=== PATIENT | male | born 1960 | race Caucasian/White ===

== ENCOUNTER 2016-10-05 13:07 | Day surgery (SDC) | payer OTHER ==
[2016-10-05 13:32] VITALS: BP 167/112; PULSE 97; RESP 20; TEMP 99.3; O2SAT 93
[2016-10-05] MEDS ORDERED: SUST600T PO (13:38)
[2016-10-05] MEDS ORDERED: TAMS5CAP PO (13:38)
[2016-10-05] MEDS ORDERED: HYDR25TA5 PO (13:38)
[2016-10-05] MEDS ORDERED: POTA-245 PO (13:38)
[2016-10-05] MEDS ORDERED: VALT1TAB PO (13:38)
[2016-10-05] MEDS ORDERED: AMLO10TA2 PO (13:38)
[2016-10-05] MEDS ORDERED: CLON0.2T PO (13:38)
[2016-10-05] MEDS ORDERED: EMTR1TAB4 PO (13:38)
[2016-10-05] MEDS ORDERED: ROSU10 PO (13:38)
[2016-10-05] MEDS ORDERED: ZOFR4TAB PO (13:38)
[2016-10-05] MEDS ORDERED: ASPI-147 PO (13:38)
[2016-10-05] MEDS ORDERED: LISI40TA PO (13:38)
[2016-10-05] MEDS ORDERED: SODIUM CHLOR 0.9% 1000 ML INJ 1,000 ML IV ONE (14:15)
[2016-10-05] MEDS ORDERED: PANTOPRAZOLE SODIUM 40 MG VIAL IV PUSH ONE (14:15)
[2016-10-05 14:23] VITALS: BP 166/112; PULSE 106; RESP 22; O2SAT 90
--- NOTE | 2016-10-05 15:42 | PD.RAD ---
Radiology Post PICC Prog Note Pre Procedure Diagnosis: (1) Dehydration Post Procedure Diagnosis: (1) Dehydration Procedure: Left PICC line placement Procedure Date: Oct 05, 2016 Supervising Radiologist Melchor Hogan Proceduralist/Assist: Mana Daniels RT(R)() Device Side: Left Italian: 4 single lumen cm: 49 Catheter: Power PICC Plan of Activity Patient to Unit: ROPU Patient Condition: Good PICC line can be used immediately Melchor Hogan MD Oct 05, 2016 15:42
[2016-10-05] MEDS ORDERED: SODIUM CHLORIDE 0.9% FLUSH 5 ML FLUSH IVF PRN ×2 (15:45)
[2016-10-06] MEDS ORDERED: SODIUM CHLORIDE 0.9% FLUSH 5 ML FLUSH IVF SCH (09:00)
--- NOTE | 2016-10-06 14:10 | RADRPT ---
EXAM DATE/TIME: 10/05/2016 14:07 [facility] COMPARISON: No previous studies available for comparison. INDICATIONS : Patient with dehydration in need of PICC line placement. MEDICAL HISTORY : HIV, HTN, HLD, Vitamin D deficiency SURGICAL HISTORY : None ENCOUNTER: Initial ACUITY: 2 weeks PAIN SCORE: 10/10 LOCATION: abdomen FLUORO TIME: 0.3 minutes IMAGE SERIES: 1 ACCESS: Left brachial vein DEVICE(S): 1.) 4 Lao single lumen 49 cm Xcela Power PICC PROCEDURE : 1. Ultrasound guidance for venous catheterization. 2. Fluoroscopic guidance. 3. Ultrasound & fluoroscopic guided central venous Power PICC line placement. The risks, benefits and alternatives to the procedure were explained and verbal and written consent w as obtained. The site was prepped in sterile fashion. Full sterile technique was used, including ca p, mask, sterile gloves and gown and a large sterile sheet. Hand hygiene and 2% chlorhexidine prep w as utilized per protocol for cutaneous antisepsis with appropriate dry time for site. The skin and s ubcutaneous tissues were infiltrated with local anesthetic solution. Under direct ultrasound guidance, a suitable vein was accessed and a measuring guidewire was introduc ed and positioned in the central venous system. The ultrasound images depicting access guidance were saved and stored to PACS for permanent record. A Power Injectable PICC line was cut to prescribed length and introduced, positioned with tip at the cavoatrial junction level. The line was flushed and secured per protocol. CONCLUSION: 1. Uncomplicated central venous Power PICC line placement. 2. The PICC line can be used immediately. Melchor Hogan MD on October 06, 2016 at 14:09 Board Certified Radiologist. This report was verified electronically.
== END 2016-10-05 16:30 | disposition home or self-care (01) ==
LOC: HROP 13:07 → HRIP 13:09 → HROP 16:30
PROVIDERS: ATTEND Specialist
DX: E86.0 Dehydration (principal); B20 Human immunodeficiency virus [HIV] disease; E55.9 Vitamin D deficiency, unspecified; E78.5 Hyperlipidemia, unspecified; I10 Essential (primary) hypertension
CPT/HCPCS: 36569; 76937; 77001; 96365; 96366; C1751; C9113; J1642; J7030

== ENCOUNTER 2016-10-16 11:38 | Inpatient (IN) | payer OTHER ==
[~2016-10-16] VITALS: Ht 177.8 cm; Wt 92.3 kg
[2016-10-16] VITALS (8 sets, daily range): BP systolic 119–139; BP diastolic 66–84; PULSE 96–104; RESP 16–32; TEMP 97.5–98.3; O2SAT 89–98
[~2016-10-16 11:38] MED LIST: AMLO10TA2 PO; ASPI-147 PO; CLON0.2T PO; EMTR1TAB4 PO; HYDR25TA5 PO; LISI40TA PO; POTA-245 PO; ROSU10 PO; SUST600T PO; TAMS5CAP PO; VALT1TAB PO; ZOFR4TAB PO
--- NOTE | 2016-10-16 11:58 | PD ---
HPI Chief Complaint: Respiratory Distress Time Seen by Provider: 11:58 Travel History International Travel<30 days: No Contact w/Intl Traveler<30days: No Traveled to known affect area: No History of Present Illness HPI 56-year-old male presents to the emergency department with complaint of confusion 1 week and onset of shortness of breath of the past few days. He had an ultrasound of his liver week ago and was told that he had 2 masses on his liver. He went for an MRI this morning and was unable to finish the test because he couldn't hold his breath long enough. Reports right upper quadrant abdominal pain. Denies fever, chills, nausea, vomiting. Reports constipation and has not had a good bowel movement in approximately 2-1/2 weeks. Did have a small bowel movement last night. Denies hematochezia. Denies chest pain. Had a PICC line, which he says he rolled over on this morning and it came out. Denies tobacco use, drug use, EtOH. Has not drank alcohol for 2 years. Patient is HIV positive and is on medications. Follows up with Dr. Evans, HIV specialist. History of HIV, hypertension, increased cholesterol. Primary care provider is Dr. Mauricio. Allergies to Levaquin. No other modifying factors or associated signs and symptoms. [facility] Social History Alcohol Use: No Tobacco Use: No Substance Use: No Allergies-Medications (Allergen,Severity, Reaction): Coded Allergies: Levaquin (Verified Allergy, Severe, Lethargy, 10/05/16) Reported Meds & Prescriptions Reported Meds & Active Scripts Active Reported Descovy (Emtricitabine-Tenofovir Alafenamide) 200-25 mg Tab 1 Tab PO DAILY Sustiva (Efavirenz) 600 Mg Tab 600 Mg PO HS Flomax (Tamsulosin HCl) 0.4 Mg Cap 0.4 Mg PO HS Crestor (Rosuvastatin Calcium) 10 Mg Tab 10 Mg PO HS Amlodipine (Amlodipine Besylate) 10 Mg Tab 10 Mg PO HS Valtrex (Valacyclovir HCl) 1 Gm Tab 1,000 Mg PO DAILY Clonidine (Clonidine HCl) 0.2 Mg Tab 0.2 Mg PO HS Zofran (Ondansetron HCl) 4 Mg Tab 4 Mg PO Q6HR PRN Ecotrin Low Strength (Aspirin) 81 Mg Tabdr 81 Mg PO DAILY Hydrochlorothiazide 25 Mg Tab 25 Mg PO DAILY Lisinopril 40 Mg Tab 40 Mg PO DAILY Potassium Chloride ER (Potassium Chloride) 20 Meq Tab 20 Meq PO BID Review of Systems Except as stated in HPI: all other systems reviewed are Neg Physical Exam Narrative GENERAL: Well-nourished, well-developed male patient, in no acute distress SKIN: Warm and dry. Jaundiced. HEAD: Atraumatic. Normocephalic. EYES: Pupils equal and round. With scleral icterus. No injection or drainage. ENT: Mucosa pink and moist. Airway patent. EARS: Bilateral pinnae and external canals appear within normal limits. NECK: Trachea midline. CARDIOVASCULAR: Tachycardic rate and rhythm in low 100's. No murmur appreciated. RESPIRATORY: Tachypneic to low 30's. No accessory muscle use. Clear to auscultation. Breath sounds equal bilaterally. No retractions. Patient able to speak in full sentences. GASTROINTESTINAL: Abdomen distended, firm, and with right upper quadrant tenderness on palpation; with ascites. Hepatic and splenic margins not palpable. Hypoactive bowel sounds are active 4 quadrants. MUSCULOSKELETAL: No obvious deformities. No clubbing. No cyanosis. No edema. NEUROLOGICAL: Awake and alert. Oriented 3. No obvious cranial nerve deficits. Motor grossly within normal limits. Normal speech. Moves all extremities. 5/5 strength to all extremities. PSYCHIATRIC: Appropriate mood and affect; insight and judgment normal. Data Data Last Documented VS Vital Signs Date Time Temp Pulse Resp B/P Pulse Ox O2 Delivery O2 Flow Rate FiO2 10/16/16 12:35 20 10/16/16 11:56 91 Nasal Cannula 2 10/16/16 11:54 98.3 103 123/81 Orders Complete Blood Count With Diff (10/16/16 11:57) Comprehensive Metabolic Panel (10/16/16 11:57) Lipase (10/16/16 11:57) Prothrombin Time / Inr (Pt) (10/16/16 11:57) Act Partial Throm Time (Ptt) (10/16/16 11:57) Iv Access Insert/Monitor (10/16/16 11:57) Ecg Monitoring (10/16/16 11:57) Oximetry (10/16/16 11:57) Sodium Chloride 0.9% Flush (Ns Flush) (10/16/16 12:00) Chest, Single Ap (10/16/16 11:57) Oxygen Administration (10/16/16 11:57) Ammonia (10/16/16 11:57) Pantoprazole Inj (Protonix Inj) (10/16/16 12:15) Morphine Inj (Morphine Inj) (10/16/16 12:30) Ct Abd/Pel W/O Iv Contrast (10/16/16 ) Lactulose Liq (Lactulose Liq) (10/16/16 16:45) Labs Laboratory Tests Test 10/16/16 12:05 White Blood Count 14.3 TH/MM3 Red Blood Count 4.38 MIL/MM3 Hemoglobin 13.7 GM/DL Hematocrit 40.6 % Mean Corpuscular Volume 92.7 FL Mean Corpuscular Hemoglobin 31.3 PG Mean Corpuscular Hemoglobin 33.8 % Concent Red Cell Distribution Width 15.8 % Platelet Count 173 TH/MM3 Mean Platelet Volume 8.8 FL Neutrophils (%) (Auto) 85.5 % Lymphocytes (%) (Auto) 4.7 % Monocytes (%) (Auto) 9.6 % Eosinophils (%) (Auto) 0.0 % Basophils (%) (Auto) 0.2 % Neutrophils # (Auto) 12.2 TH/MM3 Lymphocytes # (Auto) 0.7 TH/MM3 Monocytes # (Auto) 1.4 TH/MM3 Eosinophils # (Auto) 0.0 TH/MM3 Basophils # (Auto) 0.0 TH/MM3 CBC Comment DIFF FINAL Differential Comment Prothrombin Time 16.4 SEC Prothromb Time International 1.5 RATIO Ratio Activated Partial 35.2 SEC Thromboplast Time Sodium Level 137 MEQ/L Potassium Level 4.9 MEQ/L Chloride Level 101 MEQ/L Carbon Dioxide Level 19.0 MEQ/L Anion Gap 17 MEQ/L Blood Urea Nitrogen 86 MG/DL Creatinine 2.49 MG/DL Estimat Glomerular Filtration 27 ML/MIN Rate Random Glucose 136 MG/DL Calcium Level 8.6 MG/DL Total Bilirubin 8.8 MG/DL Aspartate Amino Transf 245 U/L (AST/SGOT) Alanine Aminotransferase 90 U/L (ALT/SGPT) Alkaline Phosphatase 920 U/L Ammonia 48 MCMOL/L Total Protein 6.9 GM/DL Albumin 2.1 GM/DL Lipase 324 U/L MDM Medical Decision Making Medical Screen Exam Complete: Yes Emergency Medical Condition: Yes Medical Record Reviewed: Yes Differential Diagnosis Elevated ammonia level, pleural effusion, cirrhosis of liver, metastatic liver disease Narrative Course 56-year-old male, with HIV, presents with shortness of breath. He had an ultrasound a week ago and was told he had 2 masses on his liver. He was having an MRI done this morning and could not hold his breath long enough to complete the test. Patient is jaundiced and was scleral icterus. Patient speaking in full sentences. He follows up with Dr. Evans, HIV specialist. His primary care provider is Dr. Mauricio. Patient placed on cardiopulmonary monitor. IV site obtained. Supplemental Oxygen provided for oxygen saturation 89% on room air. CBC, CMP, lipase, ammonia ordered. Chest x-ray ordered. Ct abd/pelvis and CT thorax/chest ordered. 1234: WBC 14.3. Ammonia 48. 1307: Carbon dioxide 19.0. Anion gap 17. BUN 86. Creatinine 2.49. GFR 27. Total bilirubin 8.8. AST 245. ALT 90. Alkaline phosphatase 920. Chest x-ray concludes Mild streaky opacity at both lung bases with no focal consolidation. This may represent atelectasis and/or scarring. 1611: CT abdomen/pelvis concludes: 1. The liver is enlarged and inhomogeneous with several ill-defined low attenuation masslike areas which are nonspecific but concerning for metastatic disease especially given the adenopathy. The liver margin is mildly lobular and this could indicate cirrhosis. 2. Retroperitoneal adenopathy. 3. Moderate amount of ascitic fluid. 4. Nonspecific, nonobstructive bowel gas pattern most consistent with a mild ileus. 5. Mild diverticulosis. 6. Consolidation in both lung bases with air bronchograms Call out to KESHAWN for inpatient admission. 1640: I discussed the patient with EKSHAWN Sanchez, for patient admission. Physician Communication Physician Communication KESHAWN Sanchez Diagnosis Primary Impression: Confusion Additional Impression: Hypoxia Admitting Information Admitting Physician Requests: Admit Isa Manjarrez Oct 16, 2016 11:58
[2016-10-16] MEDS ORDERED: SODIUM CHLORIDE 0.9% FLUSH 5 ML FLUSH IVF PRN (12:00)
[2016-10-16] MEDS ORDERED: PANTOPRAZOLE SODIUM 40 MG VIAL IV PUSH ONE (12:15)
[2016-10-16 12:23] LABS: AUTOMATED NEUTROPHIL # 12.2 TH/MM3 (1.8-7.7); BASOPHIL % 0.2 % (0.0-2.0); HEMATOCRIT 40.6 % (39.0-51.0); HEMO FLAGS DIFF FINAL; LYMPH % 4.7 % (9.0-44.0); LYMPHOCYTE # 0.7 TH/MM3 (1.0-4.8); MEAN CELL VOLUME 92.7 FL (80.0-100.0); MEAN CORPUSCULAR HEMOGLOBIN 31.3 PG (27.0-34.0); MEAN CORPUSCULAR HGB CONC 33.8 % (32.0-36.0); MONO % 9.6 % (0.0-8.0); NEUT % 85.5 % (16.0-70.0); PLATELET COUNT 173 TH/MM3 (150-450); RED BLOOD COUNT 4.38 MIL/MM3 (4.50-5.90); RED CELL DISTRIBUTION WIDTH 15.8 % (11.6-17.2); WHITE BLOOD COUNT 14.3 TH/MM3 (4.0-11.0)
[2016-10-16] MEDS ORDERED: POTA-163 PO (12:23)
[2016-10-16] MEDS ORDERED: MORPHINE SULFATE 4 MG/ML INJ IV PUSH ONE (12:30)
[2016-10-16 12:34] LABS: INTERNATIONAL NORMALIZED RATIO 1.5 RATIO; PROTHROMBIN TIME - PATIENT 16.4 SEC (9.8-11.6)
[2016-10-16 12:37] LABS: APTT (PATIENT) 35.2 SEC (24.3-30.1)
[2016-10-16 13:02] LABS: ALKALINE PHOSPHATASE 920 U/L (45-117); ALT (GPT) 90 U/L (12-78); ANION GAP 17 MEQ/L (5-15); AST (GOT) 245 U/L (15-37); BLOOD UREA NITROGEN 86 MG/DL (7-18); CHLORIDE 101 MEQ/L (98-107); GLOMERULAR FILTRATION RATE 27 ML/MIN (>89); POTASSIUM 4.9 MEQ/L (3.5-5.1); SODIUM (NA) 137 MEQ/L (136-145); TOTAL BILIRUBIN ADULT 8.8 MG/DL (0.2-1.0)
--- NOTE | 2016-10-16 13:04 | RADRPT ---
EXAM DATE/TIME: 10/16/2016 12:48 [facility] COMPARISON: No previous studies available for comparison. INDICATIONS : Shortness of breath. MEDICAL HISTORY : None. SURGICAL HISTORY : None. ENCOUNTER: Initial ACUITY: 2 weeks PAIN SCORE: 0/10 LOCATION: Bilateral chest FINDINGS: A single view of the chest demonstrates the lungs to be symmetrically aerated without evidence of mas s, confluent infiltrate or effusion. There is mild streaky opacity at both lung bases. The cardiomed iastinal contours are unremarkable. Osseous structures are intact. CONCLUSION: Mild streaky opacity at both lung bases with no focal consolidation. This may represe nt atelectasis and/or scarring. Jayson Fernandez MD on October 16, 2016 at 13:01 Board Certified Radiologist. This report was verified electronically.
--- NOTE | 2016-10-16 15:53 | RADRPT ---
EXAM DATE/TIME: 10/16/2016 15:31 [facility] COMPARISON: No previous studies available for comparison. INDICATIONS : Upper abdominal pain, nausea. ORAL CONTRAST: No oral contrast ingested. RADIATION DOSE: 14.83 CTDIvol (mGy) MEDICAL HISTORY : Hypertension. HIV. Liver mass. SURGICAL HISTORY : None. ENCOUNTER: Initial ACUITY: 3 weeks PAIN SCALE: 7/10 LOCATION: Bilateral upper quadrant TECHNIQUE: Volumetric scanning of the abdomen and pelvis was performed. Using automated exposure control and ad justment of the mA and/or kV according to patient size, radiation dose was kept as low as reasonably achievable to obtain optimal diagnostic quality images. FINDINGS: LOWER LUNGS: There is subluxation in both posterior lung bases with air bronchograms. LIVER: The liver is mildly enlarged with diffuse heterogeneity. There are multiple subtle low attenuation ar eas measuring up to approximately 1 cm in diameter. There is a moderate amount of surrounding ascitic fluid. There is no intrahepatic ductal dilatation. There is fluid surrounding the gallbladder. Bridget n of the liver appears mildly lobular area SPLEEN: Normal size without lesion. PANCREAS: Within normal limits. KIDNEYS: Normal in size and shape. There is no mass, stone, or hydronephrosis. ADRENAL GLANDS: Within normal limits. VASCULAR: There is no aortic aneurysm. BOWEL/MESENTERY: Moderate amount ascitic fluid is present extending down both paracolic gutters into the pelvis. Scatt ered diverticuli are present in the colon. There is no free air. There are several loops of nondilate d air-containing small bowel several small air-fluid levels. ABDOMINAL WALL: Within normal limits. RETROPERITONEUM: Retroperitoneal adenopathy is present with multiple enlarged lymph nodes measuring up to approximatel y 2.6 cm. Adenopathy is noted in the colby hepatis as well. BLADDER: No wall thickening or mass. REPRODUCTIVE: Within normal limits. INGUINAL: There is no lymphadenopathy or hernia. MUSCULOSKELETAL: Within normal limits for patient age. CONCLUSION: 1. The liver is enlarged and inhomogeneous with several ill-defined low attenuation masslike areas wh ich are nonspecific but concerning for metastatic disease especially given the adenopathy. The liver margin is mildly lobular and this could indicate cirrhosis. 2. Retroperitoneal adenopathy. 3. Moderate amount of ascitic fluid. 4. Nonspecific, nonobstructive bowel gas pattern most consistent with a mild ileus. 5. Mild diverticulosis. 6. Consolidation in both lung bases with air bronchograms. Jayson Fernandez MD on October 16, 2016 at 15:46 Board Certified Radiologist. This report was verified electronically.
[2016-10-16] MEDS ORDERED: LACTULOSE SYRUP 20 GM/30 ML CUP PO ONE (16:45)
--- NOTE | 2016-10-16 19:26 | HHI.HP ---
[facility] Unknown Admission Diagnosis CONFUSION, HYPOXIA Diagnoses: (1) Encephalopathy Diagnosis: Principal (2) Liver masses Diagnosis: Principal (3) Coagulopathy Diagnosis: Principal (4) Ascites Diagnosis: Principal (5) PNA (pneumonia) Diagnosis: Principal (6) Hypoxia Diagnosis: Principal (7) HIV (human immunodeficiency virus infection) Diagnosis: Principal (8) SENG (acute kidney injury) Diagnosis: Principal Travel History International Travel<30 Days: No Contact w/Intl Traveler <30 Da: No Traveled to Known Affected Are: No History of Present Illness This is a 56-year-old male with a PMH of HIV on HAART (Unknown CD4), HTN and Hyperlipidemia who was sent to the ER from [facility] secondary to SOB and hypoxia. Per pt he's had ongoing SOB and worsening abdominal distention x2- 3 wks, has been following w/ PCP for symptoms, s/p US w/ apparent liver masses and referred by PCP to [facility] for MRI Abd. Was at [facility] for MRI today , but had acute onset of severe SOB while lying flat, unable to complete MRI. On arrival, O2 sat 89% on RA, BP 123/81, HR 103, Afebrile. WBC 14.3. Creatinine 2.49, no previous labs for comparison. AST 245, ALT 90, ALP 920. Ammonia 48. CXR w/ mild streaky opacity at lung bases w/ no consolidation. CT Abd/Pelvis w/ enlarged liver and several ill-defined low attenuation masslike areas concerning for metastatic disease, likely cirrhosis, retroperitoneal adenopathy, moderate amount of ascites, mild ileus and bilateral lung base consolidation with air bronchograms. Pt noted to have transient episodes of confusion while in ER. S/p Lactulose in ER. Denies any previous knowledge of liver masses prior to recent ultrasound, quit drinking 2yrs ago. Review of Systems Except as stated in HPI: all other systems reviewed are Neg ROS: 14 point review of systems otherwise negative. Past Family Social History Past Medical History PMH: HIV on HAART (Unknown CD4), HTN and Hyperlipidemia Past Surgical History PAST SURGICAL HISTORY: None Allergies: Coded Allergies: Levaquin (Verified Allergy, Severe, Lethargy, 10/05/16) Family History PAST FAMILY HISTORY: Reviewed. No h/o DM or CAD Social History PAST SOCIAL HISTORY: Negative for alcohol, tobacco or drugs. Physical Exam Vital Signs Vital Signs Date Time Temp Pulse Resp B/P Pulse Ox O2 Delivery O2 Flow Rate FiO2 10/16/16 18:53 96 18 119/66 96 Nasal Cannula 6 10/16/16 17:43 99 16 119/66 98 Room Air 10/16/16 16:00 98 20 135/84 96 Nasal Cannula 6 10/16/16 14:00 98 20 125/71 96 Nasal Cannula 6 10/16/16 12:35 20 10/16/16 11:56 91 Nasal Cannula 2 10/16/16 11:54 98.3 103 32 123/81 89 Physical Exam PE: GENERAL: Pleasant middle-aged white male in no acute distress. HEENT: PERRLA, EOMI. + scleral icterus or conjunctival pallor. No lid lag or facial droop. CARDIOVASCULAR: Regular rate and rhythm. No obvious murmurs to auscultation. No chest tenderness to palpation. RESPIRATORY: No obvious rhonchi or wheezing. Clear to auscultation. Breath sounds equal bilaterally. GASTROINTESTINAL: Abdomen distended but soft, +ascites, no tenderness to palpation. BS normal. MUSCULOSKELETAL: Extremities without clubbing, cyanosis, or edema. No obvious deformities. NEUROLOGICAL: Awake, alert and oriented x4. No focal neurologic deficits. Moving both upper and lower extremities spontaneously. Laboratory Laboratory Tests Test 10/16/16 12:05 White Blood Count 14.3 Red Blood Count 4.38 Hemoglobin 13.7 Hematocrit 40.6 Mean Corpuscular Volume 92.7 Mean Corpuscular Hemoglobin 31.3 Mean Corpuscular Hemoglobin 33.8 Concent Red Cell Distribution Width 15.8 Platelet Count 173 Mean Platelet Volume 8.8 Neutrophils (%) (Auto) 85.5 Lymphocytes (%) (Auto) 4.7 Monocytes (%) (Auto) 9.6 Eosinophils (%) (Auto) 0.0 Basophils (%) (Auto) 0.2 Neutrophils # (Auto) 12.2 Lymphocytes # (Auto) 0.7 Monocytes # (Auto) 1.4 Eosinophils # (Auto) 0.0 Basophils # (Auto) 0.0 CBC Comment DIFF FINAL Differential Comment Prothrombin Time 16.4 Prothromb Time International 1.5 Ratio Activated Partial 35.2 Thromboplast Time Sodium Level 137 Potassium Level 4.9 Chloride Level 101 Carbon Dioxide Level 19.0 Anion Gap 17 Blood Urea Nitrogen 86 Creatinine 2.49 Estimat Glomerular Filtration 27 Rate Random Glucose 136 Calcium Level 8.6 Total Bilirubin 8.8 Aspartate Amino Transf 245 (AST/SGOT) Alanine Aminotransferase 90 (ALT/SGPT) Alkaline Phosphatase 920 Ammonia 48 Total Protein 6.9 Albumin 2.1 Lipase 324 Result Diagram: 10/16/16 1205 10/16/16 1205 Assessment and Plan Problem List: (1) Encephalopathy ICD Code: G93.40 Status: Acute (2) Liver masses ICD Code: R16.0 Status: Acute (3) Ascites ICD Code: R18.8 Status: Acute (4) Coagulopathy ICD Code: D68.9 Status: Acute (5) PNA (pneumonia) ICD Code: J18.9 Status: Acute (6) Hypoxia ICD Code: R09.02 Status: Acute (7) HIV (human immunodeficiency virus infection) ICD Code: Z21 Status: Acute (8) SENG (acute kidney injury) ICD Code: N17.9 Status: Acute Assessment and Plan A/P: 1. Encephalopathy: Hepatic Encephalopathy. Secondary to new onset cirrhosis/ liver masses. Intermittent confusion. Ammonia elevated at 48, s/p Lactulose, will continue w/ Lactulose qid. 2. Liver Masses: newly diagnosed liver masses via outpatient US approx 1 wk ago per patient, CT Abd/Pelvis w/ enlarged liver and several masslike areas concerning for metastatic disease, cirrhosis, retroperitoneal adenopathy and moderate ascites, images reviewed by me. Will consult Oncology for further recommendations. Will obtain CT Chest and MRI Brain to eval for possible primary, however unable to use contrast due to renal insufficiency. 3. Ascites: secondary to above. New Onset. CT Abd/Pelvis w/ moderate ascites , +discomfort on exam. Will consult IR for Diagnostic/Therapeutic Paracentesis , check cytology, cell count, amylase, ldh, glucose. Start Propranolol and Aldactone-caution w/ renal insufficiency. 4. Elevated LFTs: no previous labs for comparison, AST 245, ALT 90, ALP 920, Total Bili 8.8, secondary to above findings. Will repeat labs in a.m. 5. Coagulopathy: secondary to cirrhosis/liver masses, INR 1.5, no active bleeding at this time. Will repeat INR in am 6. PNA: CXR w/ bilateral basilar streaky opacities, CT Abd/Pelvis w/ bilateral consolidations at bases w/ air bronchograms, start IV Rocephin/Zithro , DuoNeb prn 7. Hypoxia: Transient, resolved. Multifactorial-orthopnea due to ascites and PNA. O2 sat currently 98% on 5L NC. 8. HIV: Reports CD4 is "real good". Follows w/ Dr. Evans as outpatient, recent medication change in Aug 2016 during last visit, reports compliance w/ meds. Not on prophylaxis per pt. Will check repeat CD4. 9. SENG: Creatinine 2.49, no previous labs for comparison, presumably new. Check U/a, caution w/ diuresis. Nephro eval if needed. 10. DVT Prophylaxis: Pharmacologic contraindication secondary to coagulopathy. 11. Social work for d/c planning as needed. 12. Case discussed w/ ER physician at length. Physician Certification 2 Midnight Certification Type: Admission for Inpatient Services Order for Inpatient Services The services are ordered in accordance with Medicare regulations or non- Medicare payer requirements, as applicable. In the case of services not specified as inpatient-only, they are appropriately provided as inpatient services in accordance with the 2-midnight benchmark. Estimated LOS (days): 2 days is the estimated time the patient will need to remain in the hospital, assuming treatment plan goals are met and no additional complications. Post-Hospital Plan: Not yet determined Anca aBrker MD Oct 16, 2016 19:26
[2016-10-16] MEDS ORDERED: MORPHINE SULFATE 4 MG/ML INJ IV PRN (19:30)
[2016-10-16] MEDS ORDERED: ONDANSETRON HCL 4 MG/2 ML VIAL IVP PRN (19:30)
[2016-10-16] MEDS ORDERED: BISACODYL 10 MG SUPP PR PRN (19:30)
[2016-10-16] MEDS ORDERED: RESP: ALBUTEROL 2.5 MG/IPRATROPIUM 0.5 MG NEB (PRN) NEB (19:30)
[2016-10-16] MEDS ORDERED: SODIUM CHLORIDE 0.9% FLUSH 5 ML FLUSH FLUSH PRN (19:30)
[2016-10-16] MEDS: cefTRIAXone INJ 1,000 MG in SODIUM CHLORIDE 0.9% INJ 100 ML IV SCH (20:25)
--- NOTE | 2016-10-16 21:42 | RADRPT ---
EXAM DATE/TIME: 10/16/2016 21:19 [facility] COMPARISON: CHEST SINGLE AP, October 16, 2016, 12:48. INDICATIONS : Hypoxia; possible mass. RADIATION DOSE: 5.71 CTDIvol (mGy) MEDICAL HISTORY : Hypertension. HIV. Renal insufficiency. liver mass SURGICAL HISTORY : None. ENCOUNTER: Initial ACUITY: 1 day PAIN SCALE: 5/10 LOCATION: chest TECHNIQUE: Volumetric scanning of the chest was performed. Using automated exposure control and adjustment of t he mA and/or kV according to patient size, radiation dose was kept as low as reasonably achievable to obtain optimal diagnostic quality images. FINDINGS: LUNGS: There is minimal bibasilar consolidation in a somewhat linear configuration. Two 4 mm nodules right m iddle lobe. No concerning pulmonary nodule is visualized. PLEURAE: There is no pleural thickening or pleural effusion. MEDIASTINUM: The heart and great vessels demonstrate no acute abnormality. There is no mediastinal or hilar lymph adenopathy. AXILLAE: Within normal limits. No lymphadenopathy. MUSCULOSKELETAL: Within normal limits for patient age. MISCELLANEOUS: The visualized upper abdominal organs demonstrate no acute abnormality. There is abdominal ascites. CONCLUSION: 1. Minimal bibasilar consolidation in a somewhat linear configuration could be minimal infiltrate melissa roselia atelectasis. 2. Benign-appearing nodules right lung. Followup CT chest in 6-12 months. 3. Abdominal ascites. Isaak Jo MD on October 16, 2016 at 21:37 Board Certified Radiologist. This report was verified electronically.
[2016-10-16] MEDS: BUDESONIDE-FORMOTEROL 160/4.5 MCG INHALER INH SCH (22:07)
[2016-10-16] MEDS: SODIUM CHLORIDE 0.9% FLUSH 5 ML FLUSH FLUSH SCH (22:07)
[2016-10-16] MEDS: AZITHROMYCIN INJ 500 MG in SODIUM CHLOR 0.9% 250 ML INJ 250 ML IV SCH (22:08)
[2016-10-16] MEDS: guaiFENesin E.R. 600 MG TAB PO SCH (22:08)
[2016-10-16] MEDS: LACTULOSE SYRUP 20 GM/30 ML CUP PO SCH (22:08)
[2016-10-16] MEDS: TAMSULOSIN HCL 0.4 MG CAP PO SCH (22:08)
[2016-10-16] MEDS: PROPRANOLOL HCL 10 MG TAB PO SCH (23:20)
[2016-10-17 04:00] VITALS: BP 121/74; PULSE 87; RESP 22; TEMP 97.5; O2SAT 98
[2016-10-17 07:42] LABS: BASOPHIL # 0.1 TH/MM3 (0-0.2); BASOPHIL % 0.4 % (0.0-2.0); EOSINOPHIL % 0.1 % (0.0-4.0); HEMATOCRIT 40.4 % (39.0-51.0); HEMO FLAGS DIFF FINAL; INTERNATIONAL NORMALIZED RATIO 1.6 RATIO; LYMPHOCYTE # 0.8 TH/MM3 (1.0-4.8); MEAN CELL VOLUME 92.2 FL (80.0-100.0); MEAN CORPUSCULAR HEMOGLOBIN 31.4 PG (27.0-34.0); MEAN CORPUSCULAR HGB CONC 34.1 % (32.0-36.0); MONO % 8.2 % (0.0-8.0); NEUT % 86.3 % (16.0-70.0); PLATELET COUNT 166 TH/MM3 (150-450); PROTHROMBIN TIME - PATIENT 17.6 SEC (9.8-11.6); RED BLOOD COUNT 4.39 MIL/MM3 (4.50-5.90); RED CELL DISTRIBUTION WIDTH 16.3 % (11.6-17.2)
[2016-10-17 08:00] VITALS: PULSE 89; RESP 28; TEMP 97.3; O2SAT 93
[2016-10-17 08:07] LABS: ALKALINE PHOSPHATASE 845 U/L (45-117); TOTAL BILIRUBIN ADULT 10.7 MG/DL (0.2-1.0)
[2016-10-17 08:26] LABS: ANION GAP 16 MEQ/L (5-15)
[2016-10-17 08:38] LABS: ALT (GPT) 90 U/L (12-78); AST (GOT) 254 U/L (15-37); BICARBONATE 20.8 MEQ/L (21.0-32.0); BLOOD UREA NITROGEN 79 MG/DL (7-18); CHLORIDE 102 MEQ/L (98-107); GLOMERULAR FILTRATION RATE 38 ML/MIN (>89); LDH SERUM 614 U/L (87-241); POTASSIUM 4.7 MEQ/L (3.5-5.1); SODIUM (NA) 139 MEQ/L (136-145)
[2016-10-17] MEDS: TENOFOVIR ALAFENAMIDE PO SCH (09:00)
[2016-10-17] MEDS: EMTRICITABINE PO SCH (09:00)
[2016-10-17] MEDS: SODIUM CHLORIDE 0.9% FLUSH 5 ML FLUSH FLUSH SCH ×2 (10:45→20:54)
[2016-10-17] MEDS: guaiFENesin E.R. 600 MG TAB PO SCH ×2 (10:45→21:03)
[2016-10-17] MEDS: PROPRANOLOL HCL 10 MG TAB PO SCH ×2 (10:45→21:03)
[2016-10-17] MEDS: LACTULOSE SYRUP 20 GM/30 ML CUP PO SCH ×4 (10:45→21:03)
[2016-10-17] MEDS: SPIRONOLACTONE 50 MG TAB PO SCH (10:45)
[2016-10-17] MEDS: BUDESONIDE-FORMOTEROL 160/4.5 MCG INHALER INH SCH ×2 (10:45→21:04)
[2016-10-17 12:00] VITALS: BP 127/80; PULSE 83; RESP 24; TEMP 97.5; O2SAT 93
[2016-10-17] MEDS: valACYclovir HCL 500 MG TAB PO SCH (12:46)
--- NOTE | 2016-10-17 13:51 | HHI.PR ---
Subjective Remarks f/u for AMS and liver mass. Patient is AAO X 1. he knows name. patient stated he is going home and that his mom is going to pick him. He c/o RUQ pain. Denied any N/V. otherwise no other complaints. He stated he has a lot to do and will go home and come back tomorrow. no acute events. per nurse he told her that mother coming to drop off clothes. Objective Vitals Vital Signs Date Time Temp Pulse Resp B/P Pulse Ox O2 Delivery O2 Flow Rate FiO2 10/17/16 12:00 97.5 83 24 127/80 93 10/17/16 08:00 97.3 89 28 93 10/17/16 04:00 97.5 87 22 121/74 98 10/16/16 22:38 97.5 104 22 139/80 93 10/16/16 22:35 97.5 104 22 139/80 93 10/16/16 19:30 96 Nasal Cannula 6.00 10/16/16 18:53 96 18 119/66 96 Nasal Cannula 6 10/16/16 17:43 99 16 119/66 98 Room Air 10/16/16 16:00 98 20 135/84 96 Nasal Cannula 6 10/16/16 14:00 98 20 125/71 96 Nasal Cannula 6 I/O 10/16/16 10/16/16 10/16/16 10/17/16 10/17/16 10/17/16 07:00 15:00 23:00 07:00 15:00 23:00 Output Total 600 ml Balance -600 ml Output Urine Total 600 ml # Voids 2 Result Diagram: 10/17/1646 10/17/16 0646 Objective Remarks GENERAL: in NAD CARDIOVASCULAR: Regular rate and rhythm without murmurs, gallops, or rubs. RESPIRATORY: Breath sounds equal bilaterally. No accessory muscle use. GASTROINTESTINAL: Abdomen soft, non-tender, nondistended. + mild RUQ pain. MUSCULOSKELETAL: No cyanosis, or edema. BACK: Nontender without obvious deformity. No CVA tenderness. Medications and IVs Current Medications IV Flush (NS Flush) 2 ml UNSCH PRN IVF FLUSH AFTER USING IV ACCESS; Start 10/16 at 12:00 Pantoprazole Sodium (Protonix Inj) 40 mg ONCE ONCE IV PUSH Last administered on 10/16/16 12:09; Start 10/16/16 at 12:15; Stop 10/16/16 at 12:16; Status DC Morphine Sulfate (Morphine Inj) 4 mg ONCE ONCE IV PUSH Last administered on 12:28; Start 10/16/16 at 12:30; Stop 10/16/16 at 12:31; Status DC Lactulose (Lactulose Liq) 30 ml ONCE ONCE PO Last administered on 10/16/16 17 :43; Start 10/16/16 at 16:45; Stop 10/16/16 at 16:46; Status DC Albuterol/ Ipratropium (Duoneb Neb) 1 ampule Q4HR NEB PRN NEB SOB/WHEEZING; Start 10/16/16 at 19:30 Budesonide/ Formoterol Fumarate (Symbicort 160-4.5 Inh) 2 puff Q12HR INH Last administered on 10/17/16 10:45; Start 10/16/16 at 21:00 Guaifenesin 600 mg 600 mg BID PO Last administered on 10/17/16 10:45; Start at 21:00 Ceftriaxone Sodium 1000 mg/ Sodium Chloride 100 ml @ 200 mls/hr Q24H IV Last administered on 10/16/16 20:25; Start 10/16/16 at 20:00 Azithromycin/ Sodium Chloride (Zithromax Inj/ NS 250 ml Inj) 250 ml @ 250 mls/ hr Q24H IV Last administered on 10/16/16 22:08; Start 10/16/16 at 21:00 Lactulose (Lactulose Liq) 30 ml QID PO Last administered on 10/17/16 10:45; Start 10/16/16 at 21:00 IV Flush (NS Flush) 2 ml UNSCH PRN FLUSH FLUSH AFTER USING IV ACCESS; Start at 19:30 IV Flush (NS Flush) 2 ml BID FLUSH Last administered on 10/17/16 10:45; Start 10/16/16 at 21:00 Ondansetron HCl (Zofran Inj) 4 mg Q6H PRN IVP NAUSEA OR VOMITING; Start at 19:30 Bisacodyl (Dulcolax Supp) 10 mg DAILY PRN IA CONSTIPATION; Start 10/16/16 at 19 :30 Morphine Sulfate (Morphine Inj) 2 mg Q3H PRN IV Pain 6-10; Start 10/16/16 at 19 :30 Oxycodone HCl (Roxicodone) 5 mg Q4H PRN PO PAIN SCALE 3 TO 5; Start 10/16/16 at 19:30 Efavirenz (Sustiva) 600 mg HS PO Last administered on 10/16/16 23:20; Start at 21:00 Tamsulosin HCl (Flomax) 0.4 mg HS PO Last administered on 10/16/16 22:08; Start 10/16/16 at 21:00 Valacyclovir HCl (Valtrex) 1,000 mg DAILY PO Last administered on 10/17/16 12: 46; Start 10/17/16 at 09:00 Patient Own Medication PT OWN MED: DESCOVY (EMTRICITABINE-TENO... DAILY PO ; Start 10/17/16 at 09:00 Propranolol HCl (Inderal) 10 mg Q12HR PO Last administered on 10/17/16 10:45; Start 10/16/16 at 21:15 Spironolactone (Aldactone) 50 mg DAILY PO Last administered on 10/17/16 10:45 ; Start 10/17/16 at 09:00 A/P Problem List: (1) Encephalopathy ICD Code: G93.40 Status: Acute (2) Liver masses ICD Code: R16.0 Status: Acute (3) Ascites ICD Code: R18.8 Status: Acute (4) Coagulopathy ICD Code: D68.9 Status: Acute (5) PNA (pneumonia) ICD Code: J18.9 Status: Acute (6) Hypoxia ICD Code: R09.02 Status: Acute (7) HIV (human immunodeficiency virus infection) ICD Code: Z21 Status: Acute (8) SENG (acute kidney injury) ICD Code: N17.9 Status: Acute Assessment and Plan Hepatic Encephalopathy -Secondary to new onset cirrhosis/liver masses. Intermittent confusion. Ammonia elevated at 48, s/p Lactulose - will continue w/ Lactulose qid. Liver Masses - newly diagnosed liver masses via outpatient US approx 1 wk ago per patient, CT Abd/Pelvis w/ enlarged liver and several masslike areas concerning for metastatic disease, cirrhosis, retroperitoneal adenopathy and moderate ascites - Oncology consulted for for further recommendations -pending CT Chest and MRI Brain to eval for possible primary, however unable to use contrast due to renal insufficiency. Ascites -secondary to above. New Onset. CT Abd/Pelvis w/ moderate ascites, + discomfort on exam. Will consult IR for Diagnostic/Therapeutic Paracentesis, check cytology, cell count, amylase, ldh, glucose. -on Propranolol and Aldactone-caution w/ renal insufficiency. Elevated LFTs - no previous labs for comparison, AST 245, ALT 90, ALP 920, Total Bili 8.8, secondary to above findings. -continue to trend. will need hepatitis panel. Coagulopathy - secondary to cirrhosis/liver masses, INR 1.5, no active bleeding at this time. -continue to monitor PNA - CXR w/ bilateral basilar streaky opacities, CT Abd/Pelvis w/ bilateral consolidations at bases w/ air bronchograms -continue IV Rocephin/Zithro, DuoNeb prn Hypoxia - Transient, resolved. Multifactorial-orthopnea due to ascites and PNA. O2 sat currently 98% on 5L NC. HIV - Reports CD4 is "real good". Follows w/ Dr. Evans as outpatient, recent medication change in Aug 2016 during last visit, reports compliance w/ meds. Not on prophylaxis per pt. -pending CD4. SENG - Creatinine 2.49, no previous labs for comparison -IMPROVED -continue to monitor. DVT Prophylaxis: Pharmacologic contraindication secondary to coagulopathy. Discharge Planning patient continues to be confused intermittently. I will consult Psychiatrist to determine if he has the capacity to make medical decision since he is asking to leave. At the moment I told the nurse he cannot leave AMA since he is confused. patient will required at least a few days in hospital due to multiple acute complications. Lois Meyers MD Oct 17, 2016 13:51
[2016-10-17 16:00] VITALS: BP 131/78; PULSE 87; RESP 12; TEMP 97.1; O2SAT 91
[2016-10-17 18:36] LABS: PERITONEAL LYMPHS 70 %; PERITONEAL MONOS 22 %; PERITONEAL POLYS(SEGS) 8 %; PERITONEAL WBC 432 /MM3 (0-10)
--- NOTE | 2016-10-17 19:15 | MB ---
cc: MARIBEL REEVES M.D., DANIEL A. M.D. MAZAL, CAMILLE MD RAUSCH,DONNELL MORA M.D., MD DATE OF CONSULTATION: 10/17/2016 REASON FOR CONSULTATION: Consultation requested by Dr. Barker for evaluation of liver masses. HISTORY OF PRESENT ILLNESS: This is a 56-year-old male. He has a history of hypertension, hyperlipidemia, and HIV positive for the last 7 years. He is homosexual. He got it from his ex-partner who has according to the patient's mom. The patient is under the care of Dr. Phi Evans and his primary physician is Dr. Mauricio in [place]. The patient has been sick for the last one month. His appetite is poor. He is not able to drink much fluids. His blood pressure was high and lisinopril was increased recently. The patient was found to have hypotension. He stopped taking all his medications. His blood pressure improved. Dr. Evans had placed a PICC line with the interventional radiologist about two weeks ago on October 05. The patient has been getting hydration, Zantac and nutrition through the PICC line. The patient had an ultrasound of the liver about a week ago which showed two liver masses. He was send to [facility] for an MRI of the liver. When the patient was there, he became quite short of breath and was unable to do the MRI. He was sent to the emergency room. The patient in the emergency room was found to be confused and short of breath. He was found to have abdominal distension and was complaining of abdominal pain. He had a CT scan of the abdomen and pelvis which showed the liver is enlarged and inhomogeneous with several ill-defined low attenuation mass-like areas which are nonspecific but concerning for metastatic disease, especially given the lymphadenopathy. The liver margin is mildly lobular and could indicate cirrhosis. He also has retroperitoneal lymphadenopathy. There is a moderate amount of ascitic fluid noted. Retroperitoneal lymphadenopathy is present with multiple enlarged lymph nodes measuring up to approximately 2.6 cm. There is colby hepatitis lymphadenopathy noted as well. The patient was admitted to the hospital by [facility]. I have been asked to see the patient for evaluation of multiple liver lesions. The patient had a CT scan of the chest which showed minimal bibasilar consolidation in a somewhat linear configuration which could be minimal infiltrate versus atelectasis. There are benign-appearing nodules noted in the right lung. The patient is confused. Most of the history is obtained through the patient's mom and sister who were present. The patient has been ill for the last one month. He denies any fever or night sweats but he has been losing weight. He has jaundice. His blood tests today to reveal a bilirubin of 10.7, AST is 254, ALT is 90 and alkaline phosphatase 845. Serum ammonia level is 48. LDH is 614. Albumin is 1.9. Creatinine yesterday was 2.49 and now is 1.87. The patient had a diagnostic and therapeutic paracentesis by interventional radiology and the results of that are still pending. PAST MEDICAL HISTORY 1. HIV positive for the last 7 years. 2. Homosexual. 3. Hypertension. 4. Hypercholesterolemia. 5. History of shingles. 6. Benign prostate hypertrophy. PAST SURGICAL HISTORY: 1. PICC line placement. 2. Colonoscopy about three weeks ago by Dr. Reeder which showed two polyps. ALLERGIES: Levaquin. MEDICATIONS: Medications prior to coming to the hospital: 1. Descovy. 2. Sustiva. 3. Flomax. 4. Crestor. 5. Amlodipine. 6. Valtrex. 7. Clonidine. 8. Zofran. 9. Aspirin. 10. Hydrochlorothiazide. 11. Lisinopril. 12. Potassium. FAMILY HISTORY: Father from diabetes mellitus and renal failure. Mother is alive and well. The patient has one brother and one sister both are alive with diabetes mellitus and hypertension. The patient does not have any children. SOCIAL HISTORY: The patient was never . He does not smoke cigarettes and does not drink alcohol anymore. He works at [employer]. The patient lives with his mom in [place]. PHYSICAL EXAMINATION: GENERAL: He is a well-developed, well-nourished white male in moderate distress. VITAL SIGNS: Temperature 97.1, heart rate is 87, blood pressure 131/78, O2 saturation 91% on room air. HEAD, EYES, EARS, NOSE, THROAT: Pupils equal, round and reactive to light and accommodation. Extraocular muscles intact. Sclerae are deeply icteric. Oral mucosa is dry. NECK: Cervical lymphadenopathy noted on the left side. He also has left supraclavicular lymphadenopathy. LUNGS: Lungs are clear. No wheezing, rhonchi or rales. HEART: Heart is regular rate and rhythm. ABDOMEN: Abdomen is distended, soft. Bowel sounds present. Unable to feel for liver and spleen due to the abdominal distension. EXTREMITIES: No pedal edema. NEUROLOGIC: Awake, alert, oriented times three. SKIN: Jaundiced. ASSESSMENT: 1. Left cervical, left supraclavicular colby hepatis and retroperitoneal lymphadenopathy. This is most likely consistent with non-Hodgkin's lymphoma until proven otherwise. 2. Multiple liver masses most likely due to lymphoma but other malignancy cannot be ruled out at this time. 3. Patient is severely jaundiced. He has painless jaundice with a bilirubin of 10.7 and elevated liver enzymes. 4. Cirrhosis of the liver with ascites. 5. HIV positive. 6. Acute renal failure most likely due to dehydration. 7. Hypertension. 8. Hyperlipidemia. PLAN: I have reviewed his available records and I have discussed with the patient's mom and his sister. The patient had a screening colonoscopy three weeks ago by Dr. Reeder in [facility]. According to the mom, the patient was found to have two polyps which were benign. This was a screening colonoscopy. He had an ultrasound of the abdomen a week ago which showed two liver masses. He was scheduled to have an MRI of the liver to define the liver masses. He had a CT scan of the abdomen and pelvis in the hospital which showed a port hepatis lymphadenopathy and several liver masses. I have earlier ordered the tumor markers. The beta hCG is normal at 2. The alpha-fetoprotein is normal at 0.9. The CEA is mildly elevated at 5.4, which is nonspecific. The CA 19-9 is elevated at 83. The patient does not have any pancreatic mass. This could be secondary to cholangiocarcinoma. I will consult GI for ERCP with stent placement as his bilirubin was 8.8 yesterday and today it is 10.7. His liver enzymes are also elevated. He has hepatic encephalopathy. The patient has acute renal failure. His creatinine was 2.49 and today it is 1.87, it is improving. We do not know his baseline creatinine. We do not have records from Dr. Evans's. We will ask the department secretary to obtain records from Dr. Evans tomorrow morning. The patient has palpable left cervical and left supraclavicular lymphadenopathy. I suspect that he has a lymphoma. I will ask the general surgery due to the supraclavicular lymph node biopsy for tissue diagnosis. At this time I will hold off on getting biopsy of the liver masses as he would need ERCP and maybe EUS. I have ordered the hepatitis profile for cirrhosis of the liver and the results of that are still pending. The patient has multiple tattoos and he is homosexual. He denies any IV drug abuse. I discussed with the patient's family that if lymphoma is confirmed, he would need chemotherapy. The patient's mom stated that it is difficult for her to travel to [facility] to get the treatment. She stated that they only live 7 minutes from [facility]. I suggested that they should make an appointment with make an appointment with an oncologist in the [place] area. She stated that the patient's dad used to go to an oncologist in [place] who is from the [facility], she could not remember his name; however, she will go home and try to find out the name of the oncologist who they are familiar with. I suggested that the [facility] has its own oncologists as well as there are two other groups, one is [facility] and the other one is [facility], Dr. Alejo's group. The patient had a paracentesis today and the results of that are still pending. The patient's family have asked several questions, and these were answered to their satisfaction. Further recommendations based on his hospital stay. Thank you for asking my opinion. Pal Reeves MD /RICCO /6:20 PM /6:52 PM
[2016-10-17 20:00] VITALS: BP 125/69; PULSE 87; RESP 22; TEMP 97.2; O2SAT 90
[2016-10-17] MEDS: cefTRIAXone INJ 1,000 MG in SODIUM CHLORIDE 0.9% INJ 100 ML IV SCH (21:03)
[2016-10-17] MEDS: TAMSULOSIN HCL 0.4 MG CAP PO SCH (21:03)
[2016-10-17] MEDS: AZITHROMYCIN INJ 500 MG in SODIUM CHLOR 0.9% 250 ML INJ 250 ML IV SCH (21:04)
[2016-10-18] VITALS (8 sets, daily range): BP systolic 92–101; BP diastolic 52–63; PULSE 78–85; RESP 16–20; TEMP 97.1–97.8; O2SAT 90–94
[2016-10-18 06:08] LABS: HEMATOCRIT 39.8 % (39.0-51.0); MEAN CELL VOLUME 91.9 FL (80.0-100.0); MEAN CORPUSCULAR HEMOGLOBIN 31.4 PG (27.0-34.0); MEAN CORPUSCULAR HGB CONC 34.1 % (32.0-36.0); PLATELET COUNT 150 TH/MM3 (150-450); RED BLOOD COUNT 4.33 MIL/MM3 (4.50-5.90); RED CELL DISTRIBUTION WIDTH 16.4 % (11.6-17.2); REVIEW FLAG FINAL; WHITE BLOOD COUNT 14.6 TH/MM3 (4.0-11.0)
[2016-10-18 06:32] LABS: INTERNATIONAL NORMALIZED RATIO 1.8 RATIO; PROTHROMBIN TIME - PATIENT 20.3 SEC (9.8-11.6)
[2016-10-18 06:38] LABS: ALKALINE PHOSPHATASE 792 U/L (45-117); ALT (GPT) 92 U/L (12-78); ANION GAP 16 MEQ/L (5-15); AST (GOT) 294 U/L (15-37); BICARBONATE 21.6 MEQ/L (21.0-32.0); BLOOD UREA NITROGEN 88 MG/DL (7-18); CHLORIDE 101 MEQ/L (98-107); GLOMERULAR FILTRATION RATE 36 ML/MIN (>89); POTASSIUM 4.1 MEQ/L (3.5-5.1); SODIUM (NA) 139 MEQ/L (136-145)
--- NOTE | 2016-10-18 08:30 | RADRPT ---
EXAM DATE/TIME: 10/17/2016 08:42 [facility] COMPARISON: No previous studies available for comparison. EXTERNAL COMPARISON: [facility], US ABDOMEN, COMPLETE, Oct 04 2016. INDICATIONS : Ascites. MEDICAL HISTORY : Hypertension. Dyspnea. Liver masses. HIV. SURGICAL HISTORY : None. ENCOUNTER: Initial ACUITY: 1 week PAIN SCORE: 7/10 LOCATION: Right lower quadrant FLUID: Total volume of 2600 cc of dark yellow fluid was removed. Fluid was sent to lab for ordered studies. Post procedure scanning reveals no hematoma or other complication. TECHNIQUE: 1. Ultrasound guidance for abdominal paracentesis. 2. Paracentesis. The risks, benefits, and alternatives to ultrasound guided paracentesis were explained to the patient in detail including the risk of bleeding and infection. Written and verbal informed consent was obt ained. With the patient on the ultrasound table, ultrasound imaging was used to select the most appropriate approach for paracentesis. Overlying skin was prepped and draped in the usual sterile fashion and wi th a local anesthetic, a dermatotomy was made with an 11 blade scalpel. A 6 [place] [id number] ca theter was introduced into the peritoneal cavity and fluid was collected. The patient tolerated the procedure well and left the ultrasound suite in stable condition. CONCLUSION: Uncomplicated ultrasound guided paracentesis. Ten Loyola MD on October 18, 2016 at 8:28 Board Certified Radiologist. This report was verified electronically.
[2016-10-18] MEDS: BUDESONIDE-FORMOTEROL 160/4.5 MCG INHALER INH SCH ×2 (10:25→22:15)
--- NOTE | 2016-10-18 10:25 | PD.ONC.PN ---
Subjective Subjective Remarks Afebrile overnight. patient resting comfortably. He is frustrated that he is sick and in the hospital, and frustrated with the staff taking care of him. Denies pain. He feels very alert today. Objective Data Date Time Temp Pulse Resp B/P Pulse Ox O2 Delivery O2 Flow Rate FiO2 10/18/16 08:00 97.3 82 20 98/56 93 10/18/16 04:00 97.2 83 20 101/60 91 10/18/16 00:00 97.8 85 20 95/56 90 10/17/16 20:00 97.2 87 22 125/69 90 10/17/16 16:00 97.1 87 12 131/78 91 10/17/16 12:00 97.5 83 24 127/80 93 Result Diagram: 10/18/16 0525 10/18/16 0525 Laboratory Results Laboratory Tests Test 10/17/16 10/18/16 15:50 05:25 Peritoneal Fluid WBC 432 /MM3 Peritoneal Fluid RBC 1186 /MM3 Peritoneal Fluid Neutrophils 8 % Peritoneal Fluid Lymphocytes 70 % Peritoneal Fluid Monocytes 22 % Peritoneal Fluid Total Protein 1.5 GM/DL Peritoneal Fluid Albumin 0.5 G/DL Peritoneal Fluid LDH 123 U/L Peritoneal Fluid Glucose 138 MG/DL Peritoneal Fluid Amylase 21 U/L White Blood Count 14.6 TH/MM3 Red Blood Count 4.33 MIL/MM3 Hemoglobin 13.6 GM/DL Hematocrit 39.8 % Mean Corpuscular Volume 91.9 FL Mean Corpuscular Hemoglobin 31.4 PG Mean Corpuscular Hemoglobin 34.1 % Concent Red Cell Distribution Width 16.4 % Platelet Count 150 TH/MM3 Mean Platelet Volume 8.6 FL Prothrombin Time 20.3 SEC Prothromb Time International 1.8 RATIO Ratio Sodium Level 139 MEQ/L Potassium Level 4.1 MEQ/L Chloride Level 101 MEQ/L Carbon Dioxide Level 21.6 MEQ/L Anion Gap 16 MEQ/L Blood Urea Nitrogen 88 MG/DL Creatinine 1.96 MG/DL Estimat Glomerular Filtration 36 ML/MIN Rate Random Glucose 75 MG/DL Calcium Level 8.4 MG/DL Total Bilirubin 12.0 MG/DL Aspartate Amino Transf 294 U/L (AST/SGOT) Alanine Aminotransferase 92 U/L (ALT/SGPT) Alkaline Phosphatase 792 U/L Total Protein 5.7 GM/DL Albumin 1.7 GM/DL Culture Results Microbiology Date/Time Procedure Status Source Growth 10/17/16 15:50 Gram Stain - Final Resulted Fluid Peritoneal Fluid 10/17/16 15:50 Body Fluid Culture Resulted Fluid Peritoneal Fluid Pending Administered Medications Medications (Trade) Dose Ordered Sig/Elisa Route PRN Reason Start Time Stop Time Status Last Admin Dose Admin Budesonide/ Formoterol Fumarate (Symbicort 160-4.5 Inh) 2 puff Q12HR INH 10/16/16 21:00 10/17/16 21:04 Guaifenesin 600 mg 600 mg BID PO 10/16/16 21:00 10/17/16 21:03 Ceftriaxone Sodium 1000 mg/ Sodium Chloride 100 ml @ 200 mls/hr Q24H IV 10/16/16 20:00 10/17/16 21:03 Azithromycin/ Sodium Chloride (Zithromax Inj/ NS 250 ml Inj) 250 ml @ 250 mls/hr Q24H IV 10/16/16 21:00 10/17/16 21:04 Lactulose (Lactulose Liq) 30 ml QID PO 10/16/16 21:00 10/17/16 21:03 IV Flush (NS Flush) 2 ml BID FLUSH 10/16/16 21:00 10/17/16 20:54 Oxycodone HCl (Roxicodone) 5 mg Q4H PRN PO PAIN SCALE 3 TO 5 10/16/16 19:30 10/17/16 18:43 Efavirenz (Sustiva) 600 mg HS PO 10/16/16 21:00 10/17/16 21:03 Tamsulosin HCl (Flomax) 0.4 mg HS PO 10/16/16 21:00 10/17/16 21:03 Valacyclovir HCl (Valtrex) 1,000 mg DAILY PO 10/17/16 09:00 10/17/16 12:46 Propranolol HCl (Inderal) 10 mg Q12HR PO 10/16/16 21:15 10/17/16 21:03 Spironolactone (Aldactone) 50 mg DAILY PO 10/17/16 09:00 10/17/16 10:45 Objective Remarks GENERAL: Middle aged severely jaundiced male, lying in bed in nad. Sister at bedside. SKIN: Warm and dry. HEAD: Normocephalic. EYES: ++ scleral icterus. No injection or drainage. NECK: Supple, trachea midline. CARDIOVASCULAR: Regular rate and rhythm RESPIRATORY: Breath sounds equal bilaterally. No accessory muscle use. GASTROINTESTINAL: Abdomen soft, non-tender, nondistended. EXTREMITIES: No cyanosis NEUROLOGICAL: awake and alert, normal speech. able to move extremities. Assessment/Plan Problem List: (1) Lymphadenopathy Status: Acute Plan: 10/18: GS consulted for lymph node biopsy. --Left cervical, left supraclavicular colby hepatis and retroperitoneal lymphadenopathy. consistent with non-Hodgkin's lymphoma until proven otherwise. (2) Liver masses Status: Acute Plan: 10/18: MRCP today per GI, depending on the results, they may do ERCP. d/w patient and sister waiting on the results of these two studies. sister is working on getting the patient an appointment with [facility]. release formed signed and faxed to Dr. Evans's office to obtain medical records. Patient and sister were also requesting healthcare surrogate form which I provided to them and went over with them. --CT ab/pelvis shows liver is enlarged and inhomogeneous with several ill- defined low attenuation mass-like areas which are nonspecific but concerning for metastatic disease, especially given the lymphadenopathy. The liver margin is mildly lobular and could indicate cirrhosis. +retroperitoneal lymphadenopathy. --CT chest minimal bibasilar consolidation in a somewhat linear configuration which could be minimal infiltrate versus atelectasis. --s/p diagnostic and therapeutic paracentesis by interventional radiology, pathology pending Assessment 56y/o male with multiple liver masses. h/o HIV positive for the last 7 years. Homosexual. Hypertension. Hypercholesterolemia. History of shingles. Benign prostate hypertrophy. Attending Statement no c/o More awake and alert. GI input noted. MRCP GS input noted. LN bx on tue. Await records from Dr Evans. The exam, history, and the medical decision-making described in the above note were completed with the assistance of the mid-level provider. I reviewed and agree with the findings presented. I attest that I had a [id number] encounter with the patient on the same day, and personally performed and documented my assessment and findings in the medical record. Samantha Hampton Oct 18, 2016 10:25 Kathy Reeves MD Oct 18, 2016 23:45
[2016-10-18] MEDS: SPIRONOLACTONE 50 MG TAB PO SCH (10:26)
[2016-10-18] MEDS: guaiFENesin E.R. 600 MG TAB PO SCH ×2 (10:26→22:15)
[2016-10-18] MEDS: LACTULOSE SYRUP 20 GM/30 ML CUP PO SCH ×4 (10:26→22:17)
[2016-10-18] MEDS: SODIUM CHLORIDE 0.9% FLUSH 5 ML FLUSH FLUSH SCH ×2 (10:26→22:16)
[2016-10-18] MEDS: PROPRANOLOL HCL 10 MG TAB PO SCH ×2 (10:26→22:16)
[2016-10-18] MEDS: EMTRICITABINE PO SCH (10:27)
[2016-10-18] MEDS: TENOFOVIR ALAFENAMIDE PO SCH (10:27)
[2016-10-18] MEDS: valACYclovir HCL 500 MG TAB PO SCH (10:27)
[2016-10-18] MEDS ORDERED: GADOBENATE DIM PF 529 MG/ML 20ML VIAL (for RAD MRI) IV ONE (12:00)
--- NOTE | 2016-10-18 13:13 | PD.CONS ---
HPI History of Present Illness This is a 56 year old male patient who came to the ER for evaluation of abdominal pain and jaundice. He has a hx of HIV (diagnosed 7 years ago, on HAART therapy) and was recently found to have 2 liver masses by US as outpatient last week. He reports that he was doing well up until 2-3 weeks ago when he started having intermittent abdominal pain. He describes this as an intermittent sharp pain in his left upper quadrant/epigastric area radiating to the right upper quadrant and his entire abdomen and back. He cannot identify any aggravating or alleviating factors. He denies any associated nausea or vomiting. He does report a decreased appetite and states that he has lost about 18 pounds over the past 2 weeks. On admission he was noted to have elevated LFTs. Abdomen/Pelvis CT (10/16/16)----> 1. The liver is enlarged and inhomogeneous with several ill-defined low attenuation masslike areas which are nonspecific but concerning for metastatic disease especially given the adenopathy. The liver margin is mildly lobular and this could indicate cirrhosis. 2. Retroperitoneal adenopathy. 3. Moderate amount of ascitic fluid. 4. Nonspecific, nonobstructive bowel gas pattern most consistent with a mild ileus. 5. Mild diverticulosis. 6. Consolidation in both lung bases with air bronchograms. He has just returned from MRCP, although the report is not available yet. He denies any bowel changes, melena, or hematochezia. He denies any history of hepatitis or known liver issues. He reports that he has never been a heavy drinker. He denies any family history of esophageal, gastric , colorectal cancer. He had a colonoscopy 3 weeks ago and had 2 benign polyps removed at that time. He thought that this was done by Dr. Prince that his mother came in and reminded him that it was actually Dr. Hines. (Ghazal Crockett) PFSH Past Medical History HIV on HAART HTN Hyperlipidemia Colon polyps Shingles BPH Past Surgical History Colonoscopy PICC line in past (Ghazal Crockett) Coded Allergies: Levaquin (Verified Allergy, Severe, Lethargy, 10/05/16) Medications Allergies Coded Allergies Type Severity Reaction Last Updated Verified Levaquin Allergy Severe Lethargy 10/05/16 Yes Active Scripts Medications Dose Route/Sig Days Date Category Potassium Chloride ER (Potassium Chloride) 20 Meq Tab 20 Meq PO BID 10/16/16 Reported Descovy (Emtricitabine-Tenofovir Alafenamide) 200-25 mg Tab 1 Tab PO DAILY 10/05/16 Reported Sustiva (Efavirenz) 600 Mg Tab 600 Mg PO HS 10/05/16 Reported Flomax (Tamsulosin HCl) 0.4 Mg Cap 0.4 Mg PO HS 10/05/16 Reported Crestor (Rosuvastatin Calcium) 10 Mg Tab 10 Mg PO HS 10/05/16 Reported Amlodipine (Amlodipine Besylate) 10 Mg Tab 10 Mg PO HS 10/05/16 Reported Valtrex (Valacyclovir HCl) 1 Gm Tab 1,000 Mg PO DAILY 10/05/16 Reported Clonidine (Clonidine HCl) 0.2 Mg Tab 0.2 Mg PO HS 10/05/16 Reported Zofran (Ondansetron HCl) 4 Mg Tab 4 Mg PO Q6HR PRN 10/05/16 Reported Ecotrin Low Strength (Aspirin) 81 Mg Tabdr 81 Mg PO DAILY 10/05/16 Reported Hydrochlorothiazide 25 Mg Tab 25 Mg PO DAILY 10/05/16 Reported Lisinopril 40 Mg Tab 40 Mg PO DAILY 10/05/16 Reported Family History Noncontributory Social History Negative for alcohol, tobacco or drugs. Did smoke for about 20 years, quit 2 years ago (Ghazal Crockett) Review of Systems Constitutional: COMPLAINS OF: Fatigue, Weight loss, Change in appetite, DENIES : Fever, Chills Respiratory: DENIES: Cough, Shortness of breath Cardiovascular: DENIES: Palpitations Gastrointestinal: COMPLAINS OF: Abdominal pain, Anorexia, DENIES: Black stools , Bloody stools, Constipation, Diarrhea, Nausea, Vomiting, Heartburn Musculoskeletal: COMPLAINS OF: Back pain Integumentary: COMPLAINS OF: Jaundice Hematologic/lymphatic: DENIES: Bruising Neurologic: DENIES: Headache Psychiatric: COMPLAINS OF: Confusion (Ghazal Crockett) GI Exam Vitals I&O Vital Signs Date Time Temp Pulse Resp B/P Pulse Ox O2 Delivery O2 Flow Rate FiO2 10/18/16 08:00 97.3 82 20 98/56 93 10/18/16 04:00 97.2 83 20 101/60 91 10/18/16 00:00 97.8 85 20 95/56 90 10/17/16 20:00 97.2 87 22 125/69 90 10/17/16 16:00 97.1 87 12 131/78 91 I/O 10/17/16 10/17/16 10/17/16 10/18/16 10/18/16 10/18/16 07:00 15:00 23:00 07:00 15:00 23:00 Intake Total 840 ml 240 ml Balance 840 ml 240 ml Intake Oral 840 ml 240 ml # Voids 2 # Bowel Movements 2 0 Imaging Last Impressions Cyst Biopsy Asp-Paracentesis US 10/17/16 0000 Signed Impressions: Service Date/Time: Monday, October 17, 2016 08:42 - CONCLUSION: Uncomplicated ultrasound guided paracentesis. Ten Loyola MD Chest X-Ray 10/16/16 1157 Signed Impressions: Service Date/Time: Sunday, October 16, 2016 12:48 - CONCLUSION: Mild streaky opacity at both lung bases with no focal consolidation. This may represent atelectasis and/or scarring. Jayson Fernandez MD Chest CT 10/16/16 0000 Signed Impressions: Service Date/Time: Sunday, October 16, 2016 21:19 - CONCLUSION: 1. Minimal bibasilar consolidation in a somewhat linear configuration could be minimal infiltrate versus atelectasis. 2. Benign-appearing nodules right lung. Followup CT chest in 6-12 months. 3. Abdominal ascites. Isaak Jo MD Abdomen/Pelvis CT 10/16/16 0000 Signed Impressions: Service Date/Time: Sunday, October 16, 2016 15:31 - CONCLUSION: 1. The liver is enlarged and inhomogeneous with several ill-defined low attenuation masslike areas which are nonspecific but concerning for metastatic disease especially given the adenopathy. The liver margin is mildly lobular and this could indicate cirrhosis. 2. Retroperitoneal adenopathy. 3. Moderate amount of ascitic fluid. 4. Nonspecific, nonobstructive bowel gas pattern most consistent with a mild ileus. 5. Mild diverticulosis. 6. Consolidation in both lung bases with air bronchograms. Jayson Fernandez MD Laboratory Test 10/17/16 10/18/16 15:50 05:25 Peritoneal Fluid WBC 432 /MM3 Peritoneal Fluid RBC 1186 /MM3 Peritoneal Fluid Neutrophils 8 % Peritoneal Fluid Lymphocytes 70 % Peritoneal Fluid Monocytes 22 % Peritoneal Fluid Total Protein 1.5 GM/DL Peritoneal Fluid Albumin 0.5 G/DL Peritoneal Fluid LDH 123 U/L Peritoneal Fluid Glucose 138 MG/DL Peritoneal Fluid Amylase 21 U/L White Blood Count 14.6 TH/MM3 Red Blood Count 4.33 MIL/MM3 Hemoglobin 13.6 GM/DL Hematocrit 39.8 % Mean Corpuscular Volume 91.9 FL Mean Corpuscular Hemoglobin 31.4 PG Mean Corpuscular Hemoglobin 34.1 % Concent Red Cell Distribution Width 16.4 % Platelet Count 150 TH/MM3 Mean Platelet Volume 8.6 FL Prothrombin Time 20.3 SEC Prothromb Time International 1.8 RATIO Ratio Sodium Level 139 MEQ/L Potassium Level 4.1 MEQ/L Chloride Level 101 MEQ/L Carbon Dioxide Level 21.6 MEQ/L Anion Gap 16 MEQ/L Blood Urea Nitrogen 88 MG/DL Creatinine 1.96 MG/DL Estimat Glomerular Filtration 36 ML/MIN Rate Random Glucose 75 MG/DL Calcium Level 8.4 MG/DL Total Bilirubin 12.0 MG/DL Aspartate Amino Transf 294 U/L (AST/SGOT) Alanine Aminotransferase 92 U/L (ALT/SGPT) Alkaline Phosphatase 792 U/L Total Protein 5.7 GM/DL Albumin 1.7 GM/DL Date/Time Procedure Status Source Growth 10/17/16 15:50 Gram Stain - Final Resulted Fluid Peritoneal Fluid 10/17/16 15:50 Body Fluid Culture - Preliminary Resulted Fluid Peritoneal Fluid NO GROWTH IN 24 HOURS. Physical Examination HEENT: Normocephalic; atraumatic; + jaundice. CHEST: CTA CARDIAC: RRR ABDOMEN: Soft, round, nondistended, diffuse tenderness; no hepatosplenomegaly; bowel sounds are present in all four quadrants. ascites EXTREMITIES: No clubbing, cyanosis, or edema. SKIN: + jaundice. TELECOMMUNICATIONS FIELD ENGINEER: No focal deficits; lethargic, oriented to person, month, place, and reason for being here, although poor historian. (Ghazal Crockett) Assessment and Plan Plan ASSESSMENT: - Jaundice/Elevated LFTs. Abdomen/Pelvis CT (10/16/16)----> 1. The liver is enlarged and inhomogeneous with several ill-defined low attenuation masslike areas which are nonspecific but concerning for metastatic disease especially given the adenopathy. The liver margin is mildly lobular and this could indicate cirrhosis. 2. Retroperitoneal adenopathy. 3. Moderate amount of ascitic fluid. 4. Nonspecific, nonobstructive bowel gas pattern most consistent with a mild ileus. 5. Mild diverticulosis. 6. Consolidation in both lung bases with air bronchograms. T. Bili 12.0, AST 294, ALT 92, Alk Phosph 792. Needs MRCP. - Liver mass. CT as above. Tumor markers with AFP 0.9, CEA 5.4, Ca 19-9 83.1. S/P diagnostic paracentesis and fluid was sent for cytology. Pt denies any hx of hepatitis or liver disease, never a drinker. Hepatitis panel pending. Recently had colonoscopy 3 weeks ago and had 2 polyps removed, patient states he was told these were benign. (Pt originally said this was Dr. Reeder, but mother clarified that it was actually Dr. Hines). Oncology following. - Abdominal pain. C/O abdominal pain x 2-3 weeks with decreased appetite/weight loss. - Anorexia, Abn. wt. loss. 18 lbs over 2 weeks. - Ascites. S/P Diagnostic paracentesis with removal of 2,600 (10/17). Cytology pending. - Leukocytosis. WBC 14.6. Afebrile. - Coagulopathy. PT 20.3, INR 1.8. - Acute kidney injury. 1.96. - HIV, on HAART therapy. Dx 7 years ago. States that this is well controlled although he does not know his exact numbers. PLAN: - Clear liquids - MRCP with/without contrast- spoke to MRI, this will not be able to be done until tonight because he just received contrast for MRI brain. - Await hepatitis profile. - DREW, ASMA, AMA - Ferritin, Iron Saturation - Ceruloplasmin, Alpha 1 Antitrypsin - Monitor CBC, LFT, INR - ? need for ERCP with stent placement, depending on results of MRCP - Supportive care - Further recommendations to follow based on results of above - Pt seen and examined by Dr. Valencia and myself and this note is written on her behalf (Ghazal Crockett BLACK OFF WORKER) Physician Comments seen, examined agree with above we will await mrcp result, based on this further w-up-liver biopsy vs ercp/eus will be determined (Naz Valencia MD) KeiraGhazal FERNANDO Oct 18, 2016 13:12 Naz Valencia MD Oct 18, 2016 20:27
--- NOTE | 2016-10-18 13:16 | HHI.PR ---
Subjective Remarks f/u for abdominal pain and liver mass. patient's sister is at the bedside. Patient stated abdominal pain has improved. He denies nausea vomiting. Patient has no complaints. Patient able to tell me his name and that he is in the hospital. He was also able to me the month and year after 3 tries. I told patient what happened yesterday and initially he did not remember it then he stated he remembered. Otherwise no acute events. Objective Vitals Vital Signs Date Time Temp Pulse Resp B/P Pulse Ox O2 Delivery O2 Flow Rate FiO2 10/18/16 12:43 93 Nasal Cannula 1.50 10/18/16 08:00 97.3 82 20 98/56 93 10/18/16 04:00 97.2 83 20 101/60 91 10/18/16 00:00 97.8 85 20 95/56 90 10/17/16 20:00 97.2 87 22 125/69 90 10/17/16 16:00 97.1 87 12 131/78 91 I/O 10/17/16 10/17/16 10/17/16 10/18/16 10/18/16 10/18/16 07:00 15:00 23:00 07:00 15:00 23:00 Intake Total 840 ml 240 ml Balance 840 ml 240 ml Intake Oral 840 ml 240 ml # Voids 2 # Bowel Movements 2 0 Result Diagram: 10/18/1625 10/18/16 05 Objective Remarks GENERAL: in NAD sclera icterus CARDIOVASCULAR: Regular rate and rhythm without murmurs, gallops, or rubs. RESPIRATORY: Breath sounds equal bilaterally. No accessory muscle use. GASTROINTESTINAL: Abdomen soft, non-tender, nondistended. + mild RUQ pain. MUSCULOSKELETAL: No cyanosis, or edema. BACK: Nontender without obvious deformity. No CVA tenderness. Medications and IVs Current Medications IV Flush (NS Flush) 2 ml UNSCH PRN IVF FLUSH AFTER USING IV ACCESS; Start 10/16 at 12:00 Pantoprazole Sodium (Protonix Inj) 40 mg ONCE ONCE IV PUSH Last administered on 10/16/16 12:09; Start 10/16/16 at 12:15; Stop 10/16/16 at 12:16; Status DC Morphine Sulfate (Morphine Inj) 4 mg ONCE ONCE IV PUSH Last administered on 12:28; Start 10/16/16 at 12:30; Stop 10/16/16 at 12:31; Status DC Lactulose (Lactulose Liq) 30 ml ONCE ONCE PO Last administered on 10/16/16 17 :43; Start 10/16/16 at 16:45; Stop 10/16/16 at 16:46; Status DC Albuterol/ Ipratropium (Duoneb Neb) 1 ampule Q4HR NEB PRN NEB SOB/WHEEZING; Start 10/16/16 at 19:30 Budesonide/ Formoterol Fumarate (Symbicort 160-4.5 Inh) 2 puff Q12HR INH Last administered on 10/18/16 10:25; Start 10/16/16 at 21:00 Guaifenesin 600 mg 600 mg BID PO Last administered on 10/18/16 10:26; Start at 21:00 Ceftriaxone Sodium 1000 mg/ Sodium Chloride 100 ml @ 200 mls/hr Q24H IV Last administered on 10/17/16 21:03; Start 10/16/16 at 20:00 Azithromycin/ Sodium Chloride (Zithromax Inj/ NS 250 ml Inj) 250 ml @ 250 mls/ hr Q24H IV Last administered on 10/17/16 21:04; Start 10/16/16 at 21:00 Lactulose (Lactulose Liq) 30 ml QID PO Last administered on 10/18/16 10:26; Start 10/16/16 at 21:00 IV Flush (NS Flush) 2 ml UNSCH PRN FLUSH FLUSH AFTER USING IV ACCESS; Start at 19:30 IV Flush (NS Flush) 2 ml BID FLUSH Last administered on 10/18/16 10:26; Start 10/16/16 at 21:00 Ondansetron HCl (Zofran Inj) 4 mg Q6H PRN IVP NAUSEA OR VOMITING; Start at 19:30 Bisacodyl (Dulcolax Supp) 10 mg DAILY PRN FL CONSTIPATION; Start 10/16/16 at 19 :30 Morphine Sulfate (Morphine Inj) 2 mg Q3H PRN IV Pain 6-10; Start 10/16/16 at 19 :30 Oxycodone HCl (Roxicodone) 5 mg Q4H PRN PO PAIN SCALE 3 TO 5 Last administered on 10/17/16 18:43; Start 10/16/16 at 19:30 Efavirenz (Sustiva) 600 mg HS PO Last administered on 10/17/16 21:03; Start at 21:00 Tamsulosin HCl (Flomax) 0.4 mg HS PO Last administered on 10/17/16 21:03; Start 10/16/16 at 21:00 Valacyclovir HCl (Valtrex) 1,000 mg DAILY PO Last administered on 10/18/16 10: 27; Start 10/17/16 at 09:00 Patient Own Medication PT OWN MED: DESCOVY (EMTRICITABINE-TENO... DAILY PO ; Start 10/17/16 at 09:00 Propranolol HCl (Inderal) 10 mg Q12HR PO Last administered on 10/18/16 10:26; Start 10/16/16 at 21:15 Spironolactone (Aldactone) 50 mg DAILY PO Last administered on 10/18/16 10:26 ; Start 10/17/16 at 09:00 Gadobenate Dimeglumine (Multihance Pf Inj) 19 ml STK-MED ONCE IV Last administered on 10/18/16 12:00; Start 10/18/16 at 12:00; Stop 10/18/16 at 12:01 ; Status DC A/P Problem List: (1) Encephalopathy ICD Code: G93.40 Status: Acute (2) Liver masses ICD Code: R16.0 Status: Acute (3) Ascites ICD Code: R18.8 Status: Acute (4) Coagulopathy ICD Code: D68.9 Status: Acute (5) PNA (pneumonia) ICD Code: J18.9 Status: Acute (6) Hypoxia ICD Code: R09.02 Status: Acute (7) HIV (human immunodeficiency virus infection) ICD Code: Z21 Status: Acute (8) SENG (acute kidney injury) ICD Code: N17.9 Status: Acute Assessment and Plan Hepatic Encephalopathy -Secondary to new onset cirrhosis/liver masses. Intermittent confusion. Ammonia elevated at 48, s/p Lactulose - will continue w/ Lactulose qid. Liver Masses - newly diagnosed liver masses via outpatient US approx 1 wk ago per patient, CT Abd/Pelvis w/ enlarged liver and several masslike areas concerning for metastatic disease, cirrhosis, retroperitoneal adenopathy and moderate ascites - Oncology consulted and aprreciate recommendation. patient will cervical lymph node biopsy by surgery. -pending MRI of brain. -patient will get MRCP today. GI gg. ARF -improved then worsening and most likely due to liver disease. -do not have baseline Cr. -consult railroad maintenance clerk. Ascites -secondary to above. New Onset. CT Abd/Pelvis w/ moderate ascites -on Propranolol and Aldactone-caution w/ renal insufficiency. -GI consulted. pending culture and cytology of fluid. Elevated LFTs - no previous labs for comparison, AST 245, ALT 90, ALP 920, Total Bili 8.8, secondary to above findings. -continue to trend. pending hepatitis panel. Coagulopathy - secondary to cirrhosis/liver masses, INR 1.8 now, no active bleeding at this time. -continue to monitor PNA - CXR w/ bilateral basilar streaky opacities, CT Abd/Pelvis w/ bilateral consolidations at bases w/ air bronchograms -continue IV Rocephin/Zithro, DuoNeb prn Hypoxia - Transient, resolved. Multifactorial-orthopnea due to ascites and PNA. O2 sat currently 98% on 5L NC. HIV - Reports CD4 is "real good". Follows w/ Dr. Evans as outpatient, recent medication change in Aug 2016 during last visit, reports compliance w/ meds. Not on prophylaxis per pt. -pending CD4. DVT Prophylaxis: Pharmacologic contraindication secondary to coagulopathy. Discharge Planning patient continues to be confused intermittently. Psychiatrist consulted to evaluate capacity. Per sister at bedside she is making the medical decisions. Lois Meyers MD Oct 18, 2016 13:16 Lois Meyers MD Oct 18, 2016 13:16
[2016-10-18 14:02] LABS: TRANSFERRIN IRON PROFILE 90 MG/DL (200-360)
[2016-10-18 14:05] LABS: FERRITIN 906 NG/ML (26-388)
--- NOTE | 2016-10-18 15:19 | RADRPT ---
EXAM DATE/TIME: 10/18/2016 11:45 [facility] COMPARISON: No previous studies available for comparison. INDICATIONS : Mass. CONTRAST: 19 cc Multihance (gadobenate) IV MEDICAL HISTORY : Hypertension. SURGICAL HISTORY : None. ENCOUNTER: Subsequent ACUITY: 3 day PAIN SCORE: 4/10 LOCATION: Bilateral cranial TECH NOTE: TECHNIQUE: Multiplanar, multisequence MRI of the brain was performed both prior to and following the administrat ion of paramagnetic contrast. FINDINGS: CEREBRUM: The ventricles are normal for age. No evidence of midline shift, mass lesion, hemorrhage or acute in farction. No extraaxial fluid collections are seen. The pituitary gland and suprasellar cistern are normal in configuration. WHITE MATTER: No significant signal abnormalities are seen in the white matter. POSTERIOR FOSSA: The cerebellum and brainstem are intact. The 4th ventricle is midline. The cerebellopontine angle is unremarkable. The cerebellar tonsils are normal in position. DIFFUSION IMAGING: No focal areas of restricted diffusion are seen. No evidence of acute infarction. EXTRACRANIAL: The visualized portions of the orbits and paranasal sinuses are unremarkable. POST-CONTRAST: No abnormal areas of parenchymal or dural enhancement. No evidence of blood-brain barrier breakdown. CONCLUSION: 1. Negative examination. Phi Anne MD on October 18, 2016 at 15:13 Board Certified Radiologist. This report was verified electronically.
--- NOTE | 2016-10-18 16:04 | PD.CONS ---
cc: Preston Sommer MD [facility] Service CONSULTATION NOTE FOR SURGICAL ATTENDING, DR. PRESTON SOMMER General surgery Consult Requested By Dr. Reeves Reason for Consult Left supraclavicular lymph node biopsy Primary Care Physician Unknown History of Present Illness This is a 56-year-old male with a past medical history of HIV, hypertension and hyperlipidemia who was sent to the emergency department from [facility] secondary to shortness of breath and hypoxia. The patient complains of ongoing shortness of breath and worsening abdominal distention it has been imaged by his PCP for the symptoms. He was scheduled for an MRI of his abdomen but was unable to lay flat and became short of breath. Dr. Reeves evaluated the patient and found a palpable left cervical and left supraclavicular lymphadenopathy suspicious for lymphoma. A general surgery consultation has been requested for biopsy of this. Review of Systems Constitutional: COMPLAINS OF: Fatigue Endocrine: DENIES: Polydipsia, Polyuria, Polyphagia Eyes: DENIES: Diplopia Ears, nose, mouth, throat: DENIES: Hearing loss Respiratory: COMPLAINS OF: Shortness of breath Cardiovascular: DENIES: Chest pain Gastrointestinal: COMPLAINS OF: Abdominal pain Genitourinary: DENIES: Urinary incontinence Musculoskeletal: DENIES: Muscle aches, Stiffness Integumentary: DENIES: Abnormal pigmentation Hematologic/lymphatic: DENIES: Bruising Immunologic/allergic: DENIES: Eczema Neurologic: DENIES: Abnormal gait Psychiatric: DENIES: Confusion, Mood changes Past Family Social History Past Medical History HIV Hypertension Hyperlipidemia Past Surgical History None Reported Medications See chart Allergies: Coded Allergies: Levaquin (Verified Allergy, Severe, Lethargy, 10/05/16) Active Ordered Medications Current Medications Medications (Trade) Dose Ordered Sig/Elisa Route Start Time Stop Time Status Last Admin (NS Flush) 2 ml UNSCH PRN IVF 10/16/16 12:00 (Symbicort 160-4.5 Inh) 2 puff Q12HR INH 10/16/16 21:00 10/18/16 10:25 Guaifenesin 600 mg 600 mg BID PO 10/16/16 21:00 10/18/16 10:26 Ceftriaxone Sodium 1000 mg/ Sodium Chloride 100 ml @ 200 mls/hr Q24H IV 10/16/16 20:00 10/17/16 21:03 (Zithromax Inj/ NS 250 ml Inj) 250 ml @ 250 mls/hr Q24H IV 10/16/16 21:00 10/17/16 21:04 (Lactulose Liq) 30 ml QID PO 10/16/16 21:00 10/18/16 13:47 (NS Flush) 2 ml UNSCH PRN FLUSH 10/16/16 19:30 (NS Flush) 2 ml BID FLUSH 10/16/16 21:00 10/18/16 10:26 (Zofran Inj) 4 mg Q6H PRN IVP 10/16/16 19:30 (Dulcolax Supp) 10 mg DAILY PRN AK 10/16/16 19:30 (Morphine Inj) 2 mg Q3H PRN IV 10/16/16 19:30 (Roxicodone) 5 mg Q4H PRN PO 10/16/16 19:30 10/17/16 18:43 (Sustiva) 600 mg HS PO 10/16/16 21:00 10/17/16 21:03 (Flomax) 0.4 mg HS PO 10/16/16 21:00 10/17/16 21:03 (Valtrex) 1,000 mg DAILY PO 10/17/16 09:00 10/18/16 10:27 Patient Own Medication PT OWN MED: DESCOVY (EMTRICITABINE-TENO... DAILY PO 10/17/16 09:00 (Inderal) 10 mg Q12HR PO 10/16/16 21:15 10/18/16 10:26 (Aldactone) 50 mg DAILY PO 10/17/16 09:00 10/18/16 10:26 Family History Noncontributory Social History Denies alcohol use Denies tobacco use Denies illicit drug use Physical Exam Vital Signs Vital Signs Date Time Temp Pulse Resp B/P Pulse Ox O2 Delivery O2 Flow Rate FiO2 10/18/16 14:42 80 10/18/16 12:43 93 Nasal Cannula 1.50 10/18/16 08:00 97.3 82 20 98/56 93 10/18/16 04:00 97.2 83 20 101/60 91 10/18/16 00:00 97.8 85 20 95/56 90 10/17/16 20:00 97.2 87 22 125/69 90 10/17/16 16:00 97.1 87 12 131/78 91 Physical Exam GENERAL: Patient resting in bed in no acute distress SKIN: Warm and dry. HEAD: Atraumatic. Normocephalic. EYES: Pupils equal and round. No scleral icterus. No injection or drainage. ENT: No nasal bleeding or discharge. Mucous membranes pink and moist. NECK: Trachea midline. Palpable left supraclavicular lymph node. About 3 cm in size CARDIOVASCULAR: Regular rate and rhythm. RESPIRATORY: No accessory muscle use. Clear to auscultation. Breath sounds equal bilaterally. GASTROINTESTINAL: Abdomen soft, non-tender, nondistended. MUSCULOSKELETAL: Extremities without clubbing, cyanosis, or edema. No obvious deformities. NEUROLOGICAL: Awake and alert. No obvious cranial nerve deficits. Motor grossly within normal limits. Five out of 5 muscle strength in the arms and legs. Normal speech. PSYCHIATRIC: Appropriate mood and affect; insight and judgment normal. Laboratory Laboratory Tests Test 10/18/16 05:25 White Blood Count 14.6 Red Blood Count 4.33 Hemoglobin 13.6 Hematocrit 39.8 Mean Corpuscular Volume 91.9 Mean Corpuscular Hemoglobin 31.4 Mean Corpuscular Hemoglobin 34.1 Concent Red Cell Distribution Width 16.4 Platelet Count 150 Mean Platelet Volume 8.6 Prothrombin Time 20.3 Prothromb Time International 1.8 Ratio Sodium Level 139 Potassium Level 4.1 Chloride Level 101 Carbon Dioxide Level 21.6 Anion Gap 16 Blood Urea Nitrogen 88 Creatinine 1.96 Estimat Glomerular Filtration 36 Rate Random Glucose 75 Calcium Level 8.4 Iron Level 69 Total Iron Binding Capacity 126 Percent Iron Saturation 54.8 Ferritin 906 Total Bilirubin 12.0 Aspartate Amino Transf 294 (AST/SGOT) Alanine Aminotransferase 92 (ALT/SGPT) Alkaline Phosphatase 792 Total Protein 5.7 Albumin 1.7 Date/Time Procedure Status Source Growth 10/17/16 15:50 Gram Stain - Final Resulted Fluid Peritoneal Fluid 10/17/16 15:50 Body Fluid Culture - Preliminary Resulted Fluid Peritoneal Fluid NO GROWTH IN 24 HOURS. Result Diagram: 10/18/16 0525 10/18/16 0525 Imaging Last Impressions Cholangiopancreatography MRI 10/18/16 0000 Signed Impressions: Service Date/Time: Tuesday, October 18, 2016 20:48 - CONCLUSION: 1. Multiple enhancing lesions throughout the liver characteristic for diffuse liver metastatic disease. 2. No evidence of gallstones or biliary tract obstruction. 3. There is thickening of the gallbladder wall suggestive of chronic gallbladder disease. 4. There is diffuse para-aortic adenopathy suspicious for neoplastic disease. 5. There is ascites in the upper abdomen. Zhou Alejandra MD Brain MRI 10/18/16 0000 Signed Impressions: Service Date/Time: Tuesday, October 18, 2016 11:45 - CONCLUSION: 1. Negative examination. Phi Anne MD Cyst Biopsy Asp-Paracentesis US 10/17/16 0000 Signed Impressions: Service Date/Time: Monday, October 17, 2016 08:42 - CONCLUSION: Uncomplicated ultrasound guided paracentesis. Ten Loyola MD Chest X-Ray 10/16/16 1157 Signed Impressions: Service Date/Time: Saturday, October 16, 2016 12:48 - CONCLUSION: Mild streaky opacity at both lung bases with no focal consolidation. This may represent atelectasis and/or scarring. Jayson Fernandez MD Chest CT 10/16/16 0000 Signed Impressions: Service Date/Time: Sunday, October 16, 2016 21:19 - CONCLUSION: 1. Minimal bibasilar consolidation in a somewhat linear configuration could be minimal infiltrate versus atelectasis. 2. Benign-appearing nodules right lung. Followup CT chest in 6-12 months. 3. Abdominal ascites. Isaak Jo MD Abdomen/Pelvis CT 10/16/16 0000 Signed Impressions: Service Date/Time: Sunday, October 16, 2016 15:31 - CONCLUSION: 1. The liver is enlarged and inhomogeneous with several ill-defined low attenuation masslike areas which are nonspecific but concerning for metastatic disease especially given the adenopathy. The liver margin is mildly lobular and this could indicate cirrhosis. 2. Retroperitoneal adenopathy. 3. Moderate amount of ascitic fluid. 4. Nonspecific, nonobstructive bowel gas pattern most consistent with a mild ileus. 5. Mild diverticulosis. 6. Consolidation in both lung bases with air bronchograms. Jayson Fernandez MD Assessment and Plan Assessment and Plan 56-year-old male with a past medical history of HIV in need of a left supraclavicular lymph node biopsy Plan for lymph node biopsy in OR on Tuesday afternoon Okay to resume diet and nothing by mouth after midnight on Tuesday Hold anticoagulation after Tuesday evening Obtain consents Attending Statement NOTE FOR SURGICAL ATTENDING, DR. PRESTON SOMMER I agree with above assessment and plan. Patient examined Patient has 2 cm lymph node in the left side of his neck Plan surgical excision for diagnosis The exam, history, and the medical decision-making described in the above note were completed with the assistance of the mid-level provider. I reviewed and agree with the findings presented. I attest that I had a [id number] encounter with the patient on the same day, and personally performed and documented my assessment and findings in the medical record. The following services were provided during this hospital visit: Chart data review, vital sign assessments/reviewing monitor data Review of consultations notes if present. Medication orders/review and/or management Ordering and/or reviewing lab tests Ordering and/or interpreting/reviewing x-rays and/or diagnostic studies Care of the patient and discussion of the patient with the care team Documentation time To help prompt me to consider important information that might be impacting today's encounter and assessment, information from prior notes written by myself or my colleagues may have been "brought forward/copy and pasted" into today's note. Stephanie Rinaldi Oct 18, 2016 16:04 Preston Sommer MD Oct 20, 2016 14:35
[2016-10-18 16:13] LABS: BLOOD, URINE NEG (NEG); COMMENT (UR) CULT NOT INDICATED; CULTURE IF INDICATED CULT NOT INDICATED; GLUCOSE,URINE NEG (NEG); GRANULAR CAST, URINE 5 /lpf; HYALINE CAST, URINE 18 /lpf (RARE); KETONE, URINE NEG (NEG); MUCUS URINE FEW /lpf (OCC); NITRITE,URINE NEG (NEG); SQUAMOUS EPITHELIAL CELL URINE <1 /hpf (0-5); URINE COLOR DARK-YELLOW (YELLW/STRAW)
[2016-10-18] MEDS ORDERED: GADOBENATE DIM PF 529 MG/ML 5 ML VIAL (for RAD MRI) IV ONE (21:35)
--- NOTE | 2016-10-18 21:59 | RADRPT ---
EXAM DATE/TIME: 10/18/2016 20:48 [facility] COMPARISON: CT ABDOMEN & PELVIS W/O CONTRAST, October 16, 2016, 15:31. INDICATIONS : Obstruction. Evaluate for liver mass. CONTRAST: 19 cc Multihance (gadobenate) IV MEDICAL HISTORY : Hypertension. SURGICAL HISTORY : None. ENCOUNTER: Subsequent ACUITY: 3 day PAIN SCORE: 5/10 LOCATION: ABDOMEN TECHNIQUE: Multiplanar, multisequence magnetic resonance imaging of the abdomen was performed. High-resolution 3D dataset was utilized to reconstruct maximum-intensity projection (MIP) images. FINDINGS: INTRAHEPATIC BILE DUCTS: Within normal limits. No significant anatomical variant is present. EXTRAHEPATIC BILE DUCTS: The common bile duct measures 3 mm No stone or filling defect is identified. No distal obstructing ma ss is visualized. GALLBLADDER: No definite gallstones. There is some thickening of the gallbladder wall. LIVER: Liver is diffusely heterogeneous and there are multiple enhancing mass lesions scattered throughout t he entire liver. These measure anywhere from 5 mm to 2 cm. PANCREAS: The main pancreatic duct is normal in size. There is no significant anatomical variant. Signal inte nsity is within normal limits. No mass is visualized. OTHER: There is diffuse para-aortic adenopathy. There is ascites in the abdomen. CONCLUSION: 1. Multiple enhancing lesions throughout the liver characteristic for diffuse liver metastatic diseas e. 2. No evidence of gallstones or biliary tract obstruction. 3. There is thickening of the gallbladder wall suggestive of chronic gallbladder disease. 4. There is diffuse para-aortic adenopathy suspicious for neoplastic disease. 5. There is ascites in the upper abdomen. Zhou Alejandra MD on October 18, 2016 at 21:49 Board Certified Radiologist. This report was verified electronically.
[2016-10-18] MEDS: TAMSULOSIN HCL 0.4 MG CAP PO SCH (22:14)
[2016-10-18] MEDS: AZITHROMYCIN INJ 500 MG in SODIUM CHLOR 0.9% 250 ML INJ 250 ML IV SCH (22:15)
[2016-10-18] MEDS: cefTRIAXone INJ 1,000 MG in SODIUM CHLORIDE 0.9% INJ 100 ML IV SCH (22:16)
[2016-10-19] VITALS (10 sets, daily range): BP systolic 86–106; BP diastolic 52–66; PULSE 78–82; RESP 16–22; TEMP 96.9–99.3; O2SAT 93–96
[2016-10-19 06:38] LABS: AUTOMATED NEUTROPHIL # 13.1 TH/MM3 (1.8-7.7); BASOPHIL % 0.3 % (0.0-2.0); HEMATOCRIT 40.9 % (39.0-51.0); HEMO FLAGS DIFF FINAL; LYMPH % 5.2 % (9.0-44.0); LYMPHOCYTE # 0.8 TH/MM3 (1.0-4.8); MEAN CELL VOLUME 91.8 FL (80.0-100.0); MEAN CORPUSCULAR HEMOGLOBIN 32.2 PG (27.0-34.0); MEAN CORPUSCULAR HGB CONC 35.1 % (32.0-36.0); MONO % 7.2 % (0.0-8.0); NEUT % 87.3 % (16.0-70.0); PLATELET COUNT 164 TH/MM3 (150-450); RED BLOOD COUNT 4.45 MIL/MM3 (4.50-5.90); RED CELL DISTRIBUTION WIDTH 16.7 % (11.6-17.2)
[2016-10-19 06:47] LABS: INTERNATIONAL NORMALIZED RATIO 1.9 RATIO; PROTHROMBIN TIME - PATIENT 21.4 SEC (9.8-11.6)
[2016-10-19 07:35] LABS: ALKALINE PHOSPHATASE 867 U/L (45-117); ALT (GPT) 120 U/L (12-78); ANION GAP 17 MEQ/L (5-15); AST (GOT) 425 U/L (15-37); BICARBONATE 20.2 MEQ/L (21.0-32.0); BLOOD UREA NITROGEN 114 MG/DL (7-18); CHLORIDE 98 MEQ/L (98-107); GLOMERULAR FILTRATION RATE 26 ML/MIN (>89); POTASSIUM 4.4 MEQ/L (3.5-5.1); SODIUM (NA) 135 MEQ/L (136-145)
[2016-10-19 07:43] LABS: TOTAL BILIRUBIN ADULT 14.7 MG/DL (0.2-1.0)
--- NOTE | 2016-10-19 08:01 | MB ---
cc: DERIK WINSLOW MD DATE OF CONSULTATION: 10/18/2016 REASON FOR CONSULTATION Elevated BUN and creatinine. HISTORY OF PRESENT ILLNESS This is a 56-year-old male with a past medical history of HIV disease on HAART, history of hypertension and hyperlipidemia, who was transferred from [facility] because of confusion, shortness of breath and hypoxemia. I was called to see the patient because of elevated BUN and creatinine. The patient denies any known history of renal disease. I also asked the sister who was sitting at the bedside. When he was admitted his creatinine was 2.4 and it is now 1.9. The patient has been getting MD HIV treatment and also is taking his antihypertensive medication. According to the sister he got a higher dose of lisinopril a few days before he was admitted to the hospital and he was feeling more weak and tired. The patient was recently diagnosed with opacity at the lung base with no consolidation. He had a CT scan of the abdomen and pelvis which showed that he has an enlarged liver and a mass-like area in the liver, possibly metastasis and likely cirrhosis. There some retroperitoneal lymphadenopathy. The patient was seen by the oncologist here and recommended to get an MRCP. Also serology was sent. They also recommended to get a biopsy of a lymph node and general surgery was consulted. The patient also had a diagnostic and therapeutic paracentesis done for which the pathology is pending. The patient was n.p.o. when I saw him because he was going for MRCP as per GI. The patient denies any nausea or vomiting. No dysuria or hematuria. No history of diarrhea. PAST MEDICAL HISTORY 1. HIV disease. 2. Hypertension. 3. Hyperlipidemia. PAST SURGICAL HISTORY None. REVIEW OF SYSTEMS Denies any history of fever. No sore throat. No headache. He had shortness of breath on admission which is better now. Denies any nausea or vomiting. No abdominal pain. No history of diarrhea. No dysuria or hematuria. Denies taking nonsteroidal anti-inflammatory drugs. He was on morphine at home for pain. SOCIAL HISTORY The patient has a history of homosexuality. He has no history of smoking or alcoholism. FAMILY HISTORY Noncontributory. ALLERGIES He has allergy to LEVAQUIN. MEDICATIONS Currently has been on: 1. Mucinex 600 mg b.i.d. 2. Protonix 40 mg once a day. 3. Valtrex one gram daily. 4. Aldactone 50 mg once a day. 5. Sustiva 600 mg q.h.s. 6. Flomax 0.4 mg q.h.s. 7. Symbicort inhalation. 8. Propranolol 10 mg q.12h. 9. Ceftriaxone one gram q.24h. 10.Azithromycin 500 mg p.o. q.24h. 11.DuoNeb nebulizer. 12.Zofran as needed. 13.Morphine and Roxicodone as needed. PHYSICAL EXAMINATION GENERAL: On examination the patient is awake and alert. He is not in acute distress. VITAL SIGNS: Blood pressure 94/52, temperature 97.1, oxygen saturation 92-93% on 1.5 liters nasal cannula. HEENT: Pupils are equal and reacting to light. Non-icteric sclera. Conjunctiva pale. NECK: Supple. JVD is not elevated. LUNGS: The patient has bilateral decreased air entry with scattered wheezing. HEART: S1, S2, regular rhythm. ABDOMEN: Distended, soft, lax. There is ascites. EXTREMITIES: He has 1+ edema. INVESTIGATIONS WBC count is 14.6, hemoglobin 13.6, platelet count 150, neutrophils 86.3%. Sodium 139, potassium 4.1, chloride 101, bicarb 21.6, BUN 88, creatinine 1.96, AST 294, ALT 92, total bilirubin 12.0, iron saturation 54, ferritin 906, total protein 5.7, albumin 1.7. Carcinoembryonic antigen is 5.4 and CA 19-9 is 83.1. Serology was done including DREW, antimitochondrial and CD4; they are all pending. Hepatitis serology was negative. Pathology is pending. Ascitic fluid shows WBC of 432 and RBC 1186. IMAGING STUDIES MRI of the brain was done which was negative. CT scan of the abdomen and pelvis was done without IV contrast and shows kidneys are normal is size and shape. There is no mass. No urinary bladder thickening. The liver is enlarged with ill-defined low attenuation mass-like areas, possible metastatic disease. Retroperitoneal lymphadenopathy. Consolidation in both lung bases. Mild diverticulosis. ASSESSMENT 1. Acute kidney injury. 2. Liver mass with lymphadenopathy. 3. Jaundice and elevated liver enzymes. 4. Ascites. 5. Encephalopathy. 6. . 7. HIV disease. PLAN The patient has acute kidney injury and has trace proteinuria. The differential diagnosis for acute kidney injury is acute tubular necrosis or interstitial nephritis or the possibility of underlying HIV nephropathy. I will send the urine sodium and also eosinophils. He is on spironolactone. Will continue that. Oncology and GI work-up in progress. Avoid any nephrotoxins. Follow the urine output and the BUN and creatinine. Thank you for the consultation. Derik Winslow MD AQJ/BT /8:00 PM /7:36 AM
--- NOTE | 2016-10-19 10:01 | HHI.PR ---
Subjective Subjective Notes DAILY PROGRESS NOTE FOR SURGICAL ATTENDING, DR. CUONG SOMMER Resting in bed Did not sleep well last night Sister at bedside Objective Vitals/I&O Vital Signs Date Time Temp Pulse Resp B/P Pulse Ox O2 Delivery O2 Flow Rate FiO2 10/19/16 09:16 97.3 79 20 96 10/18/16 12:43 Nasal Cannula 1.50 Labs Laboratory Tests Test 10/18/16 10/19/16 10/19/16 15:35 06:10 06:16 Urine Color DARK-YELLOW Urine Turbidity HAZY Urine pH 5.0 Urine Specific Maple 1.018 Urine Protein TRACE Urine Glucose (UA) NEG Urine Ketones NEG Urine Occult Blood NEG Urine Nitrite NEG Urine Bilirubin LARGE Urine Urobilinogen LESS THAN 2.0 Urine Leukocyte Esterase NEG Urine RBC 1 Urine WBC 4 Urine Squamous Epithelial <1 Cells Urine Hyaline Casts 18 Urine Granular Casts 5 Urine Mucus FEW Microscopic Urinalysis Comment CULT NOT INDICATED Urine Eosinophils NONE SEEN Urine Random Sodium 7 Prothrombin Time 21.4 Prothromb Time International 1.9 Ratio White Blood Count 15.0 Red Blood Count 4.45 Hemoglobin 14.3 Hematocrit 40.9 Mean Corpuscular Volume 91.8 Mean Corpuscular Hemoglobin 32.2 Mean Corpuscular Hemoglobin 35.1 Concent Red Cell Distribution Width 16.7 Platelet Count 164 Mean Platelet Volume 9.3 Neutrophils (%) (Auto) 87.3 Lymphocytes (%) (Auto) 5.2 Monocytes (%) (Auto) 7.2 Eosinophils (%) (Auto) 0.0 Basophils (%) (Auto) 0.3 Neutrophils # (Auto) 13.1 Lymphocytes # (Auto) 0.8 Monocytes # (Auto) 1.1 Eosinophils # (Auto) 0.0 Basophils # (Auto) 0.0 CBC Comment DIFF FINAL Differential Comment Sodium Level 135 Potassium Level 4.4 Chloride Level 98 Carbon Dioxide Level 20.2 Anion Gap 17 Blood Urea Nitrogen 114 Creatinine 2.63 Estimat Glomerular Filtration 26 Rate Random Glucose 70 Calcium Level 7.9 Total Bilirubin 14.7 Aspartate Amino Transf 425 (AST/SGOT) Alanine Aminotransferase 120 (ALT/SGPT) Alkaline Phosphatase 867 Total Protein 5.6 Albumin 1.6 Date/Time Procedure Status Source Growth 10/17/16 15:50 Gram Stain - Final Resulted Fluid Peritoneal Fluid 10/17/16 15:50 Body Fluid Culture - Preliminary Resulted Fluid Peritoneal Fluid NO GROWTH IN 48 HOURS. Cardiovascular: Regular Lungs: Clear Abdomen: Non-distended, Non-tender Narrative Exam LEFT supraclavicular palpable LN A/P Assessment and Plan 56 year old male with PMHx of HIV now with multiple enlarged LN -Plan for bx of LEFT supraclavicular LN tomorrow with Dr. Sommer -Obtain consents -Regular diet today; NPO after MN Attending Statement NOTE FOR SURGICAL ATTENDING, DR. CUONG SOMMER I agree with above assessment and plan. The following services were provided during this hospital visit: Chart data review, vital sign assessments/reviewing monitor data Review of consultations notes if present. Medication orders/review and/or management Ordering and/or reviewing lab tests Ordering and/or interpreting/reviewing x-rays and/or diagnostic studies Care of the patient and discussion of the patient with the care team Documentation time To help prompt me to consider important information that might be impacting today's encounter and assessment, information from prior notes written by myself or my colleagues may have been "brought forward/copy and pasted" into today's note. Stephanie Rinaldi Oct 19, 2016 10:01 Cuong Sommer MD Oct 20, 2016 14:38
[2016-10-19] MEDS: LACTULOSE SYRUP 20 GM/30 ML CUP PO SCH ×4 (10:12→20:40)
[2016-10-19] MEDS: BUDESONIDE-FORMOTEROL 160/4.5 MCG INHALER INH SCH ×2 (10:12→20:36)
[2016-10-19] MEDS: valACYclovir HCL 500 MG TAB PO SCH (10:13)
[2016-10-19] MEDS: guaiFENesin E.R. 600 MG TAB PO SCH ×2 (10:13→20:40)
[2016-10-19] MEDS: SPIRONOLACTONE 50 MG TAB PO SCH (10:15)
[2016-10-19] MEDS: SODIUM CHLORIDE 0.9% FLUSH 5 ML FLUSH FLUSH SCH ×2 (10:16→20:36)
[2016-10-19] MEDS: TENOFOVIR ALAFENAMIDE PO SCH (10:16)
[2016-10-19] MEDS: PROPRANOLOL HCL 10 MG TAB PO SCH ×2 (10:16→20:39)
[2016-10-19] MEDS: EMTRICITABINE PO SCH (10:16)
[2016-10-19] MEDS ORDERED: PHYTONADIONE 5 MG TAB PO ONE (11:45)
--- NOTE | 2016-10-19 11:56 | PD.ONC.PN ---
Subjective Subjective Remarks Afebrile overnight. patient says "I feel better today." His sister is at the bedside. He is still confused. Denies pain. Objective Data Date Time Temp Pulse Resp B/P Pulse Ox O2 Delivery O2 Flow Rate FiO2 10/19/16 09:16 97.3 79 20 96 10/19/16 05:33 97.4 82 16 106/66 93 10/19/16 02:17 92/61 10/19/16 01:03 97.3 78 18 86/54 95 10/18/16 20:10 97.7 81 18 92/63 94 10/18/16 20:00 81 10/18/16 16:00 97.1 78 16 94/52 92 10/18/16 14:42 80 10/18/16 12:43 93 Nasal Cannula 1.50 Result Diagram: 10/19/16 0616 10/19/16 0616 Laboratory Results Laboratory Tests Test 10/18/16 10/19/16 10/19/16 15:35 06:10 06:16 Urine Color DARK-YELLOW Urine Turbidity HAZY Urine pH 5.0 Urine Specific [place] 1.018 Urine Protein TRACE mg/dL Urine Glucose (UA) NEG mg/dL Urine Ketones NEG mg/dL Urine Occult Blood NEG Urine Nitrite NEG Urine Bilirubin LARGE Urine Urobilinogen LESS THAN 2.0 MG/DL Urine Leukocyte Esterase NEG Urine RBC 1 /hpf Urine WBC 4 /hpf Urine Squamous Epithelial <1 /hpf Cells Urine Hyaline Casts 18 /lpf Urine Granular Casts 5 /lpf Urine Mucus FEW /lpf Microscopic Urinalysis Comment CULT NOT INDICATED Urine Eosinophils NONE SEEN /HPF Urine Random Sodium 7 MEQ/L Prothrombin Time 21.4 SEC Prothromb Time International 1.9 RATIO Ratio White Blood Count 15.0 TH/MM3 Red Blood Count 4.45 MIL/MM3 Hemoglobin 14.3 GM/DL Hematocrit 40.9 % Mean Corpuscular Volume 91.8 FL Mean Corpuscular Hemoglobin 32.2 PG Mean Corpuscular Hemoglobin 35.1 % Concent Red Cell Distribution Width 16.7 % Platelet Count 164 TH/MM3 Mean Platelet Volume 9.3 FL Neutrophils (%) (Auto) 87.3 % Lymphocytes (%) (Auto) 5.2 % Monocytes (%) (Auto) 7.2 % Eosinophils (%) (Auto) 0.0 % Basophils (%) (Auto) 0.3 % Neutrophils # (Auto) 13.1 TH/MM3 Lymphocytes # (Auto) 0.8 TH/MM3 Monocytes # (Auto) 1.1 TH/MM3 Eosinophils # (Auto) 0.0 TH/MM3 Basophils # (Auto) 0.0 TH/MM3 CBC Comment DIFF FINAL Differential Comment Sodium Level 135 MEQ/L Potassium Level 4.4 MEQ/L Chloride Level 98 MEQ/L Carbon Dioxide Level 20.2 MEQ/L Anion Gap 17 MEQ/L Blood Urea Nitrogen 114 MG/DL Creatinine 2.63 MG/DL Estimat Glomerular Filtration 26 ML/MIN Rate Random Glucose 70 MG/DL Calcium Level 7.9 MG/DL Total Bilirubin 14.7 MG/DL Aspartate Amino Transf 425 U/L (AST/SGOT) Alanine Aminotransferase 120 U/L (ALT/SGPT) Alkaline Phosphatase 867 U/L Total Protein 5.6 GM/DL Albumin 1.6 GM/DL Culture Results Microbiology Date/Time Procedure Status Source Growth 10/17/16 15:50 Gram Stain - Final Resulted Fluid Peritoneal Fluid 10/17/16 15:50 Body Fluid Culture - Preliminary Resulted Fluid Peritoneal Fluid NO GROWTH IN 48 HOURS. Administered Medications Medications (Trade) Dose Ordered Sig/Elisa Route PRN Reason Start Time Stop Time Status Last Admin Dose Admin Budesonide/ Formoterol Fumarate (Symbicort 160-4.5 Inh) 2 puff Q12HR INH 10/16/16 21:00 10/19/16 10:12 Guaifenesin 600 mg 600 mg BID PO 10/16/16 21:00 10/19/16 10:13 Ceftriaxone Sodium 1000 mg/ Sodium Chloride 100 ml @ 200 mls/hr Q24H IV 10/16/16 20:00 10/18/16 22:16 Azithromycin/ Sodium Chloride (Zithromax Inj/ NS 250 ml Inj) 250 ml @ 250 mls/hr Q24H IV 10/16/16 21:00 10/18/16 22:15 Lactulose (Lactulose Liq) 30 ml QID PO 10/16/16 21:00 10/19/16 10:12 IV Flush (NS Flush) 2 ml BID FLUSH 10/16/16 21:00 10/19/16 10:16 Oxycodone HCl (Roxicodone) 5 mg Q4H PRN PO PAIN SCALE 3 TO 5 10/16/16 19:30 10/17/16 18:43 Efavirenz (Sustiva) 600 mg HS PO 10/16/16 21:00 10/18/16 21:00 Tamsulosin HCl (Flomax) 0.4 mg HS PO 10/16/16 21:00 10/18/16 22:14 Valacyclovir HCl (Valtrex) 1,000 mg DAILY PO 10/17/16 09:00 10/19/16 10:13 Propranolol HCl (Inderal) 10 mg Q12HR PO 10/16/16 21:15 10/18/16 22:16 Spironolactone (Aldactone) 50 mg DAILY PO 10/17/16 09:00 10/18/16 10:26 Objective Remarks GENERAL: Jaundiced male, sitting up in bed. SKIN: Warm and dry. HEAD: Normocephalic. EYES: No injection or drainage. NECK: Supple, trachea midline. CARDIOVASCULAR: Regular rate and rhythm RESPIRATORY: Breath sounds equal bilaterally. No accessory muscle use. GASTROINTESTINAL: Abdomen soft, non-tender, nondistended. EXTREMITIES: No cyanosis MUSCULOSKELETAL: Adequate muscle tone. NEUROLOGICAL: awake, normal speech. oriented to self and place. Assessment/Plan Problem List: (1) Lymphadenopathy Status: Acute Plan: 10/19: plans for LN biopsy tomorrow --Left cervical, left supraclavicular colby hepatis and retroperitoneal lymphadenopathy. consistent with non-Hodgkin's lymphoma until proven otherwise. (2) Liver masses Status: Acute Plan: 10/19: MRCP showed diffuse liver metastatic disease. d/w patient and sister findings of MRCP. reviewed increasing bilirubin. discussed possibility of waiting on LN biopsy for diagnosis. --CT ab/pelvis shows liver is enlarged and inhomogeneous with several ill- defined low attenuation mass-like areas which are nonspecific but concerning for metastatic disease, especially given the lymphadenopathy. The liver margin is mildly lobular and could indicate cirrhosis. +retroperitoneal lymphadenopathy. --CT chest minimal bibasilar consolidation in a somewhat linear configuration which could be minimal infiltrate versus atelectasis. --s/p diagnostic and therapeutic paracentesis by interventional radiology, pathology pending (3) Coagulopathy Status: Acute Plan: --due to liver cirrhosis --start PO Vitamin K 5mg daily Assessment 56y/o male with multiple liver masses. h/o HIV positive for the last 7 years. Homosexual. Hypertension. Hypercholesterolemia. History of shingles. Benign prostate hypertrophy. Attending Statement no new c/o MRCP = multiple liver lesions NO ERCP is indicated. for LN bx tomorrow. The exam, history, and the medical decision-making described in the above note were completed with the assistance of the mid-level provider. I reviewed and agree with the findings presented. I attest that I had a [id number] encounter with the patient on the same day, and personally performed and documented my assessment and findings in the medical record. Samantha Hampton Oct 19, 2016 11:56 Kathy Reeves MD Oct 19, 2016 23:29
--- NOTE | 2016-10-19 14:43 | HHI.PR ---
Subjective Remarks f/u for liver mets, renal failure and elevated liver enzymes. patient has no complaints. He stated his sister left and she will be back in an hour. Denied any abdominal pain, N/V. no acute events overnight. Objective Vitals Vital Signs Date Time Temp Pulse Resp B/P Pulse Ox O2 Delivery O2 Flow Rate FiO2 10/19/16 12:30 96.9 78 20 91/53 95 10/19/16 10:26 81 10/19/16 09:16 97.3 79 20 96 10/19/16 08:55 93 Nasal Cannula 3.00 10/19/16 05:33 97.4 82 16 106/66 93 10/19/16 02:17 92/61 10/19/16 01:03 97.3 78 18 86/54 95 10/18/16 20:10 97.7 81 18 92/63 94 10/18/16 20:00 81 10/18/16 16:00 97.1 78 16 94/52 92 10/18/16 14:42 80 I/O 10/18/16 10/18/16 10/18/16 10/19/16 10/19/16 10/19/16 07:00 15:00 23:00 07:00 15:00 23:00 Intake Total 360 ml 325 ml Balance 360 ml 325 ml Intake Oral 360 ml IV Total 325 ml # Bowel Movements 3 Result Diagram: 10/19/16 0616 10/19/16 0616 Imaging Last Impressions Cholangiopancreatography MRI 10/18/16 0000 Signed Impressions: Service Date/Time: Tuesday, October 18, 2016 20:48 - CONCLUSION: 1. Multiple enhancing lesions throughout the liver characteristic for diffuse liver metastatic disease. 2. No evidence of gallstones or biliary tract obstruction. 3. There is thickening of the gallbladder wall suggestive of chronic gallbladder disease. 4. There is diffuse para-aortic adenopathy suspicious for neoplastic disease. 5. There is ascites in the upper abdomen. Zhou Alejandra MD Brain MRI 10/18/16 0000 Signed Impressions: Service Date/Time: Tuesday, October 18, 2016 11:45 - CONCLUSION: 1. Negative examination. Phi Anne MD Cyst Biopsy Asp-Paracentesis US 10/17/16 0000 Signed Impressions: Service Date/Time: Monday, October 17, 2016 08:42 - CONCLUSION: Uncomplicated ultrasound guided paracentesis. Ten Loyola MD Chest X-Ray 10/16/16 1157 Signed Impressions: Service Date/Time: Sunday, October 16, 2016 12:48 - CONCLUSION: Mild streaky opacity at both lung bases with no focal consolidation. This may represent atelectasis and/or scarring. Jayson Fernandez MD Chest CT 10/16/16 0000 Signed Impressions: Service Date/Time: Sunday, October 16, 2016 21:19 - CONCLUSION: 1. Minimal bibasilar consolidation in a somewhat linear configuration could be minimal infiltrate versus atelectasis. 2. Benign-appearing nodules right lung. Followup CT chest in 6-12 months. 3. Abdominal ascites. Isaak Jo MD Abdomen/Pelvis CT 10/16/16 0000 Signed Impressions: Service Date/Time: Sunday, October 16, 2016 15:31 - CONCLUSION: 1. The liver is enlarged and inhomogeneous with several ill-defined low attenuation masslike areas which are nonspecific but concerning for metastatic disease especially given the adenopathy. The liver margin is mildly lobular and this could indicate cirrhosis. 2. Retroperitoneal adenopathy. 3. Moderate amount of ascitic fluid. 4. Nonspecific, nonobstructive bowel gas pattern most consistent with a mild ileus. 5. Mild diverticulosis. 6. Consolidation in both lung bases with air bronchograms. Jayson Fernandez MD Objective Remarks GENERAL: in NAD sclera icterus CARDIOVASCULAR: Regular rate and rhythm without murmurs, gallops, or rubs. RESPIRATORY: Breath sounds equal bilaterally. No accessory muscle use. GASTROINTESTINAL: Abdomen soft, non-tender, nondistended. no TTP. MUSCULOSKELETAL: No cyanosis, or edema. BACK: Nontender without obvious deformity. No CVA tenderness. Medications and IVs Current Medications IV Flush (NS Flush) 2 ml UNSCH PRN IVF FLUSH AFTER USING IV ACCESS; Start 10/16 at 12:00 Pantoprazole Sodium (Protonix Inj) 40 mg ONCE ONCE IV PUSH Last administered on 10/16/16 12:09; Start 10/16/16 at 12:15; Stop 10/16/16 at 12:16; Status DC Morphine Sulfate (Morphine Inj) 4 mg ONCE ONCE IV PUSH Last administered on 12:28; Start 10/16/16 at 12:30; Stop 10/16/16 at 12:31; Status DC Lactulose (Lactulose Liq) 30 ml ONCE ONCE PO Last administered on 10/16/16 17 :43; Start 10/16/16 at 16:45; Stop 10/16/16 at 16:46; Status DC Albuterol/ Ipratropium (Duoneb Neb) 1 ampule Q4HR NEB PRN NEB SOB/WHEEZING; Start 10/16/16 at 19:30 Budesonide/ Formoterol Fumarate (Symbicort 160-4.5 Inh) 2 puff Q12HR INH Last administered on 10/19/16 10:12; Start 10/16/16 at 21:00 Guaifenesin 600 mg 600 mg BID PO Last administered on 10/19/16 10:13; Start at 21:00 Ceftriaxone Sodium 1000 mg/ Sodium Chloride 100 ml @ 200 mls/hr Q24H IV Last administered on 10/18/16 22:16; Start 10/16/16 at 20:00 Azithromycin/ Sodium Chloride (Zithromax Inj/ NS 250 ml Inj) 250 ml @ 250 mls/ hr Q24H IV Last administered on 10/18/16 22:15; Start 10/16/16 at 21:00 Lactulose (Lactulose Liq) 30 ml QID PO Last administered on 10/19/16 10:12; Start 10/16/16 at 21:00 IV Flush (NS Flush) 2 ml UNSCH PRN FLUSH FLUSH AFTER USING IV ACCESS; Start at 19:30 IV Flush (NS Flush) 2 ml BID FLUSH Last administered on 10/19/16 10:16; Start 10/16/16 at 21:00 Ondansetron HCl (Zofran Inj) 4 mg Q6H PRN IVP NAUSEA OR VOMITING; Start at 19:30 Bisacodyl (Dulcolax Supp) 10 mg DAILY PRN DE CONSTIPATION; Start 10/16/16 at 19 :30 Morphine Sulfate (Morphine Inj) 2 mg Q3H PRN IV Pain 6-10; Start 10/16/16 at 19 :30 Oxycodone HCl (Roxicodone) 5 mg Q4H PRN PO PAIN SCALE 3 TO 5 Last administered on 10/17/16 18:43; Start 10/16/16 at 19:30 Efavirenz (Sustiva) 600 mg HS PO Last administered on 10/18/16 21:00; Start at 21:00 Tamsulosin HCl (Flomax) 0.4 mg HS PO Last administered on 10/18/16 22:14; Start 10/16/16 at 21:00 Valacyclovir HCl (Valtrex) 1,000 mg DAILY PO Last administered on 10/19/16 10: 13; Start 10/17/16 at 09:00 Patient Own Medication PT OWN MED: DESCOVY (EMTRICITABINE-TENO... DAILY PO ; Start 10/17/16 at 09:00 Propranolol HCl (Inderal) 10 mg Q12HR PO Last administered on 10/18/16 22:16; Start 10/16/16 at 21:15 Spironolactone (Aldactone) 50 mg DAILY PO Last administered on 10/18/16 10:26 ; Start 10/17/16 at 09:00 Gadobenate Dimeglumine (Multihance Pf Inj) 19 ml STK-MED ONCE IV Last administered on 10/18/16 12:00; Start 10/18/16 at 12:00; Stop 10/18/16 at 12:01 ; Status DC Gadobenate Dimeglumine (Multihance Pf Inj) 19 ml STK-MED ONCE IV Last administered on 10/18/16 21:35; Start 10/18/16 at 21:35; Stop 10/18/16 at 21:36 ; Status DC Phytonadione (Mephyton) 5 mg DAILY PO ; Start 10/20/16 at 09:00 Phytonadione (Mephyton) 5 mg ONCE ONCE PO ; Start 10/19/16 at 11:45; Stop 10/19 at 12:20; Status DC A/P Problem List: (1) Encephalopathy ICD Code: G93.40 Status: Acute (2) Liver masses ICD Code: R16.0 Status: Acute (3) Ascites ICD Code: R18.8 Status: Acute (4) Coagulopathy ICD Code: D68.9 Status: Acute (5) PNA (pneumonia) ICD Code: J18.9 Status: Acute (6) Hypoxia ICD Code: R09.02 Status: Acute (7) HIV (human immunodeficiency virus infection) ICD Code: Z21 Status: Acute (8) SENG (acute kidney injury) ICD Code: N17.9 Status: Acute Assessment and Plan Hepatic Encephalopathy -Secondary to new onset cirrhosis/liver masses. Intermittent confusion. Ammonia elevated at 48, s/p Lactulose - will continue w/ Lactulose qid. Liver Masses - newly diagnosed liver masses via outpatient US approx 1 wk ago per patient, CT Abd/Pelvis w/ enlarged liver and several masslike areas concerning for metastatic disease, cirrhosis, retroperitoneal adenopathy and moderate ascites - Oncology consulted and appreciate recommendation. patient will cervical lymph node biopsy by surgery tomorrow. -MRCP showed by multiple enhancing lesions throughout the liver characteristic for diffuse liver metastatic disease, there is thickening of the gallbladder wall suggestive of chronic gallbladder, there is diffuse para-aortic adenopathy suspicious for neoplastic disease and here is ascites in the upper abdomen. -LFT increasing but most likely due to mets. ARF -improved then worsening and continues to worsens. -media operator on board and is working up. -continue to monitor. strict i/o. -avoid nephrotoxins. Ascites -secondary to above. New Onset. CT Abd/Pelvis w/ moderate ascites -on Propranolol and Aldactone-caution w/ renal insufficiency. -GI consulted. pending culture. Elevated LFTs -continues increasing. -no previous labs for comparison, AST 245, ALT 90, ALP 920, Total Bili 8.8, secondary to above findings. -due to liver mets. -hepatitis panel negative. Coagulopathy - secondary to cirrhosis/liver masses, INR 1.8 now, no active bleeding at this time. -continue to monitor -dental receptionist giving vitamin K. PNA - CXR w/ bilateral basilar streaky opacities, CT Abd/Pelvis w/ bilateral consolidations at bases w/ air bronchograms -continue IV Rocephin/Zithro, DuoNeb prn Hypoxia - Transient, resolved. Multifactorial-orthopnea due to ascites and PNA. O2 sat currently 98% on 5L NC. HIV - Reports CD4 is "real good". Follows w/ Dr. Evans as outpatient, recent medication change in Aug 2016 during last visit, reports compliance w/ meds. Not on prophylaxis per pt. -pending CD4. DVT Prophylaxis: Pharmacologic contraindication secondary to coagulopathy. Discharge Planning patient continues to be confused intermittently. LFTs and ARF has worsen so need to continue with hospitalization. Plan for biopsy tomorrow. Lois Meyers MD Oct 19, 2016 14:43
--- NOTE | 2016-10-19 19:47 | HHI.NPPN ---
Subjective Renal Failure: Acute History of Present Illness 56-year-old male with a past medical history of HIV disease on HAART, history of hypertension and hyperlipidemia, who was transferred from [facility] because of confusion, shortness of breath and hypoxemia. I was called to see the patient because of elevated BUN and creatinine. Additional Remarks Patient is alert, no SOB, eating well. Review of Systems General Constitutional: Fatigue Cardiovascular Cardiac: [place] Objective Data Data 10/18/16 10/19/16 19:00 07:00 Intake Total 360 ml 325 ml Balance 360 ml 325 ml Intake Oral 360 ml IV Total 325 ml # Bowel Movements 3 Vital Signs Date Time Temp Pulse Resp B/P Pulse Ox O2 Delivery O2 Flow Rate FiO2 10/19/16 16:30 99.3 81 20 94/52 95 10/19/16 12:30 96.9 78 20 91/53 95 10/19/16 10:26 81 10/19/16 09:16 97.3 79 20 96 10/19/16 09:00 88/55 10/19/16 08:55 93 Nasal Cannula 3.00 10/19/16 05:33 97.4 82 16 106/66 93 10/19/16 02:17 92/61 10/19/16 01:03 97.3 78 18 86/54 95 10/18/16 20:10 97.7 81 18 92/63 94 10/18/16 20:00 81 -: 10/19/16 0616 10/19/16 0616 Physical Exam General Appearance: No Acute Distress, Comfortable Eyes Eye Exam: Pupils Equal Throat Throat Exam: Oral Mucosa [place] & Moist Pulmonary Resp Exam: Breath Sounds Equal, No Distress, Decreased Bases Cardiology CV Exam: Regular, Normal Sinus Rhythm Gastrointestinal/Abdomen GI Exam: Soft, Non-Tender, Bowel Sounds Present, Non-Distended Extremeties Extremities Exam: Trace Edema Neurologic Neuro Exam: Alert, Awake, Oriented Psychiatric Psych Exam: Appropriate Responses Assessment/Plan Assessment Summary: SENG/Acute Renal Failure Problem List: (1) Ascites (2) HIV (human immunodeficiency virus infection) (3) Liver masses (4) PNA (pneumonia) (5) Lymphadenopathy (6) SENG (acute kidney injury) Plan Patient has low urine Na. Differential for renal failure will be ATN, Possible Hepato renal or HIV Nephropathy. Non oliguric. Creatinine is still increasing. Has Paracentesis done. Will have LN Biopsy tomorrow. Oncology following. Avoid Nephrotoxins, Follow urine out put and BMP. Balwinder Jade MD Oct 19, 2016 19:47
[2016-10-19] MEDS: cefTRIAXone INJ 1,000 MG in SODIUM CHLORIDE 0.9% INJ 100 ML IV SCH (20:35)
[2016-10-19] MEDS: AZITHROMYCIN INJ 500 MG in SODIUM CHLOR 0.9% 250 ML INJ 250 ML IV SCH (20:36)
[2016-10-19] MEDS: TAMSULOSIN HCL 0.4 MG CAP PO SCH (20:40)
[2016-10-20] VITALS: BP 155/80; PULSE 81; RESP 22; TEMP 97.8; O2SAT 94
[2016-10-20 04:00] VITALS: BP 92/58; PULSE 81; RESP 22; TEMP 98; O2SAT 93
[2016-10-20 07:50] VITALS: BP 55/31
[2016-10-20 08:10] VITALS: BP 77/41
[2016-10-20 08:12] LABS: AUTOMATED NEUTROPHIL # 14.8 TH/MM3 (1.8-7.7); BASOPHIL % 0.2 % (0.0-2.0); HEMATOCRIT 39.8 % (39.0-51.0); LYMPH % 4.2 % (9.0-44.0); LYMPHOCYTE # 0.7 TH/MM3 (1.0-4.8); MEAN CELL VOLUME 93.4 FL (80.0-100.0); MEAN CORPUSCULAR HEMOGLOBIN 31.3 PG (27.0-34.0); MEAN CORPUSCULAR HGB CONC 33.5 % (32.0-36.0); MONO % 6.4 % (0.0-8.0); NEUT % 89.2 % (16.0-70.0); PLATELET COUNT 146 TH/MM3 (150-450); RED BLOOD COUNT 4.26 MIL/MM3 (4.50-5.90); RED CELL DISTRIBUTION WIDTH 17.5 % (11.6-17.2); WHITE BLOOD COUNT 16.6 TH/MM3 (4.0-11.0)
[2016-10-20 08:15] LABS: HEMO FLAGS AUTO DIFF
[2016-10-20 08:19] LABS: APTT (PATIENT) 52.2 SEC (24.3-30.1); PROTHROMBIN TIME - PATIENT 22.7 SEC (9.8-11.6)
[2016-10-20] MEDS ORDERED: SODIUM CHLORID 0.9% 500 ML INJ 500 ML IV ONE ×2 (08:30→17:15)
[2016-10-20] MEDS: PROPRANOLOL HCL 10 MG TAB PO SCH ×2 (09:00→09:56)
[2016-10-20] MEDS: valACYclovir HCL 500 MG TAB PO SCH (09:00)
[2016-10-20 09:08] LABS: BICARBONATE 15.9 MEQ/L (21.0-32.0); INDIRECT BILIRUBIN 2.7 MG/DL (0.0-0.8); POTASSIUM 4.6 MEQ/L (3.5-5.1)
[2016-10-20 09:11] LABS: TOTAL BILIRUBIN ADULT 15.9 MG/DL (0.2-1.0)
[2016-10-20] MEDS: ALBUMIN HUMAN 25% 12.5 GM/50 ML BAGP IV SCH ×2 (09:49→20:35)
[2016-10-20 09:56] LABS: SCAN/DIFF AUTO DIFF CONFIRMED
[2016-10-20] MEDS: SPIRONOLACTONE 50 MG TAB PO SCH (09:56)
[2016-10-20] MEDS: LACTULOSE SYRUP 20 GM/30 ML CUP PO SCH ×4 (09:56→21:00)
[2016-10-20] MEDS: guaiFENesin E.R. 600 MG TAB PO SCH (09:56)
[2016-10-20] MEDS: EMTRICITABINE PO SCH (09:59)
[2016-10-20] MEDS: TENOFOVIR ALAFENAMIDE PO SCH (09:59)
[2016-10-20] MEDS: SODIUM CHLORIDE 0.9% FLUSH 5 ML FLUSH FLUSH SCH ×2 (10:03→20:37)
[2016-10-20] MEDS: BUDESONIDE-FORMOTEROL 160/4.5 MCG INHALER INH SCH ×2 (10:03→20:37)
[2016-10-20] MEDS ORDERED: DEXTROSE 50% IN WATER 50 ML SYRINGE ONE (10:08)
[2016-10-20] MEDS: PHYTONADIONE 5 MG TAB PO SCH (10:20)
--- NOTE | 2016-10-20 10:20 | PD.ONC.PN ---
Subjective Subjective Remarks Afebrile overnight. Patient blood pressure was low this AM. He was NPO after midnight for procedures today and has been ordered D50 as well as a bolus of saline. He states he feels fine. He reiterates his desire to go home. Denies pain. Objective Data Date Time Temp Pulse Resp B/P Pulse Ox O2 Delivery O2 Flow Rate FiO2 10/20/16 08:10 77/41 10/20/16 07:50 55/31 10/20/16 04:00 98.0 81 22 92/58 93 10/20/16 00:00 97.8 81 22 155/80 94 10/19/16 20:00 79 10/19/16 20:00 98.0 82 22 106/57 94 10/19/16 16:30 99.3 81 20 94/52 95 10/19/16 12:30 96.9 78 20 91/53 95 10/19/16 10:26 81 10/20/16 10/20/16 10/20/16 07:00 15:00 23:00 Intake Total 120 ml Balance 120 ml Result Diagram: 10/20/16 0714 10/20/16713 Laboratory Results Laboratory Tests Test 10/20/16 07:14 White Blood Count 16.6 TH/MM3 Red Blood Count 4.26 MIL/MM3 Hemoglobin 13.3 GM/DL Hematocrit 39.8 % Mean Corpuscular Volume 93.4 FL Mean Corpuscular Hemoglobin 31.3 PG Mean Corpuscular Hemoglobin 33.5 % Concent Red Cell Distribution Width 17.5 % Platelet Count 146 TH/MM3 Mean Platelet Volume 9.2 FL Neutrophils (%) (Auto) 89.2 % Lymphocytes (%) (Auto) 4.2 % Monocytes (%) (Auto) 6.4 % Eosinophils (%) (Auto) 0.0 % Basophils (%) (Auto) 0.2 % Neutrophils # (Auto) 14.8 TH/MM3 Lymphocytes # (Auto) 0.7 TH/MM3 Monocytes # (Auto) 1.1 TH/MM3 Eosinophils # (Auto) 0.0 TH/MM3 Basophils # (Auto) 0.0 TH/MM3 CBC Comment AUTO DIFF Differential Comment AUTO DIFF CONFIRMED Prothrombin Time 22.7 SEC Prothromb Time International 2.0 RATIO Ratio Activated Partial 52.2 SEC Thromboplast Time Sodium Level 135 MEQ/L Potassium Level 4.6 MEQ/L Chloride Level 99 MEQ/L Carbon Dioxide Level 15.9 MEQ/L Anion Gap 20 MEQ/L Blood Urea Nitrogen 141 MG/DL Creatinine 3.68 MG/DL Estimat Glomerular Filtration 17 ML/MIN Rate Random Glucose 49 MG/DL Calcium Level 7.7 MG/DL Total Bilirubin 15.9 MG/DL Direct Bilirubin 13.2 MG/DL Indirect Bilirubin 2.7 MG/DL Aspartate Amino Transf 488 U/L (AST/SGOT) Alanine Aminotransferase 137 U/L (ALT/SGPT) Alkaline Phosphatase 842 U/L Total Protein 5.2 GM/DL Albumin 1.7 GM/DL Culture Results Microbiology Date/Time Procedure Status Source Growth 10/17/16 15:50 Gram Stain - Final Complete Fluid Peritoneal Fluid 10/17/16 15:50 Body Fluid Culture - Final Complete Fluid Peritoneal Fluid NO GROWTH IN 72 HRS.--AEROBICALLY OR ... Administered Medications Medications (Trade) Dose Ordered Sig/Elisa Route PRN Reason Start Time Stop Time Status Last Admin Dose Admin Budesonide/ Formoterol Fumarate (Symbicort 160-4.5 Inh) 2 puff Q12HR INH 10/16/16 21:00 10/20/16 10:03 Guaifenesin 600 mg 600 mg BID PO 10/16/16 21:00 10/20/16 09:56 Ceftriaxone Sodium 1000 mg/ Sodium Chloride 100 ml @ 200 mls/hr Q24H IV 10/16/16 20:00 10/19/16 20:35 Azithromycin/ Sodium Chloride (Zithromax Inj/ NS 250 ml Inj) 250 ml @ 250 mls/hr Q24H IV 10/16/16 21:00 10/19/16 20:36 Lactulose (Lactulose Liq) 30 ml QID PO 10/16/16 21:00 10/20/16 09:56 IV Flush (NS Flush) 2 ml BID FLUSH 10/16/16 21:00 10/20/16 10:03 Oxycodone HCl (Roxicodone) 5 mg Q4H PRN PO PAIN SCALE 3 TO 5 10/16/16 19:30 10/17/16 18:43 Efavirenz (Sustiva) 600 mg HS PO 10/16/16 21:00 10/19/16 20:39 Tamsulosin HCl (Flomax) 0.4 mg HS PO 10/16/16 21:00 10/19/16 20:40 Valacyclovir HCl (Valtrex) 1,000 mg DAILY PO 10/17/16 09:00 10/20/16 09:00 Patient Own Medication PT OWN MED: DESCOVY (EMTRICITABINE-TENO... DAILY PO 10/17/16 09:00 10/20/16 09:59 Propranolol HCl (Inderal) 10 mg Q12HR PO 10/16/16 21:15 10/20/16 09:56 Spironolactone (Aldactone) 50 mg DAILY PO 10/17/16 09:00 10/20/16 09:56 Albumin Human (Albumin 25% Inj) 12.5 gm Q12H IV 10/20/16 09:00 10/20/16 09:49 Objective Remarks GENERAL: Chronically ill appearing male, lying in bed in nad. SKIN: Warm and dry. HEAD: Normocephalic. EYES: No injection or drainage. NECK: Supple, trachea midline. CARDIOVASCULAR: Regular rate and rhythm RESPIRATORY: Breath sounds equal bilaterally. No accessory muscle use. GASTROINTESTINAL: Abdomen soft, non-tender, nondistended. EXTREMITIES: No cyanosis MUSCULOSKELETAL: Adequate muscle tone. NEUROLOGICAL: awake, normal speech. oriented to self and place. Assessment/Plan Problem List: (1) Lymphadenopathy Status: Acute Plan: 10/20: LN biopsy this afternoon at 3PM. --Left cervical, left supraclavicular colby hepatis and retroperitoneal lymphadenopathy. consistent with non-Hodgkin's lymphoma until proven otherwise. (2) Liver masses Status: Acute Plan: 10/20: possible liver mass biopsy today --CT ab/pelvis shows liver is enlarged and inhomogeneous with several ill- defined low attenuation mass-like areas which are nonspecific but concerning for metastatic disease, especially given the lymphadenopathy. The liver margin is mildly lobular and could indicate cirrhosis. +retroperitoneal lymphadenopathy. --CT chest minimal bibasilar consolidation in a somewhat linear configuration which could be minimal infiltrate versus atelectasis. --s/p diagnostic and therapeutic paracentesis by interventional radiology, pathology pending (3) Coagulopathy Status: Acute Plan: --due to liver cirrhosis --on PO Vitamin K 5mg daily Assessment 56y/o male with multiple liver masses. h/o HIV positive for the last 7 years. Homosexual. Hypertension. Hypercholesterolemia. History of shingles. Benign prostate hypertrophy. Attending Statement no new c/o wants to go home. For LN and liver mass bx today. will follow. The exam, history, and the medical decision-making described in the above note were completed with the assistance of the mid-level provider. I reviewed and agree with the findings presented. I attest that I had a [id number] encounter with the patient on the same day, and personally performed and documented my assessment and findings in the medical record. Samantha Hampton Oct 20, 2016 10:20 Kathy Reeves MD Oct 20, 2016 18:37
[2016-10-20] MEDS ORDERED: DEXTROSE 50% IN WATER 50 ML VIAL(D50) IV PUSH ONE (10:30)
[2016-10-20] MEDS: DEXT 5%-NACL 0.9% 1000 ML INJ 1,000 ML IV SCH ×2 (11:14→20:37)
--- NOTE | 2016-10-20 11:30 | HHI.GIFU ---
Subjective Remarks Patient resting in bed. Complains of being thirsty and hungry. Denies any nausea, vomiting, abdominal pain. States she's having significant diarrhea with the lactulose. He cannot quantify the amount but reports that its more than 4 episodes per day. (Ghazal Crockett) Objective Vitals I&O Vital Signs Date Time Temp Pulse Resp B/P Pulse Ox O2 Delivery O2 Flow Rate FiO2 10/20/16 08:10 77/41 10/20/16 07:50 55/31 10/20/16 04:00 98.0 81 22 92/58 93 10/20/16 00:00 97.8 81 22 155/80 94 10/19/16 20:00 79 10/19/16 20:00 98.0 82 22 106/57 94 10/19/16 16:30 99.3 81 20 94/52 95 10/19/16 12:30 96.9 78 20 91/53 95 I/O 10/19/16 10/19/16 10/19/16 10/20/16 10/20/16 10/20/16 07:00 15:00 23:00 07:00 15:00 23:00 Intake Total 598 ml 120 ml Balance 598 ml 120 ml Intake Oral 240 ml 120 ml IV Total 358 ml # Voids 2 5 # Bowel Movements 1 4 Laboratory Laboratory Tests Test 10/20/16 07:14 White Blood Count 16.6 Red Blood Count 4.26 Hemoglobin 13.3 Hematocrit 39.8 Mean Corpuscular Volume 93.4 Mean Corpuscular Hemoglobin 31.3 Mean Corpuscular Hemoglobin 33.5 Concent Red Cell Distribution Width 17.5 Platelet Count 146 Mean Platelet Volume 9.2 Neutrophils (%) (Auto) 89.2 Lymphocytes (%) (Auto) 4.2 Monocytes (%) (Auto) 6.4 Eosinophils (%) (Auto) 0.0 Basophils (%) (Auto) 0.2 Neutrophils # (Auto) 14.8 Lymphocytes # (Auto) 0.7 Monocytes # (Auto) 1.1 Eosinophils # (Auto) 0.0 Basophils # (Auto) 0.0 CBC Comment AUTO DIFF Differential Comment AUTO DIFF CONFIRMED Prothrombin Time 22.7 Prothromb Time International 2.0 Ratio Activated Partial 52.2 Thromboplast Time Sodium Level 135 Potassium Level 4.6 Chloride Level 99 Carbon Dioxide Level 15.9 Anion Gap 20 Blood Urea Nitrogen 141 Creatinine 3.68 Estimat Glomerular Filtration 17 Rate Random Glucose 49 Calcium Level 7.7 Total Bilirubin 15.9 Direct Bilirubin 13.2 Indirect Bilirubin 2.7 Aspartate Amino Transf 488 (AST/SGOT) Alanine Aminotransferase 137 (ALT/SGPT) Alkaline Phosphatase 842 Total Protein 5.2 Albumin 1.7 Date/Time Procedure Status Source Growth 10/17/16 15:50 Gram Stain - Final Complete Fluid Peritoneal Fluid 10/17/16 15:50 Body Fluid Culture - Final Complete Fluid Peritoneal Fluid NO GROWTH IN 72 HRS.--AEROBICALLY OR ... Imaging Last Impressions Cholangiopancreatography MRI 10/18/16 0000 Signed Impressions: Service Date/Time: Tuesday, October 18, 2016 20:48 - CONCLUSION: 1. Multiple enhancing lesions throughout the liver characteristic for diffuse liver metastatic disease. 2. No evidence of gallstones or biliary tract obstruction. 3. There is thickening of the gallbladder wall suggestive of chronic gallbladder disease. 4. There is diffuse para-aortic adenopathy suspicious for neoplastic disease. 5. There is ascites in the upper abdomen. Zhou Alejandra MD Brain MRI 10/18/16 0000 Signed Impressions: Service Date/Time: Tuesday, October 18, 2016 11:45 - CONCLUSION: 1. Negative examination. Phi Anne MD Cyst Biopsy Asp-Paracentesis US 10/17/16 0000 Signed Impressions: Service Date/Time: Monday, October 17, 2016 08:42 - CONCLUSION: Uncomplicated ultrasound guided paracentesis. Ten Loyola MD Chest X-Ray 10/16/16 1157 Signed Impressions: Service Date/Time: Sunday, October 16, 2016 12:48 - CONCLUSION: Mild streaky opacity at both lung bases with no focal consolidation. This may represent atelectasis and/or scarring. Jayson Fernandez MD Chest CT 10/16/16 0000 Signed Impressions: Service Date/Time: Sunday, October 16, 2016 21:19 - CONCLUSION: 1. Minimal bibasilar consolidation in a somewhat linear configuration could be minimal infiltrate versus atelectasis. 2. Benign-appearing nodules right lung. Followup CT chest in 6-12 months. 3. Abdominal ascites. Isaak Jo MD Abdomen/Pelvis CT 10/16/16 0000 Signed Impressions: Service Date/Time: Sunday, October 16, 2016 15:31 - CONCLUSION: 1. The liver is enlarged and inhomogeneous with several ill-defined low attenuation masslike areas which are nonspecific but concerning for metastatic disease especially given the adenopathy. The liver margin is mildly lobular and this could indicate cirrhosis. 2. Retroperitoneal adenopathy. 3. Moderate amount of ascitic fluid. 4. Nonspecific, nonobstructive bowel gas pattern most consistent with a mild ileus. 5. Mild diverticulosis. 6. Consolidation in both lung bases with air bronchograms. Jayson Fernandez MD Physical Exam HEENT: Normocephalic; atraumatic; + jaundice. CHEST: CTA CARDIAC: RRR. ABDOMEN: Soft, nondistended, nontender; no hepatosplenomegaly; bowel sounds are present in all four quadrants. Ascites. EXTREMITIES: No clubbing, cyanosis, or edema. SKIN: Normal; no rash; + jaundice. SEED PELLETER: No focal deficits;Lethargic and oriented times three. (Ghazal Crockett LIFT SLAB OPERATOR) Assessment and Plan Plan ASSESSMENT: - Jaundice/Elevated LFTs. Abdomen/Pelvis CT (10/16/16)----> 1. The liver is enlarged and inhomogeneous with several ill-defined low attenuation masslike areas which are nonspecific but concerning for metastatic disease especially given the adenopathy. The liver margin is mildly lobular and this could indicate cirrhosis. 2. Retroperitoneal adenopathy. 3. Moderate amount of ascitic fluid. 4. Nonspecific, nonobstructive bowel gas pattern most consistent with a mild ileus. 5. Mild diverticulosis. 6. Consolidation in both lung bases with air bronchograms. MRCP (10/18/16)-----> 1. Multiple enhancing lesions throughout the liver characteristic for diffuse liver metastatic disease. 2. No evidence of gallstones or biliary tract obstruction. 3. There is thickening of the gallbladder wall suggestive of chronic gallbladder disease. 4. There is diffuse para-aortic adenopathy suspicious for neoplastic disease. 5. There is ascites in the upper abdomen. Worsening LFTs, T. Bili 15.9, AST 488, ALT 137, Alk Phosph 842. Unfortunately, there is no obstructive process in the CBD and therefore ERCP would not be of any benefit. CT guided liver biopsy ordered, but the plan is to get lymph node biospy first. Of note, his INR is 2.0 today. Will notify hematology, surgery. Oncology following. - Liver mass. CT as above. Tumor markers with AFP 0.9, CEA 5.4, Ca 19-9 83.1. S/P diagnostic paracentesis and fluid was sent for cytology. Pt denies any hx of hepatitis or liver disease, never a drinker. Hepatitis panel negative. Recently had colonoscopy 3 weeks ago and had 2 polyps removed, patient states he was told these were benign. (Pt originally said this was Dr. Reeder, but mother clarified that it was actually Dr. Hines). Oncology following. Going for lymph node biopsy today, possible liver biopsy depending on results. - Abdominal pain. C/O abdominal pain x 2-3 weeks with decreased appetite/weight loss. - Anorexia, Abn. wt. loss. 18 lbs over 2 weeks. - Ascites. S/P Diagnostic paracentesis with removal of 2,600 (10/17). Cytology pending. - Leukocytosis. WBC 16.6. Afebrile. - Coagulopathy, worsening. PT 22.7, INR 2.0. - Acute renal failure, worsening kidney function. Creat 3.68 today. - Hypotension. Started on albumin. - HIV, on HAART therapy. Dx 7 years ago. States that this is well controlled although he does not know his exact numbers. PLAN: - NPO for lymph node biopsy - Will notify hematology/gs of INR (2.0), as he is scheduled for lymph node biopsy at 3pm. - Await liver workup - Monitor labs - Supportive care - Pt with poor prognosis - Further recommendations to follow based on results of above - Pt seen and examined by Dr. Valencia and myself and this note is written on her behalf (Ghazal Crockett) Physician Comments seen, examined agree with above liver failure , metastatic liver disease suspicion for lymphoma consider hospice (Naz Valencia MD) Ghazal Crockett Oct 20, 2016 11:30 Naz Valencia MD Oct 20, 2016 17:49
[2016-10-20] MEDS ORDERED: PHYTONADIONE 10 MG/ML VIAL SQ ONE (12:45)
[2016-10-20 14:12] LABS: INTERNATIONAL NORMALIZED RATIO 2.1 RATIO
[2016-10-20 15:14] LABS: ANA SCREEN POS (NEG)
--- NOTE | 2016-10-20 15:57 | HHI.PR ---
Subjective Remarks f/u for liver mass and acute renal failure. patient was hypotensive in the AM with SBP in 50s recheck and in 70s. Patient stated he is feeling better despite him looking more ill. He stated abdominal pain has improved. Denied any N/V. he stated he is eating but from what I gathered for his sister who is at the bedside he lost his appetite. Continue to make urine. Objective Vitals Vital Signs Date Time Temp Pulse Resp B/P Pulse Ox O2 Delivery O2 Flow Rate FiO2 10/20/16 08:10 77/41 10/20/16 07:50 55/31 10/20/16 04:00 98.0 81 22 92/58 93 10/20/16 00:00 97.8 81 22 155/80 94 10/19/16 20:00 79 10/19/16 20:00 98.0 82 22 106/57 94 10/19/16 16:30 99.3 81 20 94/52 95 I/O 10/19/16 10/19/16 10/19/16 10/20/16 10/20/16 10/20/16 07:00 15:00 23:00 07:00 15:00 23:00 Intake Total 598 ml 120 ml Balance 598 ml 120 ml Intake Oral 240 ml 120 ml IV Total 358 ml # Voids 2 5 # Bowel Movements 1 4 Result Diagram: 10/20/1671310/20/1614 Objective Remarks GENERAL: in NAD sclera icterus CARDIOVASCULAR: Regular rate and rhythm without murmurs, gallops, or rubs. RESPIRATORY: Breath sounds equal bilaterally. No accessory muscle use. GASTROINTESTINAL: Abdomen soft, non-tender, nondistended. no TTP. MUSCULOSKELETAL: No cyanosis, or edema. BACK: Nontender without obvious deformity. No CVA tenderness. Medications and IVs Current Medications IV Flush (NS Flush) 2 ml UNSCH PRN IVF FLUSH AFTER USING IV ACCESS; Start 10/16 at 12:00; Stop 10/20/16 at 08:22; Status DC Pantoprazole Sodium (Protonix Inj) 40 mg ONCE ONCE IV PUSH Last administered on 10/16/16t 12:09; Start 10/16/16 at 12:15; Stop 10/16/16 at 12:16; Status DC Morphine Sulfate (Morphine Inj) 4 mg ONCE ONCE IV PUSH Last administered on 12:28; Start 10/16/16 at 12:30; Stop 10/16/16 at 12:31; Status DC Lactulose (Lactulose Liq) 30 ml ONCE ONCE PO Last administered on 10/16/16 17 :43; Start 10/16/16 at 16:45; Stop 10/16/16 at 16:46; Status DC Albuterol/ Ipratropium (Duoneb Neb) 1 ampule Q4HR NEB PRN NEB SOB/WHEEZING; Start 10/16/16 at 19:30 Budesonide/ Formoterol Fumarate (Symbicort 160-4.5 Inh) 2 puff Q12HR INH Last administered on 10/20/16 10:03; Start 10/16/16 at 21:00 Guaifenesin 600 mg 600 mg BID PO Last administered on 10/20/16 09:56; Start at 21:00 Ceftriaxone Sodium 1000 mg/ Sodium Chloride 100 ml @ 200 mls/hr Q24H IV Last administered on 10/19/16 20:35; Start 10/16/16 at 20:00 Azithromycin/ Sodium Chloride (Zithromax Inj/ NS 250 ml Inj) 250 ml @ 250 mls/ hr Q24H IV Last administered on 10/19/16 20:36; Start 10/16/16 at 21:00 Lactulose (Lactulose Liq) 30 ml QID PO Last administered on 10/20/16 12:29; Start 10/16/16 at 21:00 IV Flush (NS Flush) 2 ml UNSCH PRN FLUSH FLUSH AFTER USING IV ACCESS; Start at 19:30 IV Flush (NS Flush) 2 ml BID FLUSH Last administered on 10/20/16 10:03; Start 10/16/16 at 21:00 Ondansetron HCl (Zofran Inj) 4 mg Q6H PRN IVP NAUSEA OR VOMITING; Start at 19:30 Bisacodyl (Dulcolax Supp) 10 mg DAILY PRN MA CONSTIPATION; Start 10/16/16 at 19 :30 Morphine Sulfate (Morphine Inj) 2 mg Q3H PRN IV Pain 6-10; Start 10/16/16 at 19 :30 Oxycodone HCl (Roxicodone) 5 mg Q4H PRN PO PAIN SCALE 3 TO 5 Last administered on 10/17/16 18:43; Start 10/16/16 at 19:30 Efavirenz (Sustiva) 600 mg HS PO Last administered on 10/19/16 20:39; Start at 21:00 Tamsulosin HCl (Flomax) 0.4 mg HS PO Last administered on 10/19/16 20:40; Start 10/16/16 at 21:00 Valacyclovir HCl (Valtrex) 1,000 mg DAILY PO Last administered on 10/20/16 09: 00; Start 10/17/16 at 09:00 Patient Own Medication PT OWN MED: DESCOVY (EMTRICITABINE-TENO... DAILY PO Last administered on 10/20/16 09:59; Start 10/17/16 at 09:00 Propranolol HCl (Inderal) 10 mg Q12HR PO Last administered on 10/18/16 22:16; Start 10/16/16 at 21:15 Spironolactone (Aldactone) 50 mg DAILY PO Last administered on 10/20/16 09:56 ; Start 10/17/16 at 09:00 Gadobenate Dimeglumine (Multihance Pf Inj) 19 ml STK-MED ONCE IV Last administered on 10/18/16 12:00; Start 10/18/16 at 12:00; Stop 10/18/16 at 12:01 ; Status DC Gadobenate Dimeglumine (Multihance Pf Inj) 19 ml STK-MED ONCE IV Last administered on 10/18/16 21:35; Start 10/18/16 at 21:35; Stop 10/18/16 at 21:36 ; Status DC Phytonadione (Mephyton) 5 mg DAILY PO Last administered on 10/20/16 10:20; Start 10/20/16 at 09:00 Phytonadione 5 mg 5 mg ONCE ONCE PO Last administered on 10/19/16 15:00; Start 10/19/16 at 11:45; Stop 10/19/16 at 12:20; Status DC Sodium Chloride (NS 500 ml Inj) 500 ml @ 0 mls/hr BOLUS ONCE IV Last administered on 10/20/16 08:30; Start 10/20/16 at 08:30; Stop 10/20/16 at 08:31 ; Status DC Albumin Human (Albumin 25% Inj) 12.5 gm Q12H IV Last administered on 10/20/16 09:49; Start 10/20/16 at 09:00 Dextrose (D50w (Syr) Inj) 50 ml STK-MED ONCE .ROUTE Last administered on 10:21; Start 10/20/16 at 10:08; Stop 10/20/16 at 10:09; Status DC Dextrose 25 ml 25 ml NOW ONCE IV PUSH ; Start 10/20/16 at 10:30; Stop 10/20/16 at 10:31; Status DC Dextrose/Sodium Chloride (D5W-NS 1000 ml Inj) 1,000 ml @ 75 mls/hr [id number] IV Last administered on 10/20/16 11:14; Start 10/20/16 at 10:21 Phytonadione (Vitamin K Inj) 10 mg ONCE ONCE SQ Last administered on 14:34; Start 10/20/16 at 12:45; Stop 10/20/16 at 12:46; Status DC A/P Problem List: (1) Encephalopathy ICD Code: G93.40 Status: Acute (2) Liver masses ICD Code: R16.0 Status: Acute (3) Ascites ICD Code: R18.8 Status: Acute (4) Coagulopathy ICD Code: D68.9 Status: Acute (5) PNA (pneumonia) ICD Code: J18.9 Status: Acute (6) Hypoxia ICD Code: R09.02 Status: Acute (7) HIV (human immunodeficiency virus infection) ICD Code: Z21 Status: Acute (8) SENG (acute kidney injury) ICD Code: N17.9 Status: Acute Assessment and Plan Hepatic Encephalopathy -Secondary to new onset cirrhosis/liver masses. Intermittent confusion. Ammonia elevated at 48, s/p Lactulose - will continue w/ Lactulose qid. Hypotension -due to severe liver disease and ARF. -patient given bolus, started on albumin, and will need to start fluids D5NS. -continue to monitor. Liver Masses - newly diagnosed liver masses via outpatient US approx 1 wk ago per patient, CT Abd/Pelvis w/ enlarged liver and several masslike areas concerning for metastatic disease, cirrhosis, retroperitoneal adenopathy and moderate ascites - Oncology consulted and appreciate recommendation. patient will cervical lymph node biopsy by surgery tomorrow. -MRCP showed by multiple enhancing lesions throughout the liver characteristic for diffuse liver metastatic disease, there is thickening of the gallbladder wall suggestive of chronic gallbladder, there is diffuse para-aortic adenopathy suspicious for neoplastic disease and here is ascites in the upper abdomen. -LFT increasing but most likely due to mets. -GI ff. -INR increasing and heme/onc gave vitamin K. ARF -improved then worsening and continues to worsens. -school community relations coordinator on board and is working up. -he stated can be hepatorenal vs ATN. -continue to monitor. strict i/o. patient is making urine. -avoid nephrotoxins. Ascites -secondary to above. New Onset. CT Abd/Pelvis w/ moderate ascites -on Propranolol and Aldactone-caution w/ renal insufficiency but that was held due to hypotension. -GI consulted. pending culture. Elevated LFTs -continues increasing. -no previous labs for comparison, AST 245, ALT 90, ALP 920, Total Bili 8.8, secondary to above findings. -due to liver mets. -hepatitis panel negative. Coagulopathy - secondary to cirrhosis/liver masses, INR 2.0 now, no active bleeding at this time. -continue to monitor -pipe or steam fitter furnace installer giving vitamin K. PNA - CXR w/ bilateral basilar streaky opacities, CT Abd/Pelvis w/ bilateral consolidations at bases w/ air bronchograms -continue IV Rocephin/Zithro, DuoNeb prn Hypoxia - Transient, resolved. Multifactorial-orthopnea due to ascites and PNA. O2 sat currently 98% on 5L NC. HIV - Reports CD4 is "real good". Follows w/ Dr. Evans as outpatient, recent medication change in Aug 2016 during last visit, reports compliance w/ meds. Not on prophylaxis per pt. -pending CD4. DVT Prophylaxis: Pharmacologic contraindication secondary to coagulopathy. Discharge Planning Very poor prognosis. Liver and renal failure are worsening. I d/w patient and his sister at the bedside in regards to prognosis and told them that he has a very poor prognosis and that if a diagnosis is able to be obtain most likely cannot tolerate chemo. Sister wants to wait for results before making decision. She also asked me to fill out FMLA forms. Lois Meyers MD Oct 20, 2016 15:57
[2016-10-20] MEDS ORDERED: SODIUM CHLOR 0.9% 1000 ML INJ 1,000 ML IV ONE ×2 (17:30→18:30)
[2016-10-20] MEDS ORDERED: CEFEPIME INJ 2,000 MG in SODIUM CHLORIDE 0.9% INJ 100 ML IV SCH (18:00)
--- NOTE | 2016-10-20 19:19 | HHI.NPPN ---
Subjective Renal Failure: Acute History of Present Illness 56-year-old male with a past medical history of HIV disease on HAART, history of hypertension and hyperlipidemia, who was transferred from [facility] because of confusion, shortness of breath and hypoxemia. I was called to see the patient because of elevated BUN and creatinine. Additional Remarks Patient is alert, seen in RR, has still low BP. Review of Systems General Constitutional: Fatigue Cardiovascular Cardiac: [place] Objective Data Data 10/19/16 10/20/16 19:00 07:00 Intake Total 718 ml Balance 718 ml Intake Oral 360 ml IV Total 358 ml # Voids 7 # Bowel Movements 5 Vital Signs Date Time Temp Pulse Resp B/P Pulse Ox O2 Delivery O2 Flow Rate FiO2 10/20/16 08:10 77/41 10/20/16 07:50 55/31 10/20/16 04:00 98.0 81 22 92/58 93 10/20/16 00:00 97.8 81 22 155/80 94 10/19/16 20:00 79 10/19/16 20:00 98.0 82 22 106/57 94 -: 10/20/16 0714 10/20/16 0714 Physical Exam General Appearance: No Acute Distress, Comfortable Eyes Eye Exam: Pupils Equal Throat Throat Exam: Oral Mucosa [place] & Moist Pulmonary Resp Exam: Breath Sounds Equal, No Distress, Decreased Bases Cardiology CV Exam: Regular, Normal Sinus Rhythm Gastrointestinal/Abdomen GI Exam: Soft, Non-Tender, Bowel Sounds Present, Non-Distended Extremeties Extremities Exam: Trace Edema Neurologic Neuro Exam: Alert, Awake, Oriented Psychiatric Psych Exam: Appropriate Responses Assessment/Plan Assessment Summary: SENG/Acute Renal Failure Problem List: (1) Ascites (2) HIV (human immunodeficiency virus infection) (3) Liver masses (4) PNA (pneumonia) (5) Lymphadenopathy (6) SENG (acute kidney injury) Plan Patient has low urine Na. Differential for renal failure will be ATN, Possible Hepato renal or HIV Nephropathy. Non oliguric. Creatinine is still increasing. Has Paracentesis done yesterday. BP dropped and LN Biopsy not done. Got IVF Bolus. To transfer to [facility] [place]. Follow urine out put and BMP. Balwinder Jade MD Oct 20, 2016 19:19
[2016-10-20 20:00] VITALS: BP 75/44; PULSE 72; RESP 49; TEMP 98; O2SAT 90
[2016-10-20 20:15] VITALS: O2SAT 92
[2016-10-20] MEDS ORDERED: TERBUTALINE INJ 1 MG/ML AMP SQ PRN (20:30)
[2016-10-20] MEDS: DOPamine INJ PREMIX 500 ML IV SCH (20:35)
[2016-10-20] MEDS: AZITHROMYCIN INJ 500 MG in SODIUM CHLOR 0.9% 250 ML INJ 250 ML IV SCH (20:36)
[2016-10-20] MEDS ORDERED: CHLORHEXIDINE GLUCONATE 2 % 1 PACK (2 CLOTHS)(extra cloths) TOP PRN (20:45)
[2016-10-21] VITALS (8 sets, daily range): BP systolic 87–147; BP diastolic 51–82; PULSE 78–81; RESP 19–24; TEMP 98.2–98.6; O2SAT 90–94
[2016-10-21] MEDS: MORPHINE SULFATE 4 MG/ML INJ IV PUSH PRN ×2 (03:32→08:18)
[2016-10-21] MEDS ORDERED: CHLORHEXIDINE GLUCONATE 2 % 1 PACK (2 CLOTHS)(taper/protocol) TOP SCH (04:00)
[2016-10-21 06:33] LABS: AUTOMATED NEUTROPHIL # 18.7 TH/MM3 (1.8-7.7); BASOPHIL # 0.1 TH/MM3 (0-0.2); BASOPHIL % 0.3 % (0.0-2.0); EOSINOPHIL % 0.1 % (0.0-4.0); HEMATOCRIT 39.6 % (39.0-51.0); LYMPH % 3.4 % (9.0-44.0); LYMPHOCYTE # 0.7 TH/MM3 (1.0-4.8); MEAN CELL VOLUME 94.1 FL (80.0-100.0); MEAN CORPUSCULAR HEMOGLOBIN 31.8 PG (27.0-34.0); MEAN CORPUSCULAR HGB CONC 33.8 % (32.0-36.0); MONO % 5.2 % (0.0-8.0); PLATELET COUNT 160 TH/MM3 (150-450); RED BLOOD COUNT 4.21 MIL/MM3 (4.50-5.90); RED CELL DISTRIBUTION WIDTH 17.4 % (11.6-17.2); WHITE BLOOD COUNT 20.6 TH/MM3 (4.0-11.0)
[2016-10-21 06:41] LABS: HEMO FLAGS AUTO DIFF
[2016-10-21 07:04] LABS: APTT (PATIENT) 54.3 SEC (24.3-30.1); INTERNATIONAL NORMALIZED RATIO 1.9 RATIO; PROTHROMBIN TIME - PATIENT 21.2 SEC (9.8-11.6)
[2016-10-21 07:22] LABS: BANDS 5 % (0-6); NEUTROPHIL # MANUAL DIFF 18.5 TH/MM3 (1.8-7.7); POLYS (SEG NEUTROPHILS) 85 % (16-70); WBC DIFF SAMPLE 100
[2016-10-21 07:23] LABS: PLATELET ESTIMATE SMEAR NORMAL (NORMAL); PLATELET MORPHOLOGY CLUMPED (NORMAL); SCAN/DIFF FINAL DIFF MANUAL; TARGET CELLS 1+ (NORMAL)
[2016-10-21] MEDS: DEXT 5%-NACL 0.9% 1000 ML INJ 1,000 ML IV SCH (08:08)
[2016-10-21] MEDS: ALBUMIN HUMAN 25% 12.5 GM/50 ML BAGP IV SCH (08:16)
[2016-10-21] MEDS: SODIUM CHLORIDE 0.9% FLUSH 5 ML FLUSH FLUSH SCH (08:17)
[2016-10-21] MEDS: LACTULOSE SYRUP 20 GM/30 ML CUP PO SCH ×2 (08:17→13:10)
[2016-10-21] MEDS: PHYTONADIONE 5 MG TAB PO SCH (08:17)
[2016-10-21 08:50] LABS: TOTAL BILIRUBIN ADULT 20.1 MG/DL (0.2-1.0)
[2016-10-21 08:51] LABS: INDIRECT BILIRUBIN 4.6 MG/DL (0.0-0.8)
--- NOTE | 2016-10-21 09:57 | PD.CONS ---
Consult Service Palliative Care . Consult Requested By Dr. Meyers . Primary Care Physician Dr. Mauricio in [place] . Reason for Consultation a. To assist with evaluation and management of symptoms including: pain, decreased appetite, weakness, lethargy, restlessness, pain. b. To assist medical decision maker(s) with: better understanding of current medical conditions; weighing benefits/burdens of medical treatment options; making medical treatment decisions. . (DEVORA MENESES) HPI History of Present Illness Mr. Epps is a 56 year old male with past medical history of hypertension, hyperlipidemia, HIV + for 7 years on HAART, BPH and prior Shingles. He is followed by Dr. Evans for management of HIV. Colonoscopy with Dr. Reeder 3 weeks ago which revealed 2 polyps, reportedly benign. Patient presented to [facility] emergency department on 10/16/16 with worsening confusion and shortness of breath in the days prior to presentation. Patient had an outpatient liver ultrasound and was told he had 2 liver masses. He was scheduled for MRI, was unable to complete the test given shortness of breath and sent to ER for further evaluation. Upon presentation the patient also reported right upper quadrant abdominal pain. Denied fever, chills, nausea or vomiting. He reported constipation stating he had not had a good bowel movement in 2 1/2 weeks. Initial evaluation revealed: * VS: 98.3, pulse 103, resp 20, BP 123/81 and O2 sat 91% on 2L NC * WBC 14.3, hemoglobin 13.7, hematocrit 40.6, platelets 173, neutrophils 85.5% * PT 16.4, INR 1.5, PTT 35.2 * sodium 137, potassium 4.9, chloride 101, carbon dioxide 19, BUN 86, creatinine 2.49, GFR 27, glucose 136 * total bilirubin 8.8, AST 245, ALT 90, alkaline phosphatase 920 * ammonia 48 * total protein 6.9, albumin 2.1 * lipase 324 * CT chest minimal bibasilar consolidation linear configuration could be minimal infiltrate versus atelectasis, benign appearing nodules right lung, abdominal ascites. * CT abdomen pelvis liver is enlarged with several ill-defined low attenuation masslike areas concerning for metastatic disease, retroperitoneal adenopathy, moderate amount of ascitic fluid, nonobstructive bowel gas pattern most consistent with mild ileus, mild diverticulosis, consolidation both lungs with air bronchograms. Patient was admitted with encephalopathy, coagulopathy, pneumonia, ascites and liver masses. Patient underwent ultrasound guided paracentesis with removal of 2.6 L fluid, cytology negative malignant cells. MRCP revealed multiple enhancing lesions throughout the liver characteristic for diffuse liver metastatic disease, no gallstones or biliary tract obstruction, thickening of the gallbladder wall suggestive of chronic gallbladder disease, diffuse para- aortic adenopathy suspicious for neoplastic disease, ascites in the upper abdomen. Dr. Reeves, medical oncologist was consulted for evaluation of liver masses. Family reported to Dr. Reeves he had been ill for the past month with weight loss, weakness and jaundice. Patient was also found to have left cervical, supraclavicular and retroperitoneal lymphadenopathy with concern for possible non-Hodgkin's lymphoma, though given liver masses other malignancy cannot be ruled out. CA 19-9 is elevated 83.1. He was scheduled for lymph node biopsy for diagnostic purposes (not done), however he developed severe hypotension with systolic BP in the 70's and was transferred to ICU. His liver and renal function are worsening. Total bilirubin has continue to rise, increased significantly to 20.1 from 15 yesterday, AST 787 , ALT 189, Alk phos 882. Creatinine 3.68, BUN 141, GFR 17. Albumin 1.9. WBC 20.6 Palliative care is consulted for worsening condition and poor prognosis to assist with further clarification of treatment goals. . Function/Cognitive Trajectory Recent rapid decline. (DEVORA MENESES OUTSIDE INSTALLER APPRENTICE-C) Review of Systems ROS Limitations: Altered Mental Status (intermittent confusion and lethargy. ) Constitutional: COMPLAINS OF: Fatigue, Weight loss (20 pounds over past month. ), Change in appetite (decreased, eating bites and sips), Generalized weakness Ears, nose, mouth, throat: DENIES: Tinnitus, Hearing loss, Vertigo, Nasal discharge, Oral lesions, Throat pain, Hoarseness, Ear Pain, Running Nose, Epistaxis, Sinus Pain, Toothache, Odynophagia Respiratory: DENIES: Apneas, Cough, Snoring, Wheezing, Hemoptysis, Sputum production, Shortness of breath Gastrointestinal: COMPLAINS OF: Abdominal pain (on admission now resolved. ), Constipation, Anorexia, Bloating Musculoskeletal: COMPLAINS OF: Back pain Integumentary: COMPLAINS OF: Abnormal pigmentation (jaundice) Hematologic/Lymphatics: COMPLAINS OF: Bruising Psychiatric: COMPLAINS OF: Anxiety Other ROS: scleral icterus (ZAIRADEVORA) Past Family Social History Coded Allergies: Levaquin (Verified Allergy, Severe, Lethargy, 10/05/16) Past Medical History HIV on HAART HTN Hyperlipidemia Colon polyps Shingles BPH . Past Surgical History Colonoscopy PICC line in past . Reported Medications Reported Meds & Active Scripts Active Reported Descovy (Emtricitabine-Tenofovir Alafenamide) 200-25 mg Tab 1 Tab PO DAILY Sustiva (Efavirenz) 600 Mg Tab 600 Mg PO HS Flomax (Tamsulosin HCl) 0.4 Mg Cap 0.4 Mg PO HS Crestor (Rosuvastatin Calcium) 10 Mg Tab 10 Mg PO HS Amlodipine (Amlodipine Besylate) 10 Mg Tab 10 Mg PO HS Valtrex (Valacyclovir HCl) 1 Gm Tab 1,000 Mg PO DAILY Clonidine (Clonidine HCl) 0.2 Mg Tab 0.2 Mg PO HS Zofran (Ondansetron HCl) 4 Mg Tab 4 Mg PO Q6HR PRN Ecotrin Low Strength (Aspirin) 81 Mg Tabdr 81 Mg PO DAILY Hydrochlorothiazide 25 Mg Tab 25 Mg PO DAILY Lisinopril 40 Mg Tab 40 Mg PO DAILY Potassium Chloride ER (Potassium Chloride) 20 Meq Tab 20 Meq PO BID . Current Medications Medications (Trade) Dose Ordered Sig/Elisa Route Start Time Stop Time Status Last Admin (Symbicort 160-4.5 Inh) 2 puff Q12HR INH 10/16/16 21:00 10/20/16 10:03 Guaifenesin 600 mg 600 mg BID PO 10/16/16 21:00 Hold 10/20/16 09:56 (Zithromax Inj/ NS 250 ml Inj) 250 ml @ 250 mls/hr Q24H IV 10/16/16 21:00 10/20/16 20:36 (Lactulose Liq) 30 ml QID PO 10/16/16 21:00 10/21/16 08:17 (NS Flush) 2 ml UNSCH PRN FLUSH 10/16/16 19:30 (NS Flush) 2 ml BID FLUSH 10/16/16 21:00 10/21/16 08:17 (Zofran Inj) 4 mg Q6H PRN IVP 10/16/16 19:30 (Dulcolax Supp) 10 mg DAILY PRN IL 10/16/16 19:30 (Roxicodone) 5 mg Q4H PRN PO 10/16/16 19:30 Hold 10/17/16 18:43 (Sustiva) 600 mg HS PO 10/16/16 21:00 Hold 10/19/16 20:39 (Flomax) 0.4 mg HS PO 10/16/16 21:00 Hold 10/19/16 20:40 (Valtrex) 1,000 mg DAILY PO 10/17/16 09:00 Hold 10/20/16 09:00 Patient Own Medication PT OWN MED: DESCOVY (EMTRICITABINE-TENO... DAILY PO 10/17/16 09:00 Hold 10/20/16 09:59 (Inderal) 10 mg Q12HR PO 10/16/16 21:15 Hold 10/18/16 22:16 (Mephyton) 5 mg DAILY PO 10/20/16 09:00 10/21/16 08:17 Albumin Human 12.5 gm 12.5 gm Q12H IV 10/20/16 09:00 10/21/16 08:16 Dextrose/Sodium Chloride 1,000 ml @ 100 mls/hr Q10H IV 10/20/16 10:21 10/20/16 20:37 Cefepime HCl 2000 mg/Sodium Chloride 100 ml @ 200 mls/hr DAILY@18 IV 10/20/16 18:00 10/20/16 18:00 (DOPamine INJ PREMIX) 500 ml @ 10.305 mls/ hr TITRATE IV 10/20/16 20:30 10/20/16 20:35 (Brethine Inj) 1 mg UNSCH PRN SQ 10/20/16 20:30 Miscellaneous Information Patient in critical care unit? Ass... Q361D XX 10/20/16 20:45 10/20/16 20:45 (Chlorhexidine 2% Cloth) 3 pack DAILY@04 TOP 10/21/16 04:00 10/25/16 04:01 10/21/16 03:00 (Chlorhexidine 2% Cloth) 3 pack UNSCH PRN TOP 10/20/16 20:45 10/25/16 20:40 (Morphine Inj) 1 mg Q3H PRN IV PUSH 10/21/16 03:00 10/21/16 08:18 . Family History Father of DM and renal failure. Mother alive and well. 1 brother and 1 sister alive with DM and HTN. No children. . Substance Use Tobacco: Alcohol: Prescription med abuse: Illicits: Psychosocial History Single. No children. Lives with his mother in [place]. Has 1 brother and 1 sister. Works at [employer]. . Spiritual/Cultural Factors Sabianism eleonora, offered derivatives trader, family has contacted their derivatives trader, will let us know if hospital derivatives trader needed. . (DEVORA MENESES) Health Care Surrogate: Copy in medical record (faxed to HIM to be scanned into EMR. ) Date completed: 10/18/16 Health Care Surrogate(s): Designated his sister, Socorro Hamilton as primary HCS and mother, Katina Epps as alternate HCS. Today's verbally stated goals: Elects NO CODE. Patient does not want to in the hospital, considering home with hospice vs hospice care center placement. . Family/friends goals: Family understands poor prognosis. Hospice consulted. Ethical and Legal Issues Recommend shared decision making given renal and liver failure and associated encephalopathy/ lethargy. Designated his sister, Socorro Hamilton as primary HCS and mother, Katina Epps as alternate HCS. . (DEVORA MENESES) Physical Exam Vital Signs Date Time Temp Pulse Resp B/P Pulse Ox O2 Delivery O2 Flow Rate FiO2 10/21/16 08:27 20 10/21/16 04:00 98.4 81 23 94/51 91 10/21/16 00:00 98.2 81 19 87/52 91 10/20/16 20:15 92 Simple Mask 10.00 10/20/16 20:00 98.0 72 49 75/44 90 10/20/16 18:50 97 Nasal Cannula 2 10/20/16 18:45 69 12 83/39 97 10/20/16 18:30 69 12 79/33 96 10/20/16 18:15 66 12 59/34 96 10/20/16 18:00 82 12 66/37 96 10/20/16 17:45 67 12 62/34 97 10/20/16 17:30 66 12 59/36 97 10/20/16 17:15 68 12 67/36 96 3/22/17 17:00 66 12 65/33 93 10/20/16 16:45 82 12 63/30 94 10/20/16 16:30 71 12 60/35 93 10/20/16 16:30 93 Nasal Cannula 2 10/20/16 10/21/16 19:00 07:00 Intake Total 1910 ml Output Total 490 ml Balance 1420 ml Intake Oral 480 ml IV Total 1430 ml Output Urine Total 490 ml # Bowel Movements 2 Exam CONSTITUTIONAL/GENERAL: This is an adequately nourished, jaundiced patient, restless and lethargic. TUBES/LINES/DRAINS: NC, PIV, SCDs SKIN: + jaundice. Ecchymoses on upper extremities. Buttocks red. Skin temperature appropriate. Not diaphoretic. HEAD: Atraumatic. Normocephalic. EYES: Pupils equal and round and reactive. Extraocular motions intact. + scleral icterus. ENT: Hearing grossly normal. Nose without bleeding or purulent drainage. Throat without visible erythema, exudates, masses, or lesions. NECK: Trachea midline. CARDIOVASCULAR: Intermittent tachycardia. No JVD. Peripheral pulses symmetric. RESPIRATORY/CHEST: Symmetric, unlabored respirations. Clear to auscultation. GASTROINTESTINAL: Abdomen firm, distended., non-tender. No guarding. Bowel sounds present. GENITOURINARY: Without palpable bladder distension. MUSCULOSKELETAL: Extremities without clubbing, cyanosis, or edema. No mottling or clubbing. LYMPHATICS: + cervical or supraclavicular adenopathy. NEUROLOGICAL: Awakens easily, lethargic, attempts to remain engaged in conversation, appears difficult. Follows commands. Moves all extremities. PSYCHIATRIC: Restless. . (DEVORA MENESES OUTSIDE INSTALLER APPRENTICE-C) Diagnostic Tests Laboratory Laboratory Tests Test 10/18/16 10/18/16 10/18/16 10/19/16 13:25 13:58 15:35 06:10 Anti-Smooth Muscle Antibody Negative (Negative) Svfya-4-Jloqosszcrd 315 mg/dL (100 - 190) Anti-Nuclear Antibody Screen POS (NEG) Urine Color DARK-YELLOW (YELLW/STRAW) Urine Turbidity HAZY (CLEAR) Urine pH 5.0 (5.0-8.5) Urine Specific [place] 1.018 (1.002-1.035) Urine Protein TRACE mg/dL (NEG-TRACE) Urine Glucose (UA) NEG mg/dL (NEG) Urine Ketones NEG mg/dL (NEG) Urine Occult Blood NEG (NEG) Urine Nitrite NEG (NEG) Urine Bilirubin LARGE (NEG) Urine Urobilinogen LESS THAN 2.0 MG/DL (LESS THAN 2.0) Urine Leukocyte Esterase NEG (NEG) Urine RBC 1 /hpf (0-3) Urine WBC 4 /hpf (0-5) Urine Squamous Epithelial <1 /hpf (0-5) Cells Urine Hyaline Casts 18 /lpf (RARE) Urine Granular Casts 5 /lpf (NONE) Urine Mucus FEW /lpf (OCC) Microscopic Urinalysis Comment CULT NOT INDICATED Urine Eosinophils NONE SEEN /HPF (NONE SEEN) Urine Random Sodium 7 MEQ/L Prothrombin Time 21.4 SEC (9.8-11.6) Prothromb Time International 1.9 RATIO Ratio Test 10/19/16 10/20/16 10/20/16 10/20/16 06:16 07:14 13:30 19:10 White Blood Count 15.0 TH/MM3 16.6 TH/MM3 (4.0-11.0) (4.0-11.0) Red Blood Count 4.45 MIL/MM3 4.26 MIL/MM3 (4.50-5.90) (4.50-5.90) Hemoglobin 14.3 GM/DL 13.3 GM/DL (13.0-17.0) (13.0-17.0) Hematocrit 40.9 % 39.8 % (39.0-51.0) (39.0-51.0) Mean Corpuscular Volume 91.8 FL 93.4 FL (80.0-100.0) (80.0-100.0) Mean Corpuscular Hemoglobin 32.2 PG 31.3 PG (27.0-34.0) (27.0-34.0) Mean Corpuscular Hemoglobin 35.1 % 33.5 % Concent (32.0-36.0) (32.0-36.0) Red Cell Distribution Width 16.7 % 17.5 % (11.6-17.2) (11.6-17.2) Platelet Count 164 TH/MM3 146 TH/MM3 (150-450) (150-450) Mean Platelet Volume 9.3 FL 9.2 FL (7.0-11.0) (7.0-11.0) Neutrophils (%) (Auto) 87.3 % 89.2 % (16.0-70.0) (16.0-70.0) Lymphocytes (%) (Auto) 5.2 % 4.2 % (9.0-44.0) (9.0-44.0) Monocytes (%) (Auto) 7.2 % (0.0-8.0) 6.4 % (0.0-8.0) Eosinophils (%) (Auto) 0.0 % (0.0-4.0) 0.0 % (0.0-4.0) Basophils (%) (Auto) 0.3 % (0.0-2.0) 0.2 % (0.0-2.0) Neutrophils # (Auto) 13.1 TH/MM3 14.8 TH/MM3 (1.8-7.7) (1.8-7.7) Lymphocytes # (Auto) 0.8 TH/MM3 0.7 TH/MM3 (1.0-4.8) (1.0-4.8) Monocytes # (Auto) 1.1 TH/MM3 1.1 TH/MM3 (0-0.9) (0-0.9) Eosinophils # (Auto) 0.0 TH/MM3 0.0 TH/MM3 (0-0.4) (0-0.4) Basophils # (Auto) 0.0 TH/MM3 0.0 TH/MM3 (0-0.2) (0-0.2) CBC Comment DIFF FINAL AUTO DIFF Differential Comment AUTO DIFF CONFIRMED Sodium Level 135 MEQ/L 135 MEQ/L (136-145) (136-145) Potassium Level 4.4 MEQ/L 4.6 MEQ/L (3.5-5.1) (3.5-5.1) Chloride Level 98 MEQ/L 99 MEQ/L (98-107) (98-107) Carbon Dioxide Level 20.2 MEQ/L 15.9 MEQ/L (21.0-32.0) (21.0-32.0) Anion Gap 17 MEQ/L (5-15) 20 MEQ/L (5-15) Blood Urea Nitrogen 114 MG/DL 141 MG/DL (7-18) (7-18) Creatinine 2.63 MG/DL 3.68 MG/DL (0.60-1.30) (0.60-1.30) Estimat Glomerular Filtration 26 ML/MIN (>89) 17 ML/MIN (>89) Rate Random Glucose 70 MG/DL 49 MG/DL (74-106) (74-106) Calcium Level 7.9 MG/DL 7.7 MG/DL (8.5-10.1) (8.5-10.1) Total Bilirubin 14.7 MG/DL 15.9 MG/DL (0.2-1.0) (0.2-1.0) Aspartate Amino Transf 425 U/L (15-37) 488 U/L (15-37) (AST/SGOT) Alanine Aminotransferase 120 U/L (12-78) 137 U/L (12-78) (ALT/SGPT) Alkaline Phosphatase 867 U/L 842 U/L (45-117) (45-117) Total Protein 5.6 GM/DL 5.2 GM/DL (6.4-8.2) (6.4-8.2) Albumin 1.6 GM/DL 1.7 GM/DL (3.4-5.0) (3.4-5.0) Prothrombin Time 22.7 SEC 24.0 SEC (9.8-11.6) (9.8-11.6) Prothromb Time International 2.0 RATIO 2.1 RATIO Ratio Activated Partial 52.2 SEC Thromboplast Time (24.3-30.1) Direct Bilirubin 13.2 MG/DL (0.0-0.2) Indirect Bilirubin 2.7 MG/DL (0.0-0.8) Nasal Screen MRSA (PCR) NEGATIVE (NEGATIVE) Test 10/21/16 06:05 White Blood Count 20.6 TH/MM3 (4.0-11.0) Red Blood Count 4.21 MIL/MM3 (4.50-5.90) Hemoglobin 13.4 GM/DL (13.0-17.0) Hematocrit 39.6 % (39.0-51.0) Mean Corpuscular Volume 94.1 FL (80.0-100.0) Mean Corpuscular Hemoglobin 31.8 PG (27.0-34.0) Mean Corpuscular Hemoglobin 33.8 % Concent (32.0-36.0) Red Cell Distribution Width 17.4 % (11.6-17.2) Platelet Count 160 TH/MM3 (150-450) Mean Platelet Volume 9.3 FL (7.0-11.0) Neutrophils (%) (Auto) 91.0 % (16.0-70.0) Lymphocytes (%) (Auto) 3.4 % (9.0-44.0) Monocytes (%) (Auto) 5.2 % (0.0-8.0) Eosinophils (%) (Auto) 0.1 % (0.0-4.0) Basophils (%) (Auto) 0.3 % (0.0-2.0) Neutrophils # (Auto) 18.7 TH/MM3 (1.8-7.7) Lymphocytes # (Auto) 0.7 TH/MM3 (1.0-4.8) Monocytes # (Auto) 1.1 TH/MM3 (0-0.9) Eosinophils # (Auto) 0.0 TH/MM3 (0-0.4) Basophils # (Auto) 0.1 TH/MM3 (0-0.2) CBC Comment AUTO DIFF Differential Total Cells 100 Counted Neutrophils % (Manual) 85 % (16-70) Band Neutrophils % 5 % (0-6) Lymphocytes % 4 % (9-44) Monocytes % 6 % (0-8) Neutrophils # (Manual) 18.5 TH/MM3 (1.8-7.7) Differential Comment FINAL DIFF MANUAL Platelet Estimate NORMAL (NORMAL) Platelet Morphology Comment CLUMPED (NORMAL) Target Cells 1+ (NORMAL) Prothrombin Time 21.2 SEC (9.8-11.6) Prothromb Time International 1.9 RATIO Ratio Activated Partial 54.3 SEC Thromboplast Time (24.3-30.1) Total Bilirubin 20.1 MG/DL (0.2-1.0) Direct Bilirubin 15.5 MG/DL (0.0-0.2) Indirect Bilirubin 4.6 MG/DL (0.0-0.8) Aspartate Amino Transf 787 U/L (15-37) (AST/SGOT) Alanine Aminotransferase 189 U/L (12-78) (ALT/SGPT) Alkaline Phosphatase 882 U/L (45-117) Total Protein 5.3 GM/DL (6.4-8.2) Albumin 1.9 GM/DL (3.4-5.0) (DEVORA MENESES) Result Diagram: 10/21/16 0605 10/20/16 0714 Microbiology Microbiology Date/Time Procedure Status Source Growth 10/21/16 11:42 Aerobic Blood Culture Received Blood Peripheral Pending 10/21/16 11:42 Anaerobic Blood Culture Received Blood Peripheral Pending 10/17/16 15:50 Gram Stain - Final Complete Fluid Peritoneal Fluid 10/17/16 15:50 Body Fluid Culture - Final Complete Fluid Peritoneal Fluid NO GROWTH IN 72 HRS.--AEROBICALLY OR ... Imaging Last Impressions Cholangiopancreatography MRI 10/18/16 0000 Signed Impressions: Service Date/Time: Tuesday, October 18, 2016 20:48 - CONCLUSION: 1. Multiple enhancing lesions throughout the liver characteristic for diffuse liver metastatic disease. 2. No evidence of gallstones or biliary tract obstruction. 3. There is thickening of the gallbladder wall suggestive of chronic gallbladder disease. 4. There is diffuse para-aortic adenopathy suspicious for neoplastic disease. 5. There is ascites in the upper abdomen. Zhou Alejandra MD Brain MRI 10/18/16 0000 Signed Impressions: Service Date/Time: Tuesday, October 18, 2016 11:45 - CONCLUSION: 1. Negative examination. Phi Anne MD Cyst Biopsy Asp-Paracentesis US 10/17/16 0000 Signed Impressions: Service Date/Time: Monday, October 17, 2016 08:42 - CONCLUSION: Uncomplicated ultrasound guided paracentesis. Ten Loyola MD Chest X-Ray 10/16/16 1157 Signed Impressions: Service Date/Time: Sunday, October 16, 2016 12:48 - CONCLUSION: Mild streaky opacity at both lung bases with no focal consolidation. This may represent atelectasis and/or scarring. Jayson Fernandez MD Chest CT 10/16/16 0000 Signed Impressions: Service Date/Time: Sunday, October 16, 2016 21:19 - CONCLUSION: 1. Minimal bibasilar consolidation in a somewhat linear configuration could be minimal infiltrate versus atelectasis. 2. Benign-appearing nodules right lung. Followup CT chest in 6-12 months. 3. Abdominal ascites. Isaak Jo MD Abdomen/Pelvis CT 10/16/16 0000 Signed Impressions: Service Date/Time: Sunday, October 16, 2016 15:31 - CONCLUSION: 1. The liver is enlarged and inhomogeneous with several ill-defined low attenuation masslike areas which are nonspecific but concerning for metastatic disease especially given the adenopathy. The liver margin is mildly lobular and this could indicate cirrhosis. 2. Retroperitoneal adenopathy. 3. Moderate amount of ascitic fluid. 4. Nonspecific, nonobstructive bowel gas pattern most consistent with a mild ileus. 5. Mild diverticulosis. 6. Consolidation in both lung bases with air bronchograms. Jayson Fernandez MD (DEVORA MENESES) Patient/Family Conference Present at Family Conference: Met with patient, Socorro (sister) and Katina (mother). Family Conference Time (mins): 90 Family Conference Location: Bedside Issues Discussed: * Palliative care role, purpose, approach * Additional medical, psychosocial, and spiritual history * Patients general health, functional status, and cognitive changes in the months leading up to the current hospitalization * Patient/family understanding of the current medical problems * Patient/family understanding of prognosis * Patients goals of care as best understood from advance directives and/or conversations and/or values * Current medical treatment options and benefits/burdens of those options * Likely scenarios comparing ongoing aggressive care with a transition to comfort measures only * Questions answered to the best of my ability * Palliative care contact information provided (DEVORA MENESES) Assessment and Plan Disease Oriented Problem List: (1) Liver masses (2) Lymphadenopathy (3) Ascites (4) PNA (pneumonia) (5) SENG (acute kidney injury) (6) HIV (human immunodeficiency virus infection) (7) Hypoxia (8) Encephalopathy (9) Coagulopathy Symptom Scale: (1) Confusion 0-10 Scale: Unable to quantify Comment: intermittent (2) Decreased appetite 0-10 Scale: Unable to quantify Comment: albumin 1.9 (3) Lethargy 0-10 Scale: Unable to quantify (4) Restlessness 0-10 Scale: Unable to quantify (5) Weakness 0-10 Scale: Unable to quantify Pertinent Non-Medical Issues Psychosocial: Single. Lives with his mother. Supported by his mother and sister. Spiritual:Sabianism eleonora. Legal: Designated his sister, Socorro Hamilton as primary HCS and mother, Katina Epps as alternate HCS. Ethical issues impacting care: No known concerns at this time. . Important Contacts * Socorro Aguirre, sister/primary HCS: [phone] * Katina Epps, mother/ alternate HCS: [phone] . Prognosis Mr. Epps is a 56-year-old male with HIV, metastatic disease of uncertain origin , clinically appears septic with worsening renal and hepatic function, likely hepatorenal failure. Overall prognosis appears poor. Code Status: No Code Plan * Recommend shared decision making as patient is encephalopathic with some confusion and lethargy. Designated his sister, Socorro Hamilton as primary HCS and mother, Katina Epps as alternate HCS. * NO CODE - will need [place] DNR on DC. * Palliative care met with patient/ family:Patient supported by his family elect NO CODE. They have requested to meet with hospice in hopes to bring pt to [facility] vs home with hospice in the coming day(s). Patient and family understand the reality of his limited life expectancy and that he is not a candidate for chemotherapy. They speak openly about his illness and are very supportive. They are familiar with hospice as they cared for the patient's father recently. Eating bites and sips. Will likely rapidly decline. Family reports patient DID NOT tolerate Lorazepam well recently. * Spoke with case management assistant Rachel to request a list be provided for hired caregiver agencies at home. * Discussed with Dr. Reeves, Dr. Bueno and nursing staff. * SYMPTOMS: Pain: patient currently denies pain. Dyspnea:denies. Lethargy: secondary to renal and liver failure. Restlessness: due to liver and renal failure,encephalopathy. Confusion: intermittent due to liver and renal failure. * Palliative care number provided. * Palliative care will continue to follow throughout hospital course to assist with symptom management and clarification of goals as needed. . (DEVORA MENESES) Thank you for the opportunity to participate in the care of Mr. Epps. (DEVORA MENESES) Attestation To help prompt me to consider important information that might be impacting today's encounter and assessment, information from prior notes written by myself or my colleagues may have been "brought forward" into today's note. My signature on this note, however, is an attestation that I personally performed the exam, history, and/or decision-making noted today, and, unless otherwise indicated, the interactions with patient, family, and staff as well as the review of records all occurred today. I also attest that the listed assessment and stated plan reflect my best clinical judgment today based on the combination of historical information, prior notes, and today's exam/ interactions. When time spent is documented, it refers only to time spent today by the signer, or if indicated, combined time spent today by collaborating physician/nurse practitioner. (DEVORA MENESES) Collaborating MD Comments . Chart reviewed. Cased discussed with palliative care OUTSIDE INSTALLER APPRENTICE. Above OUTSIDE INSTALLER APPRENTICE note reviewed and I concur. . (David Tello MD) DEVORA MENESES Oct 21, 2016 09:56 David Tello MD December 27, 2016 14:38
[2016-10-21] MEDS: DOPamine INJ PREMIX 500 ML IV SCH (10:42)
[2016-10-21 12:48] LABS: BICARBONATE 13.8 MEQ/L (21.0-32.0); POTASSIUM 5.2 MEQ/L (3.5-5.1)
--- NOTE | 2016-10-21 13:21 | PD.ONC.PN ---
Subjective Subjective Remarks Afebrile overnight. patient transferred to [facility] overnight. His mother and sister are at the bedside. He wants to go home with hospice. Hospice has been consulted and they are waiting to set up care at home. Objective Data Date Time Temp Pulse Resp B/P Pulse Ox O2 Delivery O2 Flow Rate FiO2 10/21/16 12:00 79 10/21/16 12:00 98.2 79 22 91/55 94 10/21/16 11:16 91 Nasal Cannula 5.00 10/21/16 10:00 78 10/21/16 08:27 20 10/21/16 08:00 80 10/21/16 08:00 98.6 80 24 147/82 91 10/21/16 04:00 98.4 81 23 94/51 91 10/21/16 00:00 98.2 81 19 87/52 91 10/20/16 20:15 92 Simple Mask 10.00 10/20/16 20:00 98.0 72 49 75/44 90 10/20/16 18:50 97 Nasal Cannula 2 10/20/16 18:45 69 12 83/39 97 10/20/16 18:30 69 12 79/33 96 10/20/16 18:15 66 12 59/34 96 10/20/16 18:00 82 12 66/37 96 10/20/16 17:45 67 12 62/34 97 10/20/16 17:30 66 12 59/36 97 10/20/16 17:15 68 12 67/36 96 10/20/16 17:00 66 12 65/33 93 10/20/16 16:45 82 12 63/30 94 10/20/16 16:30 71 12 60/35 93 10/20/16 16:30 93 Nasal Cannula 2 10/21/16 10/21/16 10/21/16 07:00 15:00 23:00 Intake Total 1170 ml Output Total 240 ml Balance 930 ml Result Diagram: 10/21/16 0605 10/21/16 1128 Laboratory Results Laboratory Tests Test 10/20/16 10/20/16 10/21/16 10/21/16 13:30 19:10 06:05 11:28 Prothrombin Time 24.0 SEC 21.2 SEC Prothromb Time International 2.1 RATIO 1.9 RATIO Ratio Nasal Screen MRSA (PCR) NEGATIVE White Blood Count 20.6 TH/MM3 Red Blood Count 4.21 MIL/MM3 Hemoglobin 13.4 GM/DL Hematocrit 39.6 % Mean Corpuscular Volume 94.1 FL Mean Corpuscular Hemoglobin 31.8 PG Mean Corpuscular Hemoglobin 33.8 % Concent Red Cell Distribution Width 17.4 % Platelet Count 160 TH/MM3 Mean Platelet Volume 9.3 FL Neutrophils (%) (Auto) 91.0 % Lymphocytes (%) (Auto) 3.4 % Monocytes (%) (Auto) 5.2 % Eosinophils (%) (Auto) 0.1 % Basophils (%) (Auto) 0.3 % Neutrophils # (Auto) 18.7 TH/MM3 Lymphocytes # (Auto) 0.7 TH/MM3 Monocytes # (Auto) 1.1 TH/MM3 Eosinophils # (Auto) 0.0 TH/MM3 Basophils # (Auto) 0.1 TH/MM3 CBC Comment AUTO DIFF Differential Total Cells 100 Counted Neutrophils % (Manual) 85 % Band Neutrophils % 5 % Lymphocytes % 4 % Monocytes % 6 % Neutrophils # (Manual) 18.5 TH/MM3 Differential Comment FINAL DIFF MANUAL Platelet Estimate NORMAL Platelet Morphology Comment CLUMPED Target Cells 1+ Activated Partial 54.3 SEC Thromboplast Time Total Bilirubin 20.1 MG/DL Direct Bilirubin 15.5 MG/DL Indirect Bilirubin 4.6 MG/DL Aspartate Amino Transf 787 U/L (AST/SGOT) Alanine Aminotransferase 189 U/L (ALT/SGPT) Alkaline Phosphatase 882 U/L Total Protein 5.3 GM/DL Albumin 1.9 GM/DL Sodium Level 134 MEQ/L Potassium Level 5.2 MEQ/L Chloride Level 101 MEQ/L Carbon Dioxide Level 13.8 MEQ/L Anion Gap 19 MEQ/L Blood Urea Nitrogen 153 MG/DL Creatinine 4.99 MG/DL Estimat Glomerular Filtration 12 ML/MIN Rate Random Glucose 124 MG/DL Calcium Level 6.4 MG/DL Culture Results Microbiology Date/Time Procedure Status Source Growth 10/21/16 11:28 Aerobic Blood Culture Received Blood Peripheral Pending 10/21/16 11:28 Anaerobic Blood Culture Received Blood Peripheral Pending 10/21/16 11:42 Aerobic Blood Culture Received Blood Peripheral Pending 10/21/16 11:42 Anaerobic Blood Culture Received Blood Peripheral Pending Administered Medications Medications (Trade) Dose Ordered Sig/Elisa Route PRN Reason Start Time Stop Time Status Last Admin Dose Admin Budesonide/ Formoterol Fumarate (Symbicort 160-4.5 Inh) 2 puff Q12HR INH 10/16/16 21:00 10/20/16 10:03 Guaifenesin 600 mg 600 mg BID PO 10/16/16 21:00 Hold 10/20/16 09:56 Azithromycin/ Sodium Chloride (Zithromax Inj/ NS 250 ml Inj) 250 ml @ 250 mls/hr Q24H IV 10/16/16 21:00 10/20/16 20:36 Lactulose (Lactulose Liq) 30 ml QID PO 10/16/16 21:00 10/21/16 13:10 IV Flush (NS Flush) 2 ml BID FLUSH 10/16/16 21:00 10/21/16 08:17 Oxycodone HCl (Roxicodone) 5 mg Q4H PRN PO PAIN SCALE 3 TO 5 10/16/16 19:30 Hold 10/17/16 18:43 Efavirenz (Sustiva) 600 mg HS PO 10/16/16 21:00 Hold 10/19/16 20:39 Tamsulosin HCl (Flomax) 0.4 mg HS PO 10/16/16 21:00 Hold 10/19/16 20:40 Valacyclovir HCl (Valtrex) 1,000 mg DAILY PO 10/17/16 09:00 Hold 10/20/16 09:00 Patient Own Medication PT OWN MED: DESCOVY (EMTRICITABINE-TENO... DAILY PO 10/17/16 09:00 Hold 10/20/16 09:59 Propranolol HCl (Inderal) 10 mg Q12HR PO 10/16/16 21:15 Hold 10/18/16 22:16 Phytonadione (Mephyton) 5 mg DAILY PO 10/20/16 09:00 10/21/16 08:17 Albumin Human 12.5 gm 12.5 gm Q12H IV 10/20/16 09:00 10/21/16 08:16 Dextrose/Sodium Chloride 1,000 ml @ 100 mls/hr Q10H IV 10/20/16 10:21 10/20/16 20:37 Cefepime HCl 2000 mg/Sodium Chloride 100 ml @ 200 mls/hr DAILY@18 IV 10/20/16 18:00 10/20/16 18:00 Dopamine HCl/ Dextrose (DOPamine INJ PREMIX) 500 ml @ 10.305 mls/ hr TITRATE IV 10/20/16 20:30 10/21/16 10:42 Miscellaneous Information Patient in critical care unit? Ass... [id number] XX 10/20/16 20:45 10/20/16 20:45 Chlorhexidine Gluconate (Chlorhexidine 2% Cloth) 3 pack DAILY@04 TOP 10/21/16 04:00 10/25/16 04:01 10/21/16 03:00 Morphine Sulfate (Morphine Inj) 1 mg Q3H PRN IV PUSH pain >5 10/21/16 03:00 10/21/16 08:18 Objective Remarks GENERAL: Severely jaundiced male, lying in bed resting. SKIN: Warm and dry. HEAD: Normocephalic. EYES: No injection or drainage. NECK: Supple, trachea midline. CARDIOVASCULAR: Regular rate and rhythm RESPIRATORY: anterior vyas on occasional rhonchi. On 5L O2 via NC GASTROINTESTINAL: Abdomen mildly distended with ascites. EXTREMITIES: No cyanosis NEUROLOGICAL: awake, normal speech. moving all extremities. Assessment/Plan Problem List: (1) Liver masses Status: Acute Plan: 10/21: patient has chosen hospice, he will be discharged home with hospice care sometime later today. d/w patient, sister and mother prognosis, questions answered. emotional support provided. --CT ab/pelvis shows liver is enlarged and inhomogeneous with several ill- defined low attenuation mass-like areas which are nonspecific but concerning for metastatic disease, especially given the lymphadenopathy. The liver margin is mildly lobular and could indicate cirrhosis. +retroperitoneal lymphadenopathy. --CT chest minimal bibasilar consolidation in a somewhat linear configuration which could be minimal infiltrate versus atelectasis. --s/p diagnostic and therapeutic paracentesis by interventional radiology (2) Coagulopathy Status: Acute Plan: --due to liver cirrhosis --on PO Vitamin K 5mg daily Assessment 56y/o male with multiple liver masses. h/o HIV positive for the last 7 years. Homosexual. Hypertension. Hypercholesterolemia. History of shingles. Benign prostate hypertrophy. Attending Statement doing very poorly moved to ICU Bilirubin continues to rise. Hepatic encephalopathy. recommend hospice. d/w palliative care Samantha Sinclair Oct 21, 2016 13:21 Kathy Reeves MD Oct 21, 2016 23:19
[2016-10-21 13:27] LABS: CALCIUM-PROTEIN CORRECTED 7.1 MG/DL (8.5-10.1)
--- NOTE | 2016-10-21 13:38 | MB ---
cc: ADONAY BUENO MD DATE OF CONSULTATION 10/21/[address] Meyers. REASON A 56-year-old male with history of HIV and right upper quadrant pain, found to have liver mets and went into hepatic and renal failure. Clinical signs of sepsis. HISTORY OF PRESENT ILLNESS This is a 56-year-old white male who was admitted to the hospital on October 16 with confusion and hypoxia. The patient has HIV disease and is followed by Dr. Evans who is an HIV specialist. He has been managed for HIV disease and was stable on medications. He presented early in the month with abdominal pain which had been going on for a couple of weeks and he had also constipation and was evaluated as an outpatient by Dr. Evans and a PICC line was inserted for IV nutrition. The abdominal pain was noted to be severe in intensity. The patient was noted to not be sleeping because of the pain and he had to take a leave from work also as a result. He was evaluated by Dr. Evans on 10/04/2016. The patient presented to [facility] on 10/16 with respiratory distress. He was also complaining of confusion x 1 week 04/01 with confusion x 1 week and became short of breath over the few days prior to presenting. He had previous liver ultrasound which was noted to have two masses on the liver. He was due to have an MRI in the morning when he presented but he was unable to complete that test. He had complaints of right upper quadrant abdominal pain on presentation as well. Further evaluation was performed and the patient was found to have an enlarged liver with inhomogeneous, ill-defined low-attenuation mass-like areas which are concerning for metastatic disease. He was also noted to have retroperitoneal adenopathy and a moderate amount of ascitic fluid and nonobstructive bowel gas pattern consistent with mild ileus and there was also consolidation in both lung bases with air bronchograms. The patient has been evaluated by Oncology. He was due to undergo a biopsy of the lymph node yesterday but he became hypotensive while waiting for that procedure and he also became confused and the procedure was cancelled. He has markedly elevated liver function tests and also markedly elevated white count which was 20,000 today. It was 16.6 yesterday. He also has worsening renal function with a creatinine today of 3.68 and estimated GFR of 17 which has deteriorated. When he was admitted, his creatinine was 2.48. The patient is very restless. He is uncomfortable just laying in bed and he states that he feels very tired and sleepy but he arouses very easily and tries to stay awake during the interview and examination. He denies pain. He denies chills, itching, shortness of breath, nausea, diarrhea. He has been afebrile since admission. This consultation is requested because of concern for sepsis given the hypotension and elevated white blood cell count. The patient fell on the morning before he presented to the emergency department. He has been treated for HIV disease and has been reported to be stable. His CD-4 count is 401. His viral load was noted to be undetectable. Blood culture has been taken today. Peritoneal fluid from the paracentesis on 10/17 had no growth. Urinalysis from 10/18 had 4 white cells and culture was not indicated. The chest x-ray from 10/16 showed streaky opacity at both lung bases and no focal consolidation. The patient had no sputum production. A cholangiopancreatography MRI on and 10/18 showed multiple enhancing lesions throughout the liver characteristic of diffuse liver metastases. There was no evidence of gallstones or biliary tract obstruction. There was thickening of the gallbladder with wall which suggested chronic gallbladder disease. There was diffuse para-aortic adenopathy suspicious for neoplastic disease and there was ascites in the upper abdomen. The patient denies any significant weight loss except for having lost some weight over the past three weeks. His appetite is very poor. PAST MEDICAL HISTORY 1. HIV disease on HAART. 2. Hypertension. 3. Hyperlipidemia. 4. BPH. 5. Shingles. 6. Colonoscopy with removal of colon polyps. ALLERGIES LEVAQUIN. MEDICATIONS 1. Cefepime. 2. Morphine sulfate p.r.n. 3. Dopamine. 4. Albumin. 5. Azithromycin. 6. Lactulose. SOCIAL HISTORY No tobacco use. No alcohol use. No illicit drug use. The patient is homosexual. FAMILY HISTORY Noncontributory. REVIEW OF SYSTEMS Pertinent as mentioned above in the History of Present Illness. GENERAL: No fever or chills. HEAD, EYES, EARS, NOSE, AND THROAT: No visual blurring or diplopia. No nose bleeding. No difficulty swallowing. Decreased appetite. NECK: No swelling or pain. CARDIOVASCULAR: No palpitation or chest pain. RESPIRATORY: Positive for shortness of breath. No cough or sputum production. GASTROINTESTINAL: Significant for constipation, abdominal pain, diarrhea. GENITOURINARY: No urgency, frequency, dysuria. HEMOPOIETIC: He reports no easy bruising or bleeding. INTEGUMENTARY: No skin rash. NEUROLOGIC: No problems with coordination or headaches. PHYSICAL EXAMINATION GENERAL: This is a well-developed who is profoundly jaundiced. He is awake and alert, though he appears lethargic. VITAL SIGNS: Temperature of 98.2, BP is 105/55, respirations 20, heart rate 80. HEENT: The head is atraumatic. Extraocular movements grossly intact, pupils reactive to light. Positive icterus. No conjunctival erythema. Oropharynx - No visible lesions and no thrush. Mucosa is moist. NECK: Supple. Positive right anterior cervical adenopathy. LUNGS: Clear breath sounds which are diminished throughout. HEART: Regular rate and rhythm. No audible murmurs or rubs or gallops. ABDOMEN: Bowel sounds present. Abdomen is firm. No tenderness. No palpable mass. RECTAL: Not performed. EXTREMITIES: No clubbing, cyanosis or edema. SKIN: Severe jaundice. NEURO: Nonfocal. PSYCH: The patient is calm and cooperative. LABORATORY DATA WBC 20.6, platelet count 91,000, hemoglobin 13.4. Creatinine 3.68, BUN 141, sodium 135. Total bilirubin 20.1, AST 787, ALT 189, alk phos 82. IMPRESSION 1. HIV disease. 2. Hepatic failure. 3. Acute renal failure. 4. Suspected malignancy with liver metastases. 5. Hypotension and elevated white blood cell count suggesting sepsis. However, the patient is afebrile. It is unclear whether he does indeed have sepsis at this point. The elevated white blood cell count could be reactive to the underlying malignancy process. RECOMMENDATIONS 1. Follow the blood cultures and treat depending on the results. It may be a couple of days before we can be certain whether he does have sepsis based on blood cultures findings. 2. Continue Cefepime which is adjusted because of his renal function. 3. Monitor the white blood cell count and also monitor the blood pressure. The patient has been meeting with Palliative Care and it appears that he may elect to transition to Hospice. At this point, given the severity of his illness, I think the HIV medications can be put on hold. He appears to be very restless and given his liver function abnormalities, medication effect can also be at play in contributing to the restlessness. Thank you for this consultation. The plans have been discussed with the patient's mother and sister at bedside. Given the severity of his illness, it does appear reasonable to consider hospice. Adonay Bueno MD FD/SSB /12:34 PM /1:11 PM [email or web address]
--- NOTE | 2016-10-21 13:56 | HHI.PR ---
Subjective Remarks f/u hypotension, liver mets, hepatic and renal failure. patient able to have conversation with me. He denied any SOB but looks very ills. He was on a mask now but that has been weaned off. Dopamine gtt was started last night. His sister is at the bed side. patient has no complaints and he is asking if he can sleep. Objective Vitals Vital Signs Date Time Temp Pulse Resp B/P Pulse Ox O2 Delivery O2 Flow Rate FiO2 10/21/16 12:00 79 10/21/16 12:00 98.2 79 22 91/55 94 10/21/16 11:16 91 Nasal Cannula 5.00 10/21/16 10:00 78 10/21/16 08:27 20 10/21/16 08:00 80 10/21/16 08:00 98.6 80 24 147/82 91 10/21/16 04:00 98.4 81 23 94/51 91 10/21/16 00:00 98.2 81 19 87/52 91 10/20/16 20:15 92 Simple Mask 10.00 10/20/16 20:00 98.0 72 49 75/44 90 10/20/16 18:50 97 Nasal Cannula 2 10/20/16 18:45 69 12 83/39 97 10/20/16 18:30 69 12 79/33 96 10/20/16 18:15 66 12 59/34 96 10/20/16 18:00 82 12 66/37 96 10/20/16 17:45 67 12 62/34 97 10/20/16 17:30 66 12 59/36 97 10/20/16 17:15 68 12 67/36 96 10/20/16 17:00 66 12 65/33 93 10/20/16 16:45 82 12 63/30 94 10/20/16 16:30 71 12 60/35 93 10/20/16 16:30 93 Nasal Cannula 2 I/O 10/20/16 10/20/16 10/20/16 10/21/16 10/21/16 10/21/16 07:00 15:00 23:00 07:00 15:00 23:00 Intake Total 120 ml 740 ml 1170 ml Output Total 250 ml 240 ml Balance 120 ml 490 ml 930 ml Intake Oral 120 ml 240 ml 240 ml IV Total 500 ml 930 ml Output Urine Total 250 ml 240 ml # Voids 5 # Bowel Movements 4 1 1 Result Diagram: 10/21/16 0605 10/21/16 1128 Objective Remarks GENERAL: in mild respiratory distress and ill with jaundice/sclera icterus CARDIOVASCULAR: Regular rate and rhythm without murmurs, gallops, or rubs. RESPIRATORY: Breath sounds equal bilaterally. No accessory muscle use. GASTROINTESTINAL: Abdomen soft, non-tender, + distended. no TTP. MUSCULOSKELETAL: No cyanosis, or edema. BACK: Nontender without obvious deformity. No CVA tenderness. Medications and IVs Reported Meds & Active Scripts Active Reported Potassium Chloride ER (Potassium Chloride) 20 Meq Tab 20 Meq PO BID Descovy (Emtricitabine-Tenofovir Alafenamide) 200-25 mg Tab 1 Tab PO DAILY Sustiva (Efavirenz) 600 Mg Tab 600 Mg PO HS Flomax (Tamsulosin HCl) 0.4 Mg Cap 0.4 Mg PO HS Crestor (Rosuvastatin Calcium) 10 Mg Tab 10 Mg PO HS Amlodipine (Amlodipine Besylate) 10 Mg Tab 10 Mg PO HS Valtrex (Valacyclovir HCl) 1 Gm Tab 1,000 Mg PO DAILY Clonidine (Clonidine HCl) 0.2 Mg Tab 0.2 Mg PO HS Zofran (Ondansetron HCl) 4 Mg Tab 4 Mg PO Q6HR PRN Ecotrin Low Strength (Aspirin) 81 Mg Tabdr 81 Mg PO DAILY Hydrochlorothiazide 25 Mg Tab 25 Mg PO DAILY Lisinopril 40 Mg Tab 40 Mg PO DAILY A/P Problem List: (1) Encephalopathy ICD Code: G93.40 Status: Acute (2) Liver masses ICD Code: R16.0 Status: Acute (3) Ascites ICD Code: R18.8 Status: Acute (4) Coagulopathy ICD Code: D68.9 Status: Acute (5) PNA (pneumonia) ICD Code: J18.9 Status: Acute (6) Hypoxia ICD Code: R09.02 Status: Acute (7) HIV (human immunodeficiency virus infection) ICD Code: Z21 Status: Acute (8) SENG (acute kidney injury) ICD Code: N17.9 Status: Acute Assessment and Plan Hepatic Encephalopathy -Secondary to new onset cirrhosis/liver masses. Intermittent confusion. Ammonia elevated at 48, s/p Lactulose - continue w/ Lactulose qid. Hypotension -due to severe liver disease and ARF. -patient multiple IVFs bolus yesterday night and now on pressor with dopamine gtt. -he is being treated empirically for sepsis but there is no infectious source. see below. SIRS -+ leukocytosis, increase R. afebrile. -treating empirically for sepsis. on cefepime renally dose. -blood cultures obtains. - Infectious disease consulted. Liver Masses - newly diagnosed liver masses via outpatient US approx 1 wk ago per patient, CT Abd/Pelvis w/ enlarged liver and several masslike areas concerning for metastatic disease, cirrhosis, retroperitoneal adenopathy and moderate ascites - Oncology consulted and appreciate recommendation. patient will cervical lymph node biopsy by surgery tomorrow. -MRCP showed by multiple enhancing lesions throughout the liver characteristic for diffuse liver metastatic disease, there is thickening of the gallbladder wall suggestive of chronic gallbladder, there is diffuse para-aortic adenopathy suspicious for neoplastic disease and here is ascites in the upper abdomen. -LFT increasing but most likely due to mets. -GI ff. -INR increasing and heme/onc gave vitamin K. -VERY POOR PROGNOSIS. unable to get biopsy due to hypotension. ARF -worsening. -train inspector on board who stated can be hepatorenal vs ATN. -continue to monitor. strict i/o. patient is making urine. -avoid nephrotoxins. Ascites -secondary to above. New Onset. CT Abd/Pelvis w/ moderate ascites -on Propranolol and Aldactone-caution w/ renal insufficiency but that was held due to hypotension. -GI consulted. pending culture. Elevated LFTs -continues increasing. -due to liver mets. -hepatitis panel negative. Coagulopathy - secondary to cirrhosis/liver masses, INR 1.8 now, no active bleeding at this time. -continue to monitor -s/p Vit K by polls or surveys interviewer. PNA - CXR w/ bilateral basilar streaky opacities, CT Abd/Pelvis w/ bilateral consolidations at bases w/ air bronchograms -on cefepime/Zithro, DuoNeb prn. rocephin d/c on due to adding cefepime for increase coverage. Hypoxia - Transient, resolved. Multifactorial-orthopnea due to ascites and PNA. O2 sat currently 98% on 5L NC. HIV - CD4 40. DVT Prophylaxis: Pharmacologic contraindication secondary to coagulopathy. Discharge Planning Very poor prognosis. spent extensive time with sister at bedside. patient was too sleepy and weak to hear discussion. Nurse at the bedside. She wants to speak with palliative care before making final decision. Also asked for patient to be DNR. Lois Meyers MD Oct 21, 2016 13:56
--- NOTE | 2016-10-21 14:44 | HHI.GIFU ---
Subjective Remarks Patient was not stable to have lymph node biopsy yesterday. His condition has worsened and he is currently on a dopamine drip. His family is at the bedside. The patient and his family report that they would like for him to go home with hospice, but they are waiting a consult with the hospice nurse to determine if they would have resources to help him at home versus possible admission to the care center. He denies any pain. He does not have an appetite. (Ghazal Crockett) Objective Vitals I&O Vital Signs Date Time Temp Pulse Resp B/P Pulse Ox O2 Delivery O2 Flow Rate FiO2 10/21/16 12:00 79 10/21/16 12:00 98.2 79 22 91/55 94 10/21/16 11:16 91 Nasal Cannula 5.00 10/21/16 10:00 78 10/21/16 08:27 20 10/21/16 08:00 80 10/21/16 08:00 98.6 80 24 147/82 91 10/21/16 04:00 98.4 81 23 94/51 91 10/21/16 00:00 98.2 81 19 87/52 91 10/20/16 20:15 92 Simple Mask 10.00 10/20/16 20:00 98.0 72 49 75/44 90 10/20/16 18:50 97 Nasal Cannula 2 10/20/16 18:45 69 12 83/39 97 10/20/16 18:30 69 12 79/33 96 10/20/16 18:15 66 12 59/34 96 10/20/16 18:00 82 12 66/37 96 10/20/16 17:45 67 12 62/34 97 10/20/16 17:30 66 12 59/36 97 10/20/16 17:15 68 12 67/36 96 10/20/16 17:00 66 12 65/33 93 10/20/16 16:45 82 12 63/30 94 10/20/16 16:30 71 12 60/35 93 10/20/16 16:30 93 Nasal Cannula 2 I/O 10/20/16 10/20/16 10/20/16 10/21/16 10/21/16 10/21/16 07:00 15:00 23:00 07:00 15:00 23:00 Intake Total 120 ml 740 ml 1170 ml Output Total 250 ml 240 ml Balance 120 ml 490 ml 930 ml Intake Oral 120 ml 240 ml 240 ml IV Total 500 ml 930 ml Output Urine Total 250 ml 240 ml # Voids 5 # Bowel Movements 4 1 1 Laboratory Laboratory Tests Test 10/20/16 10/21/16 10/21/16 19:10 06:05 11:28 Nasal Screen MRSA (PCR) NEGATIVE White Blood Count 20.6 Red Blood Count 4.21 Hemoglobin 13.4 Hematocrit 39.6 Mean Corpuscular Volume 94.1 Mean Corpuscular Hemoglobin 31.8 Mean Corpuscular Hemoglobin 33.8 Concent Red Cell Distribution Width 17.4 Platelet Count 160 Mean Platelet Volume 9.3 Neutrophils (%) (Auto) 91.0 Lymphocytes (%) (Auto) 3.4 Monocytes (%) (Auto) 5.2 Eosinophils (%) (Auto) 0.1 Basophils (%) (Auto) 0.3 Neutrophils # (Auto) 18.7 Lymphocytes # (Auto) 0.7 Monocytes # (Auto) 1.1 Eosinophils # (Auto) 0.0 Basophils # (Auto) 0.1 CBC Comment AUTO DIFF Differential Total Cells 100 Counted Neutrophils % (Manual) 85 Band Neutrophils % 5 Lymphocytes % 4 Monocytes % 6 Neutrophils # (Manual) 18.5 Differential Comment FINAL DIFF MANUAL Platelet Estimate NORMAL Platelet Morphology Comment CLUMPED Target Cells 1+ Prothrombin Time 21.2 Prothromb Time International 1.9 Ratio Activated Partial 54.3 Thromboplast Time Total Bilirubin 20.1 Direct Bilirubin 15.5 Indirect Bilirubin 4.6 Aspartate Amino Transf 787 (AST/SGOT) Alanine Aminotransferase 189 (ALT/SGPT) Alkaline Phosphatase 882 Total Protein 5.3 5.7 Albumin 1.9 Sodium Level 134 Potassium Level 5.2 Chloride Level 101 Carbon Dioxide Level 13.8 Anion Gap 19 Blood Urea Nitrogen 153 Creatinine 4.99 Estimat Glomerular Filtration 12 Rate Random Glucose 124 Calcium Level 6.4 Protein Corrected Calcium 7.1 Date/Time Procedure Status Source Growth 10/21/16 11:42 Aerobic Blood Culture Received Blood Peripheral Pending 10/21/16 11:42 Anaerobic Blood Culture Received Blood Peripheral Pending 10/17/16 15:50 Gram Stain - Final Complete Fluid Peritoneal Fluid 10/17/16 15:50 Body Fluid Culture - Final Complete Fluid Peritoneal Fluid NO GROWTH IN 72 HRS.--AEROBICALLY OR ... Imaging Last Impressions Cholangiopancreatography MRI 10/18/16 0000 Signed Impressions: Service Date/Time: Tuesday, October 18, 2016 20:48 - CONCLUSION: 1. Multiple enhancing lesions throughout the liver characteristic for diffuse liver metastatic disease. 2. No evidence of gallstones or biliary tract obstruction. 3. There is thickening of the gallbladder wall suggestive of chronic gallbladder disease. 4. There is diffuse para-aortic adenopathy suspicious for neoplastic disease. 5. There is ascites in the upper abdomen. Zhou Alejandra MD Brain MRI 10/18/16 0000 Signed Impressions: Service Date/Time: Tuesday, October 18, 2016 11:45 - CONCLUSION: 1. Negative examination. Phi Anne MD Cyst Biopsy Asp-Paracentesis US 10/17/16 0000 Signed Impressions: Service Date/Time: Monday, October 17, 2016 08:42 - CONCLUSION: Uncomplicated ultrasound guided paracentesis. Ten Loyola MD Chest X-Ray 10/16/16 1157 Signed Impressions: Service Date/Time: Sunday, October 16, 2016 12:48 - CONCLUSION: Mild streaky opacity at both lung bases with no focal consolidation. This may represent atelectasis and/or scarring. Jayson Fernandez MD Chest CT 10/16/16 0000 Signed Impressions: Service Date/Time: Sunday, October 16, 2016 21:19 - CONCLUSION: 1. Minimal bibasilar consolidation in a somewhat linear configuration could be minimal infiltrate versus atelectasis. 2. Benign-appearing nodules right lung. Followup CT chest in 6-12 months. 3. Abdominal ascites. Isaak Jo MD Abdomen/Pelvis CT 10/16/16 0000 Signed Impressions: Service Date/Time: Sunday, October 16, 2016 15:31 - CONCLUSION: 1. The liver is enlarged and inhomogeneous with several ill-defined low attenuation masslike areas which are nonspecific but concerning for metastatic disease especially given the adenopathy. The liver margin is mildly lobular and this could indicate cirrhosis. 2. Retroperitoneal adenopathy. 3. Moderate amount of ascitic fluid. 4. Nonspecific, nonobstructive bowel gas pattern most consistent with a mild ileus. 5. Mild diverticulosis. 6. Consolidation in both lung bases with air bronchograms. Jayson Fernandez MD Physical Exam HEENT: Normocephalic; atraumatic; + jaundice. CHEST: CTA CARDIAC: RRR. ABDOMEN: Soft, nondistended, nontender; no hepatosplenomegaly; bowel sounds are present in all four quadrants. Ascites. EXTREMITIES: No clubbing, cyanosis, or edema. SKIN: Normal; no rash; + jaundice. HEALTH COORDINATOR: No focal deficits;Lethargic and oriented times three. ([facility]al Crockett [facility]) Assessment and Plan Plan ASSESSMENT: - Jaundice/Elevated LFTs. Abdomen/Pelvis CT (10/16/16)----> 1. The liver is enlarged and inhomogeneous with several ill-defined low attenuation masslike areas which are nonspecific but concerning for metastatic disease especially given the adenopathy. The liver margin is mildly lobular and this could indicate cirrhosis. 2. Retroperitoneal adenopathy. 3. Moderate amount of ascitic fluid. 4. Nonspecific, nonobstructive bowel gas pattern most consistent with a mild ileus. 5. Mild diverticulosis. 6. Consolidation in both lung bases with air bronchograms. MRCP (10/18/16)-----> 1. Multiple enhancing lesions throughout the liver characteristic for diffuse liver metastatic disease. 2. No evidence of gallstones or biliary tract obstruction. 3. There is thickening of the gallbladder wall suggestive of chronic gallbladder disease. 4. There is diffuse para-aortic adenopathy suspicious for neoplastic disease. 5. There is ascites in the upper abdomen. The patient has worsening LFTs. He was not stable enough to have a lymph node biopsy yesterday. Both his renal and liver function is worsening and it is unlikely that he would be a candidate for any type of treatment, even if he was able to get the lymph node biopsy. Palliative care/oncology. The patient and his family report that they would like for him to go on comfort measures only and hopefully be discharged home with hospice. Hospice has been consulted and the family is awaiting a consultation with them to determine if they will have enough support to take him home versus admitting him to hospice care center - Liver mass. CT as above. Tumor markers with AFP 0.9, CEA 5.4, Ca 19-9 83.1. S/P diagnostic paracentesis and fluid was sent for cytology. Pt denies any hx of hepatitis or liver disease, never a drinker. Hepatitis panel negative. Recently had colonoscopy 3 weeks ago and had 2 polyps removed, patient states he was told these were benign. (Pt originally said this was Dr. Reeder, but mother clarified that it was actually Dr. Hines). Oncology following. Patient was not stable Enough to have biopsy yesterday - Abdominal pain. He is not currently having any abdominal pain - Anorexia, Abn. wt. loss. 18 lbs over 2 weeks. - Ascites. S/P Diagnostic paracentesis with removal of 2,600 (10/17). Cytology pending. - Leukocytosis. WBC 16.6. Afebrile. - Coagulopathy, worsening. PT 22.7, INR 2.0. - Acute renal failure, worsening kidney function. Patient has worsening renal function - Hypotension. Started on albumin. - HIV, on HAART therapy. Dx 7 years ago. States that this is well controlled although he does not know his exact numbers. PLAN: - Patient and family have decided on comfort measures would like to go home with hospice - Hospice has been consulted - GI will sign off, please reconsult if needed - Pt seen and examined by Dr. Valencia and myself and this note is written on her behalf (Ghazal Crockett) Physician Comments seen, examined agree with above (Naz Valencia MD) Ghazal Crockett Oct 21, 2016 14:44 Naz Valencia MD Oct 21, 2016 17:29
--- NOTE | 2016-10-21 14:46 | EKG ---
Date Performed: 10/20/2016 Time Performed: 16:16:58 PTAGE: 56 years EKG: Sinus rhythm LOW QRS VOLTAGE IN PRECORDIAL LEADS MODERATE INTRAVENTRICULAR CONDUCTION DELAY MODERATE T-WAVE ABNOR MALITY, CONSIDER ANTEROLATERAL ISCHEMIA ABNORMAL ECG NO PREVIOUS TRACING DOCTOR: Hudson Boykin Interpretating Date/Time 10/21/2016 14:41:42
[2016-10-21] MEDS ORDERED: CALCIUM GLUCONATE INJ 1 GM in SODIUM CHLORIDE 0.9% INJ 100 ML IV ONE (15:00)
[2016-10-21] MEDS ORDERED: HALOPERIDOL LACTATE 5 MG/ML AMP IV PUSH ONE (15:00)
--- NOTE | 2016-10-21 16:48 | RADRPT ---
EXAM DATE/TIME: 10/21/2016 15:50 [facility] COMPARISON: MRCP W & W/O CONTRAST, October 18, 2016, 20:48. INDICATIONS : Evaluate for liver mass biopsy. FINDINGS: Multiple hepatic lesions, the largest in the right hepatic lobe. We have been asked to biopsy. Unfort unately, patient's INR has been above acceptable levels. When patient's INR is below 1.8, please rachid nsult the department for biopsy. CONCLUSION: Elevated INR precludes percutaneous biopsy. Please reconsult the CT department once the INR leve l is below 1.8. Amado Bolaños MD on October 21, 2016 at 16:45 Board Certified Radiologist. This report was verified electronically.
[2016-10-22 13:54] LABS: MITOCHONDRIAL ABS 22.5 U (())
--- NOTE | 2016-12-12 22:30 | HHI.DS ---
Discharge Summary Admission Date Oct 16, 2016 at 16:42 Discharge Date: Oct 21, 2016 Admitting Diagnosis CONFUSION, HYPOXIA (1) Hepatic encephalopathy ICD Code: K72.90 Diagnosis: Principal (2) Liver masses ICD Code: R16.0 Diagnosis: Principal (3) Ascites ICD Code: R18.8 Diagnosis: Principal (4) Coagulopathy ICD Code: D68.9 Diagnosis: Secondary (5) PNA (pneumonia) ICD Code: J18.9 Diagnosis: Principal (6) Hypoxia ICD Code: R09.02 Diagnosis: Principal (7) HIV (human immunodeficiency virus infection) ICD Code: Z21 Diagnosis: Secondary (8) SENG (acute kidney injury) ICD Code: N17.9 Diagnosis: Principal (9) Weakness ICD Code: R53.1 Diagnosis: Principal (10) Hypotension ICD Code: I95.9 Diagnosis: Principal (11) SIRS (systemic inflammatory response syndrome) ICD Code: R65.10 Diagnosis: Principal Procedures see hospital course Brief History - From Admission This is a 56-year-old male with a PMH of HIV on HAART (Unknown CD4), HTN and Hyperlipidemia who was sent to the ER from [facility] secondary to SOB and hypoxia. Per pt he's had ongoing SOB and worsening abdominal distention x2- 3 wks, has been following w/ PCP for symptoms, s/p US w/ apparent liver masses and referred by PCP to [place] for MRI Abd. Was at [place] for MRI today , but had acute onset of severe SOB while lying flat, unable to complete MRI. On arrival, O2 sat 89% on RA, BP 123/81, HR 103, Afebrile. WBC 14.3. Creatinine 2.49, no previous labs for comparison. AST 245, ALT 90, ALP 920. Ammonia 48. CXR w/ mild streaky opacity at lung bases w/ no consolidation. CT Abd/Pelvis w/ enlarged liver and several ill-defined low attenuation masslike areas concerning for metastatic disease, likely cirrhosis, retroperitoneal adenopathy, moderate amount of ascites, mild ileus and bilateral lung base consolidation with air bronchograms. Pt noted to have transient episodes of confusion while in ER. S/p Lactulose in ER. Denies any previous knowledge of liver masses prior to recent ultrasound, quit drinking 2yrs ago. Imaging Last Impressions Consultation 10/20/16 0000 Signed Impressions: Service Date/Time: September 15:50 - CONCLUSION: Elevated INR precludes percutaneous biopsy. Please reconsult the CT department once the INR level is below 1.8. Amado Bolaños MD Cholangiopancreatography MRI 10/18/16 0000 Signed Impressions: Service Date/Time: Tuesday, October 18, 2016 20:48 - CONCLUSION: 1. Multiple enhancing lesions throughout the liver characteristic for diffuse liver metastatic disease. 2. No evidence of gallstones or biliary tract obstruction. 3. There is thickening of the gallbladder wall suggestive of chronic gallbladder disease. 4. There is diffuse para-aortic adenopathy suspicious for neoplastic disease. 5. There is ascites in the upper abdomen. Zhou Alejandra MD Brain MRI 10/18/16 0000 Signed Impressions: Service Date/Time: Tuesday, October 18, 2016 11:45 - CONCLUSION: 1. Negative examination. Phi Anne MD Cyst Biopsy Asp-Paracentesis US 10/17/16 0000 Signed Impressions: Service Date/Time: Monday, October 17, 2016 08:42 - CONCLUSION: Uncomplicated ultrasound guided paracentesis. Ten Loyola MD Chest X-Ray 10/16/16 1157 Signed Impressions: Service Date/Time: Sunday, October 16, 2016 12:48 - CONCLUSION: Mild streaky opacity at both lung bases with no focal consolidation. This may represent atelectasis and/or scarring. Jayson Fernandez MD Chest CT 10/16/16 0000 Signed Impressions: Service Date/Time: Sunday, October 16, 2016 21:19 - CONCLUSION: 1. Minimal bibasilar consolidation in a somewhat linear configuration could be minimal infiltrate versus atelectasis. 2. Benign-appearing nodules right lung. Followup CT chest in 6-12 months. 3. Abdominal ascites. Isaak Jo MD Abdomen/Pelvis CT 10/16/16 0000 Signed Impressions: Service Date/Time: Sunday, October 16, 2016 15:31 - CONCLUSION: 1. The liver is enlarged and inhomogeneous with several ill-defined low attenuation masslike areas which are nonspecific but concerning for metastatic disease especially given the adenopathy. The liver margin is mildly lobular and this could indicate cirrhosis. 2. Retroperitoneal adenopathy. 3. Moderate amount of ascitic fluid. 4. Nonspecific, nonobstructive bowel gas pattern most consistent with a mild ileus. 5. Mild diverticulosis. 6. Consolidation in both lung bases with air bronchograms. Jayson Fernandez MD PE at Discharge GENERAL: in mild respiratory distress and ill with jaundice/sclera icterus CARDIOVASCULAR: Regular rate and rhythm without murmurs, gallops, or rubs. RESPIRATORY: Breath sounds equal bilaterally. No accessory muscle use. GASTROINTESTINAL: Abdomen soft, non-tender, + distended. no TTP. MUSCULOSKELETAL: No cyanosis, or edema. BACK: Nontender without obvious deformity. No CVA tenderness. Hospital Course Hepatic Encephalopathy -Secondary to new onset cirrhosis/liver masses. Intermittent confusion. Ammonia elevated at 48, s/p Lactulose - continue w/ Lactulose qid but worsened throughout hospital course. Hypotension -due to severe liver disease and ARF. -patient received multiple IVFs bolus and was put dopamine gtt. most likely due to hepatic renal disease. -he is being treated empirically for sepsis but there is no infectious source. see below. SIRS -+ leukocytosis, increase R. afebrile. -treating empirically for sepsis. on cefepime renally dose. -blood cultures obtains. - Infectious disease consulted. Liver Masses - newly diagnosed liver masses via outpatient US approx 1 wk ago per patient, CT Abd/Pelvis w/ enlarged liver and several masslike areas concerning for metastatic disease, cirrhosis, retroperitoneal adenopathy and moderate ascites - Oncology consulted and appreciate recommendation. patient will cervical lymph node biopsy by surgery tomorrow. -MRCP showed by multiple enhancing lesions throughout the liver characteristic for diffuse liver metastatic disease, there is thickening of the gallbladder wall suggestive of chronic gallbladder, there is diffuse para-aortic adenopathy suspicious for neoplastic disease and here is ascites in the upper abdomen. -LFT increasing but most likely due to mets. -GI ff. -INR increasing and heme/onc gave vitamin K. -VERY POOR PROGNOSIS. unable to get biopsy due to hypotension. ARF -worsening. -gym teacher on board who stated can be hepatorenal vs ATN. -continue to monitor. strict i/o. patient is making urine. -avoid nephrotoxins. Ascites -secondary to above. New Onset. CT Abd/Pelvis w/ moderate ascites -on Propranolol and Aldactone-caution w/ renal insufficiency but that was held due to hypotension. -GI consulted. pending culture. Elevated LFTs -continues increasing. -due to liver mets. -hepatitis panel negative. Coagulopathy - secondary to cirrhosis/liver masses, INR 1.8 now, no active bleeding at this time. -continue to monitor -s/p Vit K by agent contract clerk. PNA - CXR w/ bilateral basilar streaky opacities, CT Abd/Pelvis w/ bilateral consolidations at bases w/ air bronchograms -on cefepime/Zithro, DuoNeb prn. rocephin d/c on due to adding cefepime for increase coverage. Hypoxia - Transient, resolved. Multifactorial-orthopnea due to ascites and PNA. O2 sat currently 98% on 5L NC. HIV - CD4 40. Patient was clinically deteriorating and due to poor prognosis patient and family decided on hospice. Pt Condition on Discharge: Deteriorating Discharge Disposition: Hospice/Med Facility Discharge Time: > 30 minutes Discharge Instructions DIET: Follow Instructions for: As Tolerated, No Restrictions Activities you can perform: Regular-No Restrictions Lois Meyers MD December 12, 2016 22:30
== END 2016-10-21 18:20 | disposition hospice, home (50) | DRG 441 ==
LOC: NEPA 11:38 → NEDA 16:42 → N04B 22:28 → N03B 10-20 16:23 → HIMN 10-20 18:58
PROVIDERS: ADMIT Hospitalist; ATTEND Hospitalist
PROC: 0W9G3ZZ Drainage of Peritoneal Cavity, Percutaneous Approach (ICD-10-PCS; principal; 2016-10-18)
DX: K72.90 Hepatic failure, unspecified without coma (principal); J18.9 Pneumonia, unspecified organism; B20 Human immunodeficiency virus [HIV] disease; N17.9 Acute kidney failure, unspecified; A41.9 Sepsis, unspecified organism; D68.9 Coagulation defect, unspecified; C78.7 Secondary malignant neoplasm of liver and intrahepatic bile duct; C85.90 Non-Hodgkin lymphoma, unspecified, unspecified site; R18.8 Other ascites; I95.9 Hypotension, unspecified; K74.60 Unspecified cirrhosis of liver; R16.0 Hepatomegaly, not elsewhere classified; R79.89 Other specified abnormal findings of blood chemistry; R09.02 Hypoxemia; I10 Essential (primary) hypertension; E78.5 Hyperlipidemia, unspecified; R59.0 Localized enlarged lymph nodes; N40.0 Benign prostatic hyperplasia without lower urinary tract symptoms; E86.0 Dehydration; Z87.891 Personal history of nicotine dependence; R63.4 Abnormal weight loss; R63.0 Anorexia; Z51.5 Encounter for palliative care; Z66 Do not resuscitate; Z86.010 Personal history of colon polyps
CPT/HCPCS: 49083; 70553; 71010; 71250; 74176; 74183; 76377; 80048; 80053; 80074; 80076; 81001; 82042; 82103; 82105; 82140; 82150; 82378; 82390; 82728; 82945; 82948; 83520; 83540; 83550; 83615; 83690; 84155; 84157; 84300; 84702; 85007; 85025; 85027; 85610; 85730; 86038; 86039; 86256; 86301; 86355; 86357; 86359; 86360; 87040; 87070; 87205; 87641; 89051; 93005; 96374; 96375; 99211; A9577; C1729; C9113; G0463; J0456; J0610; J0692; J0696; J1265; J1630; J2270; J3430; J7030; J7040; J7042; J7050; P9047